=== PATIENT | female | born 1950 | race Caucasian/White ===

== ENCOUNTER → 2016-10-19 | Outpatient (CLI) | payer MEDICARE ==
--- NOTE | 2016-10-27 12:02 | P.ARTDOP ---
Arterial Doppler LOWER EXTREMITY ARTERIAL DOPPLER: DATE OF SERVICE: 10/19/2016 Reason for study: PVD suspected. Doppler waveforms: Multiphasic bilaterally throughout Pulse volume recording: Normal configuration. Pressure gradients: None. Ankle-brachial indices: Greater than 1 bilaterally. Toe pressures: 114 on the right, 123 on the left Impression: Normal study.
== END | disposition home or self-care (01) ==
LOC: RADUSWWP 13:02
PROVIDERS: ATTEND Family Medicine
DX: I73.9 Peripheral vascular disease, unspecified (principal)
CPT/HCPCS: 93923

== ENCOUNTER 2016-11-10 13:39 | Emergency (ER) | payer MEDICARE ==
[2016-11-10] MEDS ORDERED: diphenhydrAMINE 50 MG/ML 1 ML VIAL IVP STA (14:09)
[2016-11-10] MEDS ORDERED: SODIUM CHLORIDE 0.9% 1,000 ML IV ONE (14:09)
[2016-11-10] MEDS ORDERED: METOCLOPRAMIDE 5 MG/ML 2 ML VIAL IVP STA (14:09)
[2016-11-10] MEDS ORDERED: DULoxetine HCL 60 MG CAPSULE.DR PO STA (14:12)
[2016-11-10] MEDS ORDERED: ATENOLOL 50 MG TAB PO STA (14:12)
--- NOTE | 2016-11-10 14:34 | ED ---
General Adult HPI - General Chief complaint: Abdominal Pain Stated complaint: NAUSEA,VOMITING Time Seen by Provider: 11/10/16 13:59 Source: patient, EMS Mode of arrival: EMS Limitations: no limitations - History of Present Illness Initial comments: This is a 66-year-old female with a history of diabetes, hypertension who presents to the department for vomiting since yesterday. She states that she had multiple episodes of vomiting that she cannot count. She's also had diarrhea. She was unable to take any of her blood pressure medications this morning. She denies any abdominal pain. She admits to feeling intermittent chills or no fevers. No dysuria or hematuria. No blood in the vomit or stool. No other complaints. - Related Data Home Medications Medication Instructions Recorded Confirmed ALPRAZolam [Xanax] 0.25 mg PO DAILY PRN 11/10/16 11/10/16 Aspirin EC [Ecotrin Low Dose] 81 mg PO DAILY 11/10/16 11/10/16 Atenolol 100 mg PO DAILY 11/10/16 11/10/16 Carisoprodol [Soma] 350 mg PO TID PRN 11/10/16 11/10/16 Cholecalciferol [Vitamin D3] 1,000 unit PO DAILY 11/10/16 11/10/16 Cyanocobalamin [Vitamin B-12] 1,000 mcg PO DAILY 11/10/16 11/10/16 DULoxetine HCL [Cymbalta] 60 mg PO DAILY 11/10/16 11/10/16 Dicyclomine [Bentyl] 20 mg PO QID 11/10/16 11/10/16 Ergocalciferol (Vitamin D2) 50,000 units PO FR 11/10/16 11/10/16 [Drisdol] Fenofibrate Nanocrystallized 48 mg PO DAILY 11/10/16 11/10/16 [Fenofibrate] Gabapentin [Neurontin] 300 mg PO BID 11/10/16 11/10/16 INSULIN LISPRO (For Pump) [humaLOG 0.01 units SQ-PUMP CONTINUOUS 11/10/16 (For Pump)] Lansoprazole [Prevacid] 30 mg PO DAILY 11/10/16 11/10/16 Levothyroxine Sodium [Synthroid] 100 mcg PO DAILY 11/10/16 11/10/16 Lisinopril [Zestril] 20 mg PO DAILY 11/10/16 11/10/16 Nortriptyline HCl [Pamelor] 75 mg PO DAILY 11/10/16 11/10/16 Pioglitazone HCl [Actos] 30 mg PO DAILY 11/10/16 11/10/16 Simvastatin [Zocor] 10 mg PO HS 11/10/16 11/10/16 Ubidecarenone [Co Q-10] 200 mg PO DAILY 11/10/16 11/10/16 Vit A,C & E/Lutein/Minerals 1 tab PO DAILY 11/10/16 11/10/16 [Ocuvite with Lutein Tablet] Zolpidem [Ambien] 10 mg PO HS PRN 11/10/16 11/10/16 amLODIPine BESYLATE [Norvasc] 15 mg PO DAILY 11/10/16 11/10/16 metFORMIN HCL 1,000 mg PO BID 11/10/16 11/10/16 sitaGLIPtin [Januvia] 50 mg PO DAILY 11/10/16 11/10/16 valACYclovir [Valtrex] 500 mg PO DAILY 11/10/16 11/10/16 Previous Rx's Medication Instructions Recorded Metoclopramide HCl [Reglan] 10 mg PO TID PRN #15 tablet 11/10/16 Allergies Allergy/AdvReac Type Severity Reaction Status Date / Time celecoxib [From Celebrex] Allergy Rash/Hives Verified 11/10/16 14:08 colistin Allergy Unknown Verified 11/10/16 14:08 [From Cortisporin-TC] hydrocortisone Allergy Unknown Verified 11/10/16 14:08 [From Cortisporin-TC] neomycin Allergy Unknown Verified 11/10/16 14:08 [From Cortisporin-TC] terconazole [From Terazol 3] Allergy Unknown Verified 11/10/16 14:08 thonzonium bromide Allergy Unknown Verified 11/10/16 14:08 [From Cortisporin-TC] adhesive tape AdvReac Nausea Verified 11/10/16 14:08 Review of Systems ROS Statement: Those systems with pertinent positive or pertinent negative responses have been documented in the HPI. ROS Other: All systems not noted in ROS Statement are negative. Past Medical History Past Medical History: Diabetes Mellitus, Fibromyalgia, Hypertension, Osteoarthritis (OA), Thyroid Disorder History of Any Multi-Drug Resistant Organisms: None Reported Past Surgical History: Back Surgery, Breast Surgery, Section, Cholecystectomy, Tonsillectomy Additional Past Surgical History / Comment(s): left breast, partial thyroid Past Psychological History: Depression Smoking Status: Never smoker Past Alcohol Use History: Rare Past Drug Use History: None Reported General Exam - General Exam Comments Initial Comments: Constitutional: Awake alert Appears comfortable Head: Normocephalic atraumatic Eyes: no conjunctival injection No scleral icterus EOMI Neck: No JVD Supple Heart: Tachycardia normal S1-S2 no murmurs Lungs: Clear to auscultation bilaterally No wheezing No rales Abdomen: Soft nondistended nontender Extremities: Non edematous DP pulses intact Radial pulses intact Neuro: A&Ox3 No focal neurologic deficits Psych: Appropriate mood and affect Limitations: no limitations Course Vital Signs 11/10/16 11/10/16 13:44 15:04 Temperature 98.6 F Pulse Rate 104 H 80 Respiratory 16 16 Rate Blood Pressure 209/91 197/90 O2 Sat by Pulse 99 99 Oximetry EKG Findings - EKG Comments: EKG Findings:: EKG showing sinus tachycardia at a rate of 107. No ST segment changes or T-wave inversions. QTC is 485. Other intervals are normal. No ectopy. Medical Decision Making - Medical Decision Making This 66-year-old female presents emergency room for nausea, vomiting, diarrhea. The patient feels much improved after Reglan and is tolerating oral fluids at bedside. The patient did have evidence for ketoacidosis on blood work however VBG did not show any decreased pH. There are ketones in her urine and this is likely from starvation ketosis from all the vomiting she's been having. At this time since the patient's vomiting is controlled feel itching go home and continue with Reglan at home. She can drink plenty of fluids and checked her sugars as needed. She can return if she has worsening or changing symptoms. All questions were answered. - Lab Data Result diagrams: 11/10/16 14:00 11/10/16 14:00 Lab Results 11/10/16 11/10/16 11/10/16 Range/Units 14:00 14:00 15:46 WBC 10.9 H (3.8-10.6) k/uL RBC 5.18 (3.80-5.40) m/uL Hgb 14.7 (11.4-16.0) gm/dL Hct 44.7 (34.0-46.0) % MCV 86.1 (80.0-100.0) fL MCH 28.3 (25.0-35.0) pg MCHC 32.9 (31.0-37.0) g/dL RDW 12.9 (11.5-15.5) % Plt Count 223 (150-450) k/uL Neutrophils % 81 % Lymphocytes % 10 % Monocytes % 7 % Eosinophils % 0 % Basophils % 1 % Neutrophils # 8.8 H (1.3-7.7) k/uL Lymphocytes # 1.1 (1.0-4.8) k/uL Monocytes # 0.7 (0-1.0) k/uL Eosinophils # 0.0 (0-0.7) k/uL Basophils # 0.1 (0-0.2) k/uL VBG pH (7.31-7.41) VBG pCO2 (37-51) mmHg VBG HCO3 (24-28) mmol/L Sodium 134 L (137-145) mmol/L Potassium 3.7 (3.5-5.1) mmol/L Chloride 97 L (98-107) mmol/L Carbon Dioxide 18 L (22-30) mmol/L Anion Gap 19 mmol/L BUN 12 (7-17) mg/dL Creatinine 0.47 L (0.52-1.04) mg/dL Est GFR (MDRD) Af Amer >60 (>60 ml/min/1.73 sqM) Est GFR (MDRD) Non-Af >60 (>60 ml/min/1.73 sqM) Glucose 219 H (74-99) mg/dL Calcium 9.9 (8.4-10.2) mg/dL Total Bilirubin 0.9 (0.2-1.3) mg/dL AST 24 (14-36) U/L ALT 26 (9-52) U/L Alkaline Phosphatase 72 (38-126) U/L Total Protein 7.8 (6.3-8.2) g/dL Albumin 5.0 (3.5-5.0) g/dL Amylase 59 (30-110) U/L Lipase 83 (23-300) U/L Urine Color Urine Appearance (Clear) Urine pH (5.0-8.0) Ur Specific [place] (1.001-1.035) Urine Protein (Negative) Urine Glucose (UA) (Negative) Urine Ketones (Negative) Urine Blood (Negative) Urine Nitrate (Negative) Urine Bilirubin (Negative) Urine Urobilinogen (<2.0) mg/dL Ur Leukocyte Esterase (Negative) Urine RBC (0-5) /hpf Urine WBC (0-5) /hpf Urine Bacteria (None) /hpf Acetone, Qual Positive (Negative) 11/10/16 11/10/16 Range/Units 15:53 15:53 WBC (3.8-10.6) k/uL RBC (3.80-5.40) m/uL Hgb (11.4-16.0) gm/dL Hct (34.0-46.0) % MCV (80.0-100.0) fL MCH (25.0-35.0) pg MCHC (31.0-37.0) g/dL RDW (11.5-15.5) % Plt Count (150-450) k/uL Neutrophils % % Lymphocytes % % Monocytes % % Eosinophils % % Basophils % % Neutrophils # (1.3-7.7) k/uL Lymphocytes # (1.0-4.8) k/uL Monocytes # (0-1.0) k/uL Eosinophils # (0-0.7) k/uL Basophils # (0-0.2) k/uL VBG pH 7.40 (7.31-7.41) VBG pCO2 34 L (37-51) mmHg VBG HCO3 21 L (24-28) mmol/L Sodium (137-145) mmol/L Potassium (3.5-5.1) mmol/L Chloride (98-107) mmol/L Carbon Dioxide (22-30) mmol/L Anion Gap mmol/L BUN (7-17) mg/dL Creatinine (0.52-1.04) mg/dL Est GFR (MDRD) Af Amer (>60 ml/min/1.73 sqM) Est GFR (MDRD) Non-Af (>60 ml/min/1.73 sqM) Glucose (74-99) mg/dL Calcium (8.4-10.2) mg/dL Total Bilirubin (0.2-1.3) mg/dL AST (14-36) U/L ALT (9-52) U/L Alkaline Phosphatase (38-126) U/L Total Protein (6.3-8.2) g/dL Albumin (3.5-5.0) g/dL Amylase (30-110) U/L Lipase (23-300) U/L Urine Color Yellow Urine Appearance Clear (Clear) Urine pH 7.0 (5.0-8.0) Ur Specific [place] 1.011 (1.001-1.035) Urine Protein 2+ H (Negative) Urine Glucose (UA) 4+ H (Negative) Urine Ketones 3+ H (Negative) Urine Blood Negative (Negative) Urine Nitrate Negative (Negative) Urine Bilirubin Negative (Negative) Urine Urobilinogen <2.0 (<2.0) mg/dL Ur Leukocyte Esterase Negative (Negative) Urine RBC 1 (0-5) /hpf Urine WBC 1 (0-5) /hpf Urine Bacteria Rare H (None) /hpf Acetone, Qual (Negative) Disposition Clinical Impression: Nausea vomiting and diarrhea, Ketosis Disposition: HOME SELF-CARE Condition: Stable Instructions: Acute Nausea and Vomiting (ED) Prescriptions: Metoclopramide HCl [Reglan] 10 mg PO TID PRN #15 tablet PRN Reason: Nausea Referrals: Keyon Bryant MD [Primary Care Provider] - 1-2 days
[2016-11-10 14:58] LABS: Basophils # (A) 0.1 k/uL (0-0.2); Basophils % (A) 1 %; CH 28.9; CHCM 33.6; Eosinophils % (A) 0 %; HCT 44.7 % (34.0-46.0); HGB 14.7 gm/dL (11.4-16.0); Luc # (Auto) 0.14; Luc % (Auto) 1; Lymphocytes # (A) 1.1 k/uL (1.0-4.8); Lymphocytes % (A) 10 %; MCH 28.3 pg (25.0-35.0); MCHC 32.9 g/dL (31.0-37.0); MCV 86.1 fL (80.0-100.0); Mean Platelet Volume 8.4; Monocytes # (A) 0.7 k/uL (0-1.0); Monocytes % (A) 7 %; Neutrophils # (A) 8.8 k/uL (1.3-7.7); Neutrophils % (A) 81 %; RBC 5.18 m/uL (3.80-5.40); RDW 12.9 % (11.5-15.5); WBC 10.9 k/uL (3.8-10.6); WBC (Perox) 10.62
[2016-11-10 15:15] LABS: ALT 26 U/L (9-52); AST 24 U/L (14-36); Alkaline Phosphatase 72 U/L (38-126); Amylase 59 U/L (30-110); Anion Gap 19 mmol/L; Blood Urea Nitrogen 12 mg/dL (7-17); Calcium 9.9 mg/dL (8.4-10.2); Carbon Dioxide 18 mmol/L (22-30); Chloride 97 mmol/L (98-107); Glucose 219 mg/dL (74-99); Non-African American GFR(MDRD) >60 (>60 ml/min/1.73 sqM); Potassium 3.7 mmol/L (3.5-5.1); Sodium 134 mmol/L (137-145); Total Bilirubin 0.9 mg/dL (0.2-1.3); Total Protein 7.8 g/dL (6.3-8.2)
[2016-11-10 16:09] LABS: Appearance,Urine Clear (Clear); Bacteria,Urine Rare /hpf; Bilirubin,Urine Negative (Negative); Glucose,Urine (UA) 4+ (Negative); Leukocyte Esterase,Urine Negative (Negative); Nitrite,Urine Negative (Negative); Particle Count 620; Protein,Urine 2+ (Negative); RBC,Urine 1 /hpf (0-5); Specific Gravity,Urine 1.011 (1.001-1.035); UA Billing (MACRO vs. MICRO) MICRO; Urobilinogen,Urine <2.0 mg/dL (<2.0); WBC,Urine 1 /hpf (0-5)
[2016-11-10 16:14] LABS: VBG PH 7.4 (7.31-7.41)
[2016-11-10 16:16] LABS: Ketones,Urine 3+ (Negative)
[2016-11-10 16:34] VITALS: BP 138/87; PULSE 87; RESP 18; TEMP 97.9
== END 2016-11-10 16:33 | disposition home or self-care (01) ==
LOC: EC 13:39
DX: R11.2 Nausea with vomiting, unspecified (principal); R19.7 Diarrhea, unspecified; E87.2 Acidosis; I10 Essential (primary) hypertension; E11.8 Type 2 diabetes mellitus with unspecified complications; M79.7 Fibromyalgia; E07.9 Disorder of thyroid, unspecified; M19.90 Unspecified osteoarthritis, unspecified site; L29.9 Pruritus, unspecified; F32.9 Major depressive disorder, single episode, unspecified; Z79.84 Long term (current) use of oral hypoglycemic drugs; Z96.41 Presence of insulin pump (external) (internal); Z79.82 Long term (current) use of aspirin; Z79.4 Long term (current) use of insulin; Z79.899 Other long term (current) drug therapy; Z88.1 Allergy status to other antibiotic agents; Z88.8 Allergy status to other drugs, medicaments and biological substances
CPT/HCPCS: 99284; 96374; 96375; 96361; 36415; 93005; 80053; 82150; 82803; 82009; 83690; 85025; 81001; J1200; J2765

== ENCOUNTER → 2017-05-30 | Outpatient (CLI) | payer MEDICARE ==
--- NOTE | 2017-06-01 07:07 | MM ---
Reason for exam: screening (asymptomatic). Last mammogram was performed 1 year and 1 month ago. History: Patient is postmenopausal and has history of high-risk lesion on a previous biopsy at age 62. High risk left breast needle localization of both breasts, January 30, 2013. High risk left mammotome panel of the left breast, January 23, 2013. Took estrogen for 2 years. Took progesterone for 2 years. Physical Findings: A clinical breast exam by your physician is recommended on an annual basis and results should be correlated with mammographic findings. MG 3D Screening Mammo W/Cad Bilateral CC and MLO view(s) were taken. Prior study comparison: May 12, 2016, bilateral MG 3d diag mammo w/cad GOPAL. March 12, 2015, bilateral MG diagnostic mammo w CAD GOPAL. February 04, 2014, bilateral MG diagnostic mammo w CAD GOPAL. There are scattered fibroglandular densities. Finding: There are a few typically benign round calcifications in both breasts. There is no discrete abnormality. ASSESSMENT: Benign, BI-RAD 2 RECOMMENDATION: Routine screening mammogram of both breasts in 1 year.
== END | disposition home or self-care (01) ==
LOC: RADMAMWWP 12:58
PROVIDERS: ATTEND Family Medicine
DX: Z12.31 Encounter for screening mammogram for malignant neoplasm of breast (principal)
CPT/HCPCS: 77063; G0202

== ENCOUNTER → 2018-06-08 | Outpatient (CLI) | payer MEDICARE ==
--- NOTE | 2018-06-09 11:05 | MM ---
Reason for exam: screening (asymptomatic). Last mammogram was performed 1 year ago. History: Patient is postmenopausal and has history of high-risk lesion on a previous biopsy at age 62. High risk left breast needle localization of both breasts, January 30, 2013. High risk left mammotome panel of the left breast, January 23, 2013. Took estrogen for 2 years. Took progesterone for 2 years. Physical Findings: A clinical breast exam by your physician is recommended on an annual basis and results should be correlated with mammographic findings. MG 3D Screening Mammo W/Cad Bilateral CC and MLO view(s) were taken. Prior study comparison: May 30, 2017, bilateral MG 3d screening mammo w/cad. May 12, 2016, bilateral MG 3d diag mammo w/cad GOPAL. The breast tissue is heterogeneously dense. This may lower the sensitivity of mammography. Stable benign calcifications. There is no discrete abnormality. No significant changes when compared with prior studies. ASSESSMENT: Benign, BI-RAD 2 RECOMMENDATION: Routine screening mammogram of both breasts in 1 year.
== END | disposition home or self-care (01) ==
LOC: RADMAMWWP 14:42
PROVIDERS: ATTEND Family Medicine
DX: Z12.31 Encounter for screening mammogram for malignant neoplasm of breast (principal)
CPT/HCPCS: 77063; 77067

== ENCOUNTER 2019-03-12 13:29 | Inpatient (IN) | payer MEDICARE ==
--- NOTE | 2019-03-12 14:23 | ED ---
General Adult HPI - General Chief complaint: GI Bleed Stated complaint: Blood in stool Time Seen by Provider: 03/12/19 13:35 Source: patient, RN notes reviewed Mode of arrival: wheelchair Limitations: no limitations - History of Present Illness Initial comments: This is a 68-year-old female who presents emergency Department complaining of GI bleed. Patient states she's an upper respiratory infection over the last few days and a couple episodes of diarrhea but not heavy diarrhea. Patient states she started having some bright red blood per rectum last night he said 5-6 total episodes today. Patient denies any abdominal pain. Patient's any fever or chills. Patient stated back pain. Patient denies any dysuria hematuria urinary frequency. Patient denies headache patient denies numbness weakness. Patient denies any chest pain or palpitations. Patient denies any shortness of breath. She does states she has overall generalized weakness. - Related Data Home Medications Medication Instructions Recorded Confirmed Aspirin EC [Ecotrin Low Dose] 81 mg PO DAILY 11/10/16 03/12/19 Atenolol 100 mg PO DAILY 11/10/16 03/12/19 Cholecalciferol [Vitamin D3] 2,000 unit PO DAILY 11/10/16 03/12/19 Cyanocobalamin [Vitamin B-12] 1,000 mcg PO DAILY 11/10/16 03/12/19 DULoxetine HCL [Cymbalta] 60 mg PO DAILY 11/10/16 03/12/19 Dicyclomine [Bentyl] 20 mg PO QID 11/10/16 03/12/19 Ergocalciferol (Vitamin D2) 50,000 units PO FR 11/10/16 03/12/19 [Drisdol] Fenofibrate Nanocrystallized 48 mg PO DAILY 11/10/16 03/12/19 [Fenofibrate] Gabapentin [Neurontin] 300 mg PO TID 11/10/16 03/12/19 INSULIN LISPRO (For Pump) [humaLOG 0.01 units SQ-PUMP CONTINUOUS 11/10/16 03/12/19 (For Pump)] Lansoprazole [Prevacid] 30 mg PO DAILY 11/10/16 03/12/19 Levothyroxine Sodium [Synthroid] 100 mcg PO DAILY 11/10/16 03/12/19 Lisinopril [Zestril] 20 mg PO DAILY 11/10/16 03/12/19 Nortriptyline HCl [Pamelor] 75 mg PO DAILY 11/10/16 03/12/19 Pioglitazone HCl [Actos] 30 mg PO DAILY 11/10/16 03/12/19 Ubidecarenone [Co Q-10] 200 mg PO DAILY 11/10/16 03/12/19 Zolpidem [Ambien] 10 mg PO HS PRN 11/10/16 03/12/19 metFORMIN HCL 1,000 mg PO BID 11/10/16 03/12/19 Acetaminophen Tab [Tylenol Tab] 650 mg PO Q6H PRN 03/12/19 03/12/19 Ascorbic Acid [Vitamin C] 500 mg PO BID 03/12/19 03/12/19 Melatonin 5 mg PO HS 03/12/19 03/12/19 Meloxicam [Mobic] 15 mg PO DAILY 03/12/19 03/12/19 Simvastatin [Zocor] 20 mg PO HS 03/12/19 03/12/19 amLODIPine [Norvasc] 2.5 mg PO TID 03/12/19 03/12/19 Allergies Allergy/AdvReac Type Severity Reaction Status Date / Time celecoxib [From Celebrex] Allergy Rash/Hives Verified 03/12/19 14:03 colistin Allergy Unknown Verified 03/12/19 14:03 [From Cortisporin-TC] hydrocortisone Allergy Unknown Verified 03/12/19 14:03 [From Cortisporin-TC] neomycin Allergy Unknown Verified 03/12/19 14:03 [From Cortisporin-TC] terconazole [From Terazol 3] Allergy Unknown Verified 03/12/19 14:03 thonzonium bromide Allergy Unknown Verified 03/12/19 14:03 [From Cortisporin-TC] adhesive tape AdvReac Nausea Verified 03/12/19 14:03 Review of Systems ROS Statement: Those systems with pertinent positive or pertinent negative responses have been documented in the HPI. ROS Other: All systems not noted in ROS Statement are negative. Past Medical History Past Medical History: Diabetes Mellitus, Fibromyalgia, Hypertension, Osteoarthritis (OA), Thyroid Disorder History of Any Multi-Drug Resistant Organisms: None Reported Past Surgical History: Back Surgery, Breast Surgery, Section, Cholecystectomy, Tonsillectomy Additional Past Surgical History / Comment(s): left breast, partial thyroid Past Psychological History: Depression Smoking Status: Never smoker Past Alcohol Use History: Rare Past Drug Use History: None Reported General Exam - General Exam Comments Initial Comments: GENERAL: Patient is well-developed and well-nourished. Patient is nontoxic and well- hydrated and is in mild distress. ENT: Neck is soft and supple. No significant lymphadenopathy is noted. Oropharynx is clear. Moist mucous membranes. Neck has full range of motion without eliciting any pain. EYES: The sclera were anicteric and conjunctiva were pink and moist. Extraocular movements were intact and pupils were equal round and reactive to light. Ey elids were unremarkable. PULMONARY: Unlabored respirations. Good breath sounds bilaterally. No audible rales rhonchi or wheezing was noted. CARDIOVASCULAR: There is a regular rate and rhythm without any murmurs gallops or rubs. ABDOMEN: Soft and nontender with normal bowel sounds. SKIN: Skin is clear with no lesions or rashes and otherwise unremarkable. NEUROLOGIC: Patient is alert and oriented x3. Cranial nerves II through XII are grossly intact. Motor and sensory are also intact. Normal speech, volume and content. Symmetrical smile. MUSCULOSKELETAL: Normal extremities with adequate strength and full range of motion. LYMPHATICS: No significant lymphadenopathy is noted PSYCHIATRIC: Normal psychiatric evaluation. Limitations: no limitations Course Vital Signs 03/12/19 03/12/19 03/12/19 13:32 15:17 16:21 Temperature 98.2 F Pulse Rate 68 70 70 Respiratory 16 18 18 Rate Blood Pressure 105/61 136/66 144/93 O2 Sat by Pulse 96 98 96 Oximetry Medical Decision Making - Medical Decision Making EKG shows normal sinus rhythm at 62 bpm NE interval is 182 QRS is 80 QT interval 420 QTC is 426 per patient's EKG shows no ST segment elevation or depression. Doctor Dr. carson but admitting the patient he agreed to admit the patient admitted the patient consult to GI and repeated CBCs. - Lab Data Result diagrams: 03/12/19 14:27 03/12/19 14:27 Lab Results 03/12/19 03/12/19 03/12/19 Range/Units 14:27 14:27 14:27 WBC 12.3 H (3.8-10.6) k/uL RBC 4.73 (3.80-5.40) m/uL Hgb 13.0 (11.4-16.0) gm/dL Hct 40.2 (34.0-46.0) % MCV 84.9 (80.0-100.0) fL MCH 27.6 (25.0-35.0) pg MCHC 32.5 (31.0-37.0) g/dL RDW 13.1 (11.5-15.5) % Plt Count 153 (150-450) k/uL Neutrophils % 84 % Lymphocytes % 9 % Monocytes % 6 % Eosinophils % 0 % Basophils % 0 % Neutrophils # 10.3 H (1.3-7.7) k/uL Lymphocytes # 1.1 (1.0-4.8) k/uL Monocytes # 0.7 (0-1.0) k/uL Eosinophils # 0.1 (0-0.7) k/uL Basophils # 0.0 (0-0.2) k/uL PT (9.0-12.0) sec INR (<1.2) APTT (22.0-30.0) sec Sodium 136 L (137-145) mmol/L Potassium 4.1 (3.5-5.1) mmol/L Chloride 100 (98-107) mmol/L Carbon Dioxide 25 (22-30) mmol/L Anion Gap 11 mmol/L BUN 14 (7-17) mg/dL Creatinine 0.67 (0.52-1.04) mg/dL Est GFR (CKD-EPI)AfAm >90 (>60 ml/min/1.73 sqM) Est GFR (CKD-EPI)NonAf >90 (>60 ml/min/1.73 sqM) Glucose 185 H (74-99) mg/dL Calcium 8.6 (8.4-10.2) mg/dL Total Bilirubin 0.6 (0.2-1.3) mg/dL AST 30 (14-36) U/L ALT 17 (9-52) U/L Alkaline Phosphatase 71 (38-126) U/L Total Protein 6.1 L (6.3-8.2) g/dL Albumin 3.8 (3.5-5.0) g/dL Blood Type O Negative Blood Type Confirm Blood Type Recheck CABO Indicated Antibody Screen NEGATIVE Spec Expiration Date 03/15/2019232603/12/19 03/12/19 Range/Units 14:27 14:39 WBC (3.8-10.6) k/uL RBC (3.80-5.40) m/uL Hgb (11.4-16.0) gm/dL Hct (34.0-46.0) % MCV (80.0-100.0) fL MCH (25.0-35.0) pg MCHC (31.0-37.0) g/dL RDW (11.5-15.5) % Plt Count (150-450) k/uL Neutrophils % % Lymphocytes % % Monocytes % % Eosinophils % % Basophils % % Neutrophils # (1.3-7.7) k/uL Lymphocytes # (1.0-4.8) k/uL Monocytes # (0-1.0) k/uL Eosinophils # (0-0.7) k/uL Basophils # (0-0.2) k/uL PT 9.9 (9.0-12.0) sec INR 0.9 (<1.2) APTT 26.3 (22.0-30.0) sec Sodium (137-145) mmol/L Potassium (3.5-5.1) mmol/L Chloride (98-107) mmol/L Carbon Dioxide (22-30) mmol/L Anion Gap mmol/L BUN (7-17) mg/dL Creatinine (0.52-1.04) mg/dL Est GFR (CKD-EPI)AfAm (>60 ml/min/1.73 sqM) Est GFR (CKD-EPI)NonAf (>60 ml/min/1.73 sqM) Glucose (74-99) mg/dL Calcium (8.4-10.2) mg/dL Total Bilirubin (0.2-1.3) mg/dL AST (14-36) U/L ALT (9-52) U/L Alkaline Phosphatase (38-126) U/L Total Protein (6.3-8.2) g/dL Albumin (3.5-5.0) g/dL Blood Type Blood Type Confirm O Negative Blood Type Recheck Antibody Screen Spec Expiration Date Disposition Clinical Impression: Gastrointestinal hemorrhage Disposition: ADMITTED IP TO THIS [facility] Referrals: Keyon Bryant MD [Primary Care Provider] - 1-2 days Time of Disposition: 16:27
[2019-03-12 14:39] LABS: Basophils % (A) 0 %; Eosinophils # (A) 0.1 k/uL (0-0.7); Eosinophils % (A) 0 %; HCT 40.2 % (34.0-46.0); Lymphocytes # (A) 1.1 k/uL (1.0-4.8); Lymphocytes % (A) 9 %; MCH 27.6 pg (25.0-35.0); MCHC 32.5 g/dL (31.0-37.0); MCV 84.9 fL (80.0-100.0); Mean Platelet Volume 8.9; Monocytes # (A) 0.7 k/uL (0-1.0); Monocytes % (A) 6 %; Neutrophils # (A) 10.3 k/uL (1.3-7.7); Neutrophils % (A) 84 %; Platelet Count 153 k/uL (150-450); RBC 4.73 m/uL (3.80-5.40); RDW 13.1 % (11.5-15.5); WBC 12.3 k/uL (3.8-10.6)
[2019-03-12 14:47] LABS: INR 0.9 (<1.2); Partial Thromboplastin Time 26.3 sec (22.0-30.0); Prothrombin Time 9.9 sec (9.0-12.0)
[2019-03-12 15:10] LABS: ALT 17 U/L (9-52); AST 30 U/L (14-36); African American GFR (CKD) >90 (>60 ml/min/1.73 sqM); Albumin 3.8 g/dL (3.5-5.0); Alkaline Phosphatase 71 U/L (38-126); Anion Gap 11 mmol/L; Blood Urea Nitrogen 14 mg/dL (7-17); Calcium 8.6 mg/dL (8.4-10.2); Carbon Dioxide 25 mmol/L (22-30); Chloride 100 mmol/L (98-107); Glucose 185 mg/dL (74-99); Potassium 4.1 mmol/L (3.5-5.1); Sodium 136 mmol/L (137-145); Total Bilirubin 0.6 mg/dL (0.2-1.3); Total Protein 6.1 g/dL (6.3-8.2)
[2019-03-12] MEDS ORDERED: SODIUM CHLORIDE 0.9% 1,000 ML IV ONE (16:27)
[2019-03-12 18:06] LABS: Glucose,Whole Blood 162 mg/dL (75-99)
[2019-03-12 20:07] VITALS: BMI 34.7
[2019-03-12 20:12] LABS: Glucose,Whole Blood 176 mg/dL (75-99)
[2019-03-12] MEDS ORDERED: metFORMIN 500 MG TAB PO SCH (21:00)
[2019-03-12] MEDS: DULoxetine HCL 60 MG CAPSULE.DR PO SCH (21:29)
[2019-03-12] MEDS: ASCORBIC ACID 500 MG TAB PO SCH (21:30)
[2019-03-12] MEDS: amLODIPine 2.5 MG TAB PO SCH (21:30)
[2019-03-12] MEDS: ATORVASTATIN 10 MG TAB PO SCH (21:30)
[2019-03-12] MEDS: MELATONIN 5 MG TABLET PO SCH (21:30)
[2019-03-12] MEDS: DICYCLOMINE 20 MG TAB PO SCH (21:30)
[2019-03-12] MEDS: GABAPENTIN 300 MG CAP PO SCH (22:49)
[2019-03-12] MEDS: ZOLPIDEM 10 MG TAB PO PRN (23:38)
[2019-03-13 02:17] LABS: Glucose,Whole Blood 152 mg/dL (75-99)
[2019-03-13] MEDS: ACETAMINOPHEN TAB 325 MG TAB PO PRN ×3 (04:29→19:48)
[2019-03-13] MEDS: LEVOTHYROXINE 100 MCG TAB PO SCH (05:58)
[2019-03-13 08:33] LABS: Glucose,Whole Blood 153 mg/dL (75-99)
[2019-03-13 08:57] LABS: Basophils % (A) 0 %; Eosinophils % (A) 0 %; HGB 12.5 gm/dL (11.4-16.0); Lymphocytes # (A) 1.4 k/uL (1.0-4.8); Lymphocytes % (A) 12 %; MCH 26.6 pg (25.0-35.0); MCHC 31.3 g/dL (31.0-37.0); Mean Platelet Volume 9.3; Monocytes # (A) 0.5 k/uL (0-1.0); Monocytes % (A) 4 %; Neutrophils # (A) 9.1 k/uL (1.3-7.7); Neutrophils % (A) 82 %; Platelet Count 142 k/uL (150-450); RBC 4.71 m/uL (3.80-5.40); RDW 13.6 % (11.5-15.5); WBC 11.1 k/uL (3.8-10.6)
[2019-03-13] MEDS ORDERED: NON-FORMULARY DRUG (Ubidecarenone [Co Q-10] 200 MG) PO SCH (09:00)
[2019-03-13] MEDS: ASPIRIN 81 MG PO SCH (09:22)
[2019-03-13] MEDS: ASCORBIC ACID 500 MG TAB PO SCH ×2 (09:22→21:02)
[2019-03-13] MEDS: DICYCLOMINE 20 MG TAB PO SCH ×4 (09:22→21:02)
[2019-03-13] MEDS: CYANOCOBALAMIN 500 MCG TAB PO SCH (09:22)
[2019-03-13] MEDS: CHOLECALCIFEROL 1,000 UNIT TAB PO SCH (09:22)
[2019-03-13] MEDS: FENOFIBRATE 54 MG TAB PO SCH (09:23)
[2019-03-13] MEDS: PIOGLITAZONE 30 MG TAB PO SCH (09:23)
[2019-03-13] MEDS: MELOXICAM 7.5 MG TAB PO SCH (09:23)
[2019-03-13] MEDS: GABAPENTIN 300 MG CAP PO SCH ×3 (09:23→21:02)
[2019-03-13] MEDS: NORTRIPTYLINE 25 MG CAP PO SCH (09:27)
[2019-03-13] MEDS: ATENOLOL 50 MG TAB PO SCH (09:58)
[2019-03-13] MEDS: PANTOPRAZOLE 40 MG TABLET PO SCH (09:59)
[2019-03-13] MEDS: LISINOPRIL 20 MG TAB PO SCH (09:59)
[2019-03-13] MEDS: amLODIPine 2.5 MG TAB PO SCH ×3 (09:59→21:02)
[2019-03-13] MEDS: DULoxetine HCL 60 MG CAPSULE.DR PO SCH (09:59)
[2019-03-13] MEDS ORDERED: INSULIN ASPART (NovoLOG) 100 UNIT/ML VIAL SQ PRN (11:02)
[2019-03-13] MEDS ORDERED: INSULIN PUMP BASAL RATES 1 EACH MISC MISCELLANE PRN (11:02)
[2019-03-13] MEDS ORDERED: INSULIN PUMP ACTIVE INSULIN 1 EACH MISC MISCELLANE PRN (11:02)
[2019-03-13] MEDS ORDERED: INSPUCOR MISCELLANE PRN (11:02)
[2019-03-13] MEDS ORDERED: INSULIN PUMP TARGET GLUCOSE 1 EACH MISC MISCELLANE PRN (11:02)
[2019-03-13 11:09] LABS: Basophils % (A) 0 %; Eosinophils % (A) 0 %; HCT 38.7 % (34.0-46.0); HGB 12.2 gm/dL (11.4-16.0); Lymphocytes # (A) 0.8 k/uL (1.0-4.8); Lymphocytes % (A) 9 %; MCH 26.9 pg (25.0-35.0); MCHC 31.4 g/dL (31.0-37.0); MCV 85.7 fL (80.0-100.0); Mean Platelet Volume 8.8; Monocytes # (A) 0.5 k/uL (0-1.0); Monocytes % (A) 5 %; Neutrophils % (A) 84 %; Platelet Count 132 k/uL (150-450); RBC 4.52 m/uL (3.80-5.40); RDW 13.3 % (11.5-15.5); WBC 9.5 k/uL (3.8-10.6)
[2019-03-13 12:01] LABS: Glucose,Whole Blood 173 mg/dL (75-99)
--- NOTE | 2019-03-13 12:05 | P.CONS ---
History of Present Illness - Reason for Consult Consult date: 03/13/19 GI bleed Requesting physician: Perez Phan - Chief Complaint GI bleed - History of Present Illness 68-year-old female recent upper respiratory infection diarrhea admitted with diffuse lower abdominal pain with passage of several bright red bowel movements yesterday fever T-max 101. Patient is passed 3 blood tinged bowel movements this morning. Past medical history diabetes fiber myalgia GERD hypertension hypothyroidism IBS insomnia cholecystectomy depression. No history GI bleed. Last colonoscopy 2005 to her memory a few small polyps removed. No mentioning of colonic diverticular disease. No history of inflammatory bowel diseases. No history of gastric or bowel resections. Admission hemoglobin 13 presently 12.2. Platelet 153. White count 12.3 present ly 9.5. INR 0.9. BUN 14. Creatinine 0.6. Home medications include Mobic baby aspirin. Recent travels no sick contacts. Review of Systems Constitutional: Denies fever, chills, sweats, weight gain, or loss. HEENT: Negative for migraines, blurred vision or loss, earaches, drainage, tinnitus, oral mucosal lesions, dysphagia, or odynophagia. CARDIAC: Negative for chest pain, arrhythmias, or palpitation. RESPIRATORY: Negative for shortness of breath, hemoptysis, cough, or sputum production. GI: See HPI for pertinent findings. : Negative for hematuria, urgency, frequency, polyuria, or dysuria. GYNc: Denies possibility of . Negative vaginal discharge. MUSCULOSKELETAL: Negative for muscle aches, swelling, arthritis, and arthralgias. NEUROLOGIC: Negative for stroke or TIA. ENDOCRINE: Negative for thyroid problems. SKIN: Negative for rash or itching. PSYCHIATRIC: Negative history for depression and anxiety Past Medical History Past Medical History: Diabetes Mellitus, Fibromyalgia, GERD/Reflux, Hypertension, Osteoarthritis (OA), Thyroid Disorder Additional Past Medical History / Comment(s): Hypothyroidism, DDD, IBS, insomnia History of Any Multi-Drug Resistant Organisms: None Reported Past Surgical History: Back Surgery, Breast Surgery, Section, Cholecystectomy, Orthopedic Surgery, Tonsillectomy Additional Past Surgical History / Comment(s): Left breast lumpectomy 2012, p artial thyroidectomy, spinal fusion L3-L4 11/2014, C section x 3, Left knee replaced 2010, multiple D&C's, cataract surgery bilaterally, repair of a macular hole right eye Past Anesthesia/Blood Transfusion Reactions: Postoperative Nausea & Vomiting (PONV) Smoking Status: Never smoker - Past Family History Father Family Medical History: Coronary Artery Disease (CAD) Mother Family Medical History: Coronary Artery Disease (CAD) Medications and Allergies Home Medications Medication Instructions Recorded Confirmed Type Aspirin EC [Ecotrin Low Dose] 81 mg PO DAILY 11/10/16 03/12/19 History Atenolol 100 mg PO DAILY 11/10/16 03/12/19 History Cholecalciferol [Vitamin D3] 2,000 unit PO DAILY 11/10/16 03/12/19 History Cyanocobalamin [Vitamin B-12] 1,000 mcg PO DAILY 11/10/16 03/12/19 History DULoxetine HCL [Cymbalta] 60 mg PO DAILY 11/10/16 03/12/19 History Dicyclomine [Bentyl] 20 mg PO QID 11/10/16 03/12/19 History Ergocalciferol (Vitamin D2) 50,000 units PO FR 11/10/16 03/12/19 History [Drisdol] Fenofibrate Nanocrystallized 48 mg PO DAILY 11/10/16 03/12/19 History [Fenofibrate] Gabapentin [Neurontin] 300 mg PO TID 11/10/16 03/12/19 History INSULIN LISPRO (For Pump) [humaLOG 0.01 units SQ-PUMP CONTINUOUS 11/10/16 03/12/19 History (For Pump)] Lansoprazole [Prevacid] 30 mg PO DAILY 11/10/16 03/12/19 History Levothyroxine Sodium [Synthroid] 100 mcg PO DAILY 11/10/16 03/12/19 History Lisinopril [Zestril] 20 mg PO DAILY 11/10/16 03/12/19 History Nortriptyline HCl [Pamelor] 75 mg PO DAILY 11/10/16 03/12/19 History Pioglitazone HCl [Actos] 30 mg PO DAILY 11/10/16 03/12/19 History Ubidecarenone [Co Q-10] 200 mg PO DAILY 11/10/16 03/12/19 History Zolpidem [Ambien] 10 mg PO HS PRN 11/10/16 03/12/19 History metFORMIN HCL 1,000 mg PO BID 11/10/16 03/12/19 History Acetaminophen Tab [Tylenol Tab] 650 mg PO Q6H PRN 03/12/19 03/12/19 History Ascorbic Acid [Vitamin C] 500 mg PO BID 03/12/19 03/12/19 History Melatonin 5 mg PO HS 03/12/19 03/12/19 History Meloxicam [Mobic] 15 mg PO DAILY 03/12/19 03/12/19 History Simvastatin [Zocor] 20 mg PO HS 03/12/19 03/12/19 History amLODIPine [Norvasc] 2.5 mg PO TID 03/12/19 03/12/19 History Allergies Allergy/AdvReac Type Severity Reaction Status Date / Time celecoxib [From Celebrex] Allergy Rash/Hives Verified 03/12/19 14:03 colistin Allergy Unknown Verified 03/12/19 14:03 [From Cortisporin-TC] hydrocortisone Allergy Unknown Verified 03/12/19 14:03 [From Cortisporin-TC] neomycin Allergy Unknown Verified 03/12/19 14:03 [From Cortisporin-TC] terconazole [From Terazol 3] Allergy Unknown Verified 03/12/19 14:03 thonzonium bromide Allergy Unknown Verified 03/12/19 14:03 [From Cortisporin-TC] adhesive tape AdvReac Nausea Verified 03/12/19 14:03 Physical Exam Vitals: Vital Signs Temp Pulse Pulse Resp BP BP Pulse Ox 03/13/19 04:21 99.6 F 92 16 141/57 87 L 03/13/19 00:30 18 03/12/19 22:55 98.0 F 03/12/19 21:00 101 F H 76 18 165/81 90 L 03/12/19 18:01 99 F 77 16 142/67 96 03/12/19 17:32 98.5 F 75 18 165/71 96 03/12/19 16:21 70 18 144/93 96 03/12/19 15:17 70 18 136/66 98 03/12/19 13:32 98.2 F 68 16 105/61 96 Intake and Output 03/12/19 03/13/19 03/13/19 22:59 06:59 14:59 Intake Total 600 Balance 600 Intake: Intake, IV Titration 600 Amount Sodium Chloride 0.9% 1, 600 000 ml @ 75 mls/hr IV . [id number] ONE Rx#:[id number] Other: Voiding Method Toilet # Voids 1 # Bowel Movements 1 General appearance: The patient is alert, oriented, in no acute distress. HET: Head is normocephalic and atraumatic. Pupils are equal and reactive. Oropharynx is clear without lesions. Neck: Supple without lymphadenopathy. Trachea midline. Heart: S1 S2. Regular rate and rhythm. Lungs: No crackles or wheezes are heard. Abdomen: Soft, tenderness bilateral lower abdomen, nondistended with bowel sounds. No peritoneal signs. No palpable organomegaly or masses. Extremities: Normal skin color and turgor. No cyanosis, rash, ulceration, clubbing, or edema. Radial and pedal pulses are 2/4 bilaterally. Neurological: No focal deficits. Strength and sensation are grossly intact. Results CBC & Chem 7: 03/14/19 07:20 03/14/19 07:20 Labs: Abnormal Lab Results - Last 24 Hours (Table) 03/12/19 03/12/19 03/12/19 Range/Units 14:27 14:27 18:05 WBC 12.3 H (3.8-10.6) k/uL Plt Count (150-450) k/uL Neutrophils # 10.3 H (1.3-7.7) k/uL Lymphocytes # (1.0-4.8) k/uL Sodium 136 L (137-145) mmol/L Glucose 185 H (74-99) mg/dL POC Glucose (mg/dL) 162 H (75-99) mg/dL Total Protein 6.1 L (6.3-8.2) g/dL 03/12/19 03/13/19 03/13/19 Range/Units 20:11 02:15 08:18 WBC 11.1 H (3.8-10.6) k/uL Plt Count 142 L (150-450) k/uL Neutrophils # 9.1 H (1.3-7.7) k/uL Lymphocytes # (1.0-4.8) k/uL Sodium (137-145) mmol/L Glucose (74-99) mg/dL POC Glucose (mg/dL) 176 H 152 H (75-99) mg/dL Total Protein (6.3-8.2) g/dL 03/13/19 03/13/1903/13/19 Range/Units 08:21 10:44 11:49 WBC (3.8-10.6) k/uL Plt Count 132 L (150-450) k/uL Neutrophils # 8.0 H (1.3-7.7) k/uL Lymphocytes # 0.8 L (1.0-4.8) k/uL Sodium (137-145) mmol/L Glucose (74-99) mg/dL POC Glucose (mg/dL) 153 H 173 H (75-99) mg/dL Total Protein (6.3-8.2) g/dL CT scan - abdomen: pending Assessment and Plan (1) Rectal bleeding Narrative/Plan: 68-year-old female admitted with diffuse lower abdominal pain fever with bright red blood bowel movements possible acute ischemic colitis possible inflammatory colitis possible infectious colitis. Current Visit: Yes Status: Acute Code(s): K62.5 - HEMORRHAGE OF ANUS AND RECTUM SNOMED Code(s): 80912632 Plan: 1. Patient is still passing blood tinged bowel movements and reporting abdominal pain. CT abdomen and pelvis. IV antibiotics Zosyn 3.375 g every 8 hours. Nothing by mouth except medications ice chips popsicles sparingly. Blood cultures. CBC BMP daily. Inpatient endoscopic exams discussed but will be contingent on clinical course and review of CT. Stool studies. GI prophy laxis. Thank you for this kind referral and the opportunity to participate in the care of your patient. This consultation was discussed with Dr. Lilly. The impression and plan of care have been directed as dictated.
[2019-03-13] MEDS: INSULIN PUMP MEAL BOLUS 1 UNIT MISC MISCELLANE SCH ×3 (12:52→21:01)
[2019-03-13] MEDS: IOPAMIDOL-300 CONTRAST 30 ML VIAL (ORAL USE) PO PRN ×2 (12:52→13:55)
--- NOTE | 2019-03-13 14:43 | CT ---
EXAMINATION TYPE: CT abdomen pelvis w con DATE OF EXAM: 03/13/2019 HISTORY: Rectal bleeding and abdominal pain. CT DLP: 1675mGycm Automated Exposure Control for Dose Reduction was Utilized. CONTRAST: CT scan of the abdomen and pelvis is performed with IV Contrast, patient injected with 100ml mL of Is ovue 300. COMPARISON: None. FINDINGS: LUNG BASES: Bibasilar consolidations are seen with low-attenuation internally, left greater than righ t also with air bronchograms, likely pneumonia. LIVER/GB: The liver is enlarged measuring 24.3 cm in craniocaudal dimension. There is also diffuse de creased attenuation of the hepatic parenchyma most commonly relating to mild degree hepatic steatosis and limiting evaluation for hepatic masses. Very minimal intrahepatic biliary ductal dilatation and extrahepatic biliary ductal dilatation are likely secondary to this patient's postcholecystectomy sta tus. PANCREAS: There is diffuse pancreatic parenchymal atrophy. No discrete ductal dilatation is appreciat ed. SPLEEN: No splenomegaly. ADRENALS: No significant abnormality is seen. KIDNEYS: Kidneys enhance and excrete symmetrically without hydronephrosis. BOWEL: There is a small hiatal hernia with either gastroesophageal reflux or delayed propulsion of co ntrast. There is long segment bowel wall thickening of the transverse colon and descending colon exte nding into the proximal sigmoid colon with areas of heterogenous because in the descending colon and splenic flexure. Pericolonic fat stranding and prominence of the vasa recta are also associated. No d ilated large or small bowel are present. UTERUS/ADNEXA: No gross abnormality seen. LYMPH NODES: No greater than 1cm abdominal or pelvic lymph nodes are appreciated. OSSEOUS STRUCTURES: Postsurgical changes of the lumbar spine are noted with moderate degenerative aleja nges of the thoracolumbar junction. OTHER: Small amount of free fluid is seen dependently within the posterior cul-de-sac. Moderate ather osclerosis is seen of the abdominal aorta and its branches. Ventral diastases recti is also incidenta lly seen. IMPRESSION: 1. Acute uncomplicated long segment transverse, descending, and proximal sigmoid acute colitis. Colon oscopy is recommended after resolution of symptoms to ensure no precipitating underlying mass as ther e is more focal bowel wall thickening in the redundant transverse colon and heterogeneity of the wall of the descending colon and splenic flexure. 2. Bibasilar airspace disease appears to represent pneumonia radiographically with areas of low-atten uation. 3. Mild degree hepatic steatosis.
[2019-03-13] MEDS: PIPERACILLIN-TAZOBACTAM 3.375 GM in SODIUM CHLORIDE 0.9% 100 ML IVPB SCH (16:42)
[2019-03-13 16:44] LABS: Glucose,Whole Blood 225 mg/dL (75-99)
[2019-03-13 20:11] LABS: Glucose,Whole Blood 157 mg/dL (75-99)
--- NOTE | 2019-03-13 20:22 | P.HPIM ---
History of Present Illness H&P Date: 03/13/19 Chief Complaint: bleeding per rectum History of presenting complaint: This is a pleasant [address] Bryant. Chronic stable medical conditions include diabetes, fibromyalgia, GERD, hypertension, osteoarthritis, hypothyroid, irritable bowel syndrome, depression. Patient with 2 days. Having bright red blood per rectum intermittent and variable amount. Also having increasing diffuse abdominal pain no nausea vomiting low-grade fever and rundown admitted for the same. Abdominal pain is generalized no radiation. Review of systems: GEN.: None EYES: None HEENT: None NECK: None RESPIRATORY: None CARDIOVASCULAR: None GASTROINTESTINAL: None GENITOURINARY: As above MUSCULOSKELETAL: Pain in the joints] LYMPHATICS: None HEMATOLOGICAL: None PSYCHIATRY: None NEUROLOGICAL: None Past medical history to include: Diabetes, fibromyalgia, GERD, hypertension, Giana arthritis, hypothyroid, irritable bowel syndrome, depression Social history: Lives alone. Does not smoke or drink alcohol. Family history: Coronary artery disease Physical examination: VITAL SIGNS: 98.2, 68, 16, 105/61, 96% room air GENERAL: 34.8, laying in bed uncomfortable. EYES: Pupils equal. Conjunctiva normal. HEENT: External appearance of nose and ears normal, oral cavity grossly normal. NECK: JVD not raised; masses not palpable. HEART: First and second heart sounds are normal; no edema. LUNGS: Respiratory rate normal; clear to auscultation. ABDOMEN: Soft, diffuse tenderness, liver spleen not palpable, no masses palpable. LYMPHATICS: No lymph nodes palpable in the axilla and neck. PSYCH: Alert and oriented x3; mood and affect anxiousl. NEUROLOGICAL: Cranial nerves grossly intact; no facial asymmetry, power and sensation grossly intact. Investigations, reviewed and the clinical context White count 9.5, hemoglobin 12.2, platelets 132 Hemoglobin 13.0, 12.5 Accu-Cheks noted 160-170 612 Shows a long segment bowel wall thickening of the transverse colon and desc ending colon extending into the Assessment: -Acute severe colitis affecting the transfers descending colon:, Could be ischemic versus inflammatory -Diabetes mellitus type 2, chronically on insulin pump -Fibromyalgia -GERD -Essential hypertension -Primary osteoarthritis -Hypothyroid -Irritable bowel syndrome -Depression not otherwise specified Plan: Patient started on IV Zosyn. Home medications are resumed. GI was consulted. Care was discussed with the patient. We will try clear liquids. Lovenox for DVT prophylaxis. Patient using her insulin pump. Has been on basal insulin. Past Medical History Past Medical History: Diabetes Mellitus, Fibromyalgia, GERD/Reflux, Hypertension, Osteoarthritis (OA), Thyroid Disorder Additional Past Medical History / Comment(s): Hypothyroidism, DDD, IBS, insomnia History of Any Multi-Drug Resistant Organisms: None Reported Past Surgical History: Back Surgery, Breast Surgery, Section, Cholecystectomy, Orthopedic Surgery, Tonsillectomy Additional Past Surgical History / Comment(s): Left breast lumpectomy 2012, partial thyroidectomy, spinal fusion L3-L4 11/2014, C section x 3, Left knee replaced 2010, multiple D&C's, cataract surgery bilaterally, repair of a macular hole right eye Past Anesthesia/Blood Transfusion Reactions: Postoperative Nausea & Vomiting (PONV) Smoking Status: Never smoker - Past Family History Father Family Medical History: Coronary Artery Disease (CAD) Mother Family Medical History: Coronary Artery Disease (CAD) Medications and Allergies Home Medications Medication Instructions Recorded Confirmed Type Aspirin EC [Ecotrin Low Dose] 81 mg PO DAILY 11/10/16 03/12/19 History Atenolol 100 mg PO DAILY 11/10/16 03/12/19 History Cholecalciferol [Vitamin D3] 2,000 unit PO DAILY 11/10/16 03/12/19 History Cyanocobalamin [Vitamin B-12] 1,000 mcg PO DAILY 11/10/16 03/12/19 History DULoxetine HCL [Cymbalta] 60 mg PO DAILY 11/10/16 03/12/19 History Dicyclomine [Bentyl] 20 mg PO QID 11/10/16 03/12/19 History Ergocalciferol (Vitamin D2) 50,000 units PO FR 11/10/16 03/12/19 History [Drisdol] Fenofibrate Nanocrystallized 48 mg PO DAILY 11/10/16 03/12/19 History [Fenofibrate] Gabapentin [Neurontin] 300 mg PO TID 11/10/16 03/12/19 History INSULIN LISPRO (For Pump) [humaLOG 0.01 units SQ-PUMP CONTINUOUS 11/10/16 03/12/19 History (For Pump)] Lansoprazole [Prevacid] 30 mg PO DAILY 11/10/16 03/12/19 History Levothyroxine Sodium [Synthroid] 100 mcg PO DAILY 11/10/16 03/12/19 History Lisinopril [Zestril] 20 mg PO DAILY 11/10/16 03/12/19 History Nortriptyline HCl [Pamelor] 75 mg PO DAILY 11/10/16 03/12/19 History Pioglitazone HCl [Actos] 30 mg PO DAILY 11/10/16 03/12/19 History Ubidecarenone [Co Q-10] 200 mg PO DAILY 11/10/16 03/12/19 History Zolpidem [Ambien] 10 mg PO HS PRN 11/10/16 03/12/19 History metFORMIN HCL 1,000 mg PO BID 11/10/16 03/12/19 History Acetaminophen Tab [Tylenol Tab] 650 mg PO Q6H PRN 03/12/19 03/12/19 History Ascorbic Acid [Vitamin C] 500 mg PO BID 03/12/19 03/12/19 History Melatonin 5 mg PO HS 03/12/19 03/12/19 History Meloxicam [Mobic] 15 mg PO DAILY 03/12/19 03/12/19 History Simvastatin [Zocor] 20 mg PO HS 03/12/19 03/12/19 History amLODIPine [Norvasc] 2.5 mg PO TID 03/12/19 03/12/19 History Allergies Allergy/AdvReac Type Severity Reaction Status Date / Time celecoxib [From Celebrex] Allergy Rash/Hives Verified 03/12/19 14:03 colistin Allergy Unknown Verified 03/12/19 14:03 [From Cortisporin-TC] hydrocortisone Allergy Unknown Verified 03/12/19 14:03 [From Cortisporin-TC] neomycin Allergy Unknown Verified 03/12/19 14:03 [From Cortisporin-TC] terconazole [From Terazol 3] Allergy Unknown Verified 03/12/19 14:03 thonzonium bromide Allergy Unknown Verified 03/12/19 14:03 [From Cortisporin-TC] adhesive tape AdvReac Nausea Verified 03/12/19 14:03 Physical Exam Vitals: Vital Signs Temp Pulse Pulse Resp BP BP Pulse Ox 03/13/19 04:21 99.6 F 92 16 141/57 87 L 03/13/19 00:30 18 03/12/19 22:55 98.0 F 03/12/19 21:00 101 F H 76 18 165/81 90 L 03/12/19 18:01 99 F 77 16 142/67 96 03/12/19 17:32 98.5 F 75 18 165/71 96 03/12/19 16:21 70 18 144/93 96 03/12/19 15:17 70 18 136/66 98 03/12/19 13:32 98.2 F 68 16 105/61 96 Intake and Output 03/12/19 03/13/19 03/13/19 22:59 06:59 14:59 Intake Total 600 Balance 600 Intake: Intake, IV Titration 600 Amount Sodium Chloride 0.9% 1, 600 000 ml @ 75 mls/hr IV . [id number] ONE Rx#:[id number] Other: Voiding Method Toilet # Voids 1 # Bowel Movements 1 Results CBC & Chem 7: 03/13/19 10:44 03/12/19 14:27 Labs: Abnormal Lab Results - Last 24 Hours (Table) 03/12/19 03/12/19 03/12/19 Range/Units 14:27 14:27 18:05 WBC 12.3 H (3.8-10.6) k/uL Plt Count (150-450) k/uL Neutrophils # 10.3 H (1.3-7.7) k/uL Sodium 136 L (137-145) mmol/L Glucose 185 H (74-99) mg/dL POC Glucose (mg/dL) 162 H (75-99) mg/dL Total Protein 6.1 L (6.3-8.2) g/dL 03/12/19 03/13/19 03/13/19 Range/Units 20:11 02:15 08:18 WBC 11.1 H (3.8-10.6) k/uL Plt Count 142 L (150-450) k/uL Neutrophils # 9.1 H (1.3-7.7) k/uL Sodium (137-145) mmol/L Glucose (74-99) mg/dL POC Glucose (mg/dL) 176 H 152 H (75-99) mg/dL Total Protein (6.3-8.2) g/dL 03/13/19 Range/Units 08:21 WBC (3.8-10.6) k/uL Plt Count (150-450) k/uL Neutrophils # (1.3-7.7) k/uL Sodium (137-145) mmol/L Glucose (74-99) mg/dL POC Glucose (mg/dL) 153 H (75-99) mg/dL Total Protein (6.3-8.2) g/dL Thrombosis Risk Factor Assmnt - Choose All That Apply Any of the Below Risk Factors Present?: Yes Each Factor Represents 1 point: Obesity (BMI >25), Varicose veins Each Risk Factor Represents 2 Points: Age 61-74 years Thrombosis Risk Factor Assessment Total Risk Factor Score: 4 Thrombosis Risk Factor Assessment Level: Moderate Risk
[2019-03-13] MEDS ORDERED: ENOXAPARIN 40 MG/0.4 ML SYRINGE SQ SCH (20:30)
[2019-03-13] MEDS: ATORVASTATIN 10 MG TAB PO SCH (21:02)
[2019-03-13] MEDS: ZOLPIDEM 10 MG TAB PO PRN (21:02)
[2019-03-13] MEDS: MELATONIN 5 MG TABLET PO SCH (21:02)
[2019-03-14 03:47] LABS: Glucose,Whole Blood 106 mg/dL (75-99)
[2019-03-14] MEDS: PIPERACILLIN-TAZOBACTAM 3.375 GM in SODIUM CHLORIDE 0.9% 100 ML IVPB SCH ×4 (05:31→23:55)
[2019-03-14] MEDS: LEVOTHYROXINE 100 MCG TAB PO SCH (05:57)
[2019-03-14 06:56] LABS: Glucose,Whole Blood 110 mg/dL (75-99)
[2019-03-14 08:02] LABS: Basophils % (A) 0 %; Eosinophils % (A) 0 %; HCT 36.6 % (34.0-46.0); HGB 11.5 gm/dL (11.4-16.0); Hypochromasia Slight; Lymphocytes # (A) 1.2 k/uL (1.0-4.8); Lymphocytes % (A) 14 %; MCHC 31.4 g/dL (31.0-37.0); MCV 86.1 fL (80.0-100.0); Mean Platelet Volume 9.1; Monocytes # (A) 0.6 k/uL (0-1.0); Monocytes % (A) 6 %; Neutrophils # (A) 6.9 k/uL (1.3-7.7); Neutrophils % (A) 78 %; Platelet Count 140 k/uL (150-450); RBC 4.26 m/uL (3.80-5.40); RDW 13.9 % (11.5-15.5); WBC 8.9 k/uL (3.8-10.6)
[2019-03-14 08:17] LABS: African American GFR (CKD) >90 (>60 ml/min/1.73 sqM); Anion Gap 10 mmol/L; Blood Urea Nitrogen 12 mg/dL (7-17); Calcium 8.5 mg/dL (8.4-10.2); Carbon Dioxide 22 mmol/L (22-30); Chloride 106 mmol/L (98-107); Glucose 110 mg/dL (74-99); Potassium 3.8 mmol/L (3.5-5.1); Sodium 138 mmol/L (137-145)
[2019-03-14] MEDS: ASPIRIN 81 MG PO SCH (09:48)
[2019-03-14] MEDS: MELOXICAM 7.5 MG TAB PO SCH (10:02)
[2019-03-14] MEDS: DICYCLOMINE 20 MG TAB PO SCH ×4 (10:09→21:54)
[2019-03-14] MEDS: CHOLECALCIFEROL 1,000 UNIT TAB PO SCH (10:10)
[2019-03-14] MEDS: GABAPENTIN 300 MG CAP PO SCH ×3 (10:10→21:54)
[2019-03-14] MEDS: FENOFIBRATE 54 MG TAB PO SCH (10:10)
[2019-03-14] MEDS: LISINOPRIL 20 MG TAB PO SCH (10:10)
[2019-03-14] MEDS: DULoxetine HCL 60 MG CAPSULE.DR PO SCH (10:10)
[2019-03-14] MEDS: PIOGLITAZONE 30 MG TAB PO SCH (10:11)
[2019-03-14] MEDS: PANTOPRAZOLE 40 MG TABLET PO SCH (10:11)
[2019-03-14] MEDS: NORTRIPTYLINE 25 MG CAP PO SCH (10:11)
[2019-03-14] MEDS: CYANOCOBALAMIN 500 MCG TAB PO SCH (10:11)
[2019-03-14] MEDS: amLODIPine 2.5 MG TAB PO SCH ×3 (10:12→21:54)
[2019-03-14] MEDS: ASCORBIC ACID 500 MG TAB PO SCH ×2 (10:12→21:52)
[2019-03-14] MEDS: ATENOLOL 50 MG TAB PO SCH (10:12)
--- NOTE | 2019-03-14 10:55 | P.PN ---
Subjective Progress Note Date: 03/14/19 Principal diagnosis: GI bleed abdominal pain Rectal bleeding subsiding bowel movement frequency improving. Abdominal pain improved. Afebrile. CT abdomen acute on, K long segment transverse descending proximal sigmoid acute colitis. White count 8.9. Hemoglobin 11.5. Stool cu lture pending. C. diff negative. Objective - Vital Signs Vital signs: Vital Signs Temp 97.6 F 03/14/19 04:44 Pulse 71 03/14/19 04:44 Resp 18 03/14/19 04:44 BP 122/72 03/14/19 04:44 Pulse Ox 90 L 03/14/19 04:44 Intake & Output 03/13/19 03/14/19 03/14/19 18:59 06:59 18:59 Intake Total 600 100 Balance 600 100 Intake: Intake, IV Titration 600 100 Amount Piperacillin-Tazobactam 3 100 .375 gm In Sodium Chloride 0.9% 100 ml @ 25 mls/hr IVPB Q8HR [facility] Rx# :[id number] Sodium Chloride 0.9% 1, 600 000 ml @ 75 mls/hr IV . [id number] ONE Rx#:[id number] Other: Voiding Method Toilet # Voids 2 2 # Bowel Movements 4 - Exam General appearance: The patient is alert, oriented, in no acute distress. HET: Head is normocephalic and atraumatic. Pupils are equal and reactive. Oropharynx is clear without lesions. Neck: Supple without lymphadenopathy. Trachea midline. Heart: S1 S2. Regular rate and rhythm. Lungs: No crackles or wheezes are heard. Congested cough. Scattered rhonchi. Abdomen: Soft, mildly tender across mid abdomen nondistended with bowel sounds. No peritoneal signs. No palpable organomegaly or masses. Extremities: Normal skin color and turgor. No cyanosis, rash, ulceration, clubbing, or edema. Radial and pedal pulses are 2/4 bilaterally. Neurological: No focal deficits. Strength and sensation are grossly intact. - Labs CBC & Chem 7: 03/14/19 07:20 03/14/19 07:20 Labs: Abnormal Lab Results - Last 24 Hours (Table) 03/13/19 03/13/19 03/13/19 Range/Units 10:44 11:49 13:50 Plt Count 132 L (150-450) k/uL Neutrophils # 8.0 H (1.3-7.7) k/uL Lymphocytes # 0.8 L (1.0-4.8) k/uL Creatinine (0.52-1.04) mg/dL Glucose (74-99) mg/dL POC Glucose (mg/dL) 173 H (75-99) mg/dL Stool Lactoferrin POSITIVE H (NEGATIVE) 03/13/19 03/13/19 03/14/19 Range/Units 16:42 20:10 01:41 Plt Count (150-450) k/uL Neutrophils # (1.3-7.7) k/uL Lymphocytes # (1.0-4.8) k/uL Creatinine (0.52-1.04) mg/dL Glucose (74-99) mg/dL POC Glucose (mg/dL) 225 H 157 H 106 H (75-99) mg/dL Stool Lactoferrin (NEGATIVE) 03/14/19 03/14/19 03/14/19 Range/Units 06:55 07:20 07:20 Plt Count 140 L (150-450) k/uL Neutrophils # (1.3-7.7) k/uL Lymphocytes # (1.0-4.8) k/uL Creatinine 0.42 L (0.52-1.04) mg/dL Glucose 110 H (74-99) mg/dL POC Glucose (mg/dL) 110 H (75-99) mg/dL Stool Lactoferrin (NEGATIVE) Microbiology - Last 24 Hours (Table) 03/13/19 13:50 Stool Culture - Preliminary Stool Assessment and Plan (1) Rectal bleeding Narrative/Plan: 68-year-old female admitted with diffuse lower abdominal pain fever with bright red blood bowel movements possible acute ischemic colitis possible inflammatory colitis possible infectious colitis. CT reported long segment of uncomplicated colitis. Current Visit: Yes Status: Acute Code(s): K62.5 - HEMORRHAGE OF ANUS AND RECTUM SNOMED Code(s): 65368854 Plan: 1. Continue Zosyn 3.375 g every 8 hours. Will check CRP. Clear liquids with protein shakes. CBC BMP daily. Outpatient colonoscopy advised. GI prophylaxis. Assessment and plan a care discussed with Dr. Lilly
[2019-03-14 11:19] LABS: Glucose,Whole Blood 145 mg/dL (75-99)
[2019-03-14] MEDS: INSULIN PUMP MEAL BOLUS 1 UNIT MISC MISCELLANE SCH ×4 (11:32→22:03)
[2019-03-14] MEDS: ALBUTEROL NEBULIZED 2.5 MG/3 ML INHALATION SCH ×3 (11:33→20:09)
[2019-03-14] MEDS: LORATADINE-PSEUDOEPH 5-120 MG 1 EACH TAB.ER.12H PO SCH ×2 (12:53→21:54)
[2019-03-14] MEDS: ACETAMINOPHEN TAB 325 MG TAB PO PRN ×2 (12:54→22:01)
[2019-03-14 17:09] LABS: Glucose,Whole Blood 93 mg/dL (75-99)
--- NOTE | 2019-03-14 20:07 | P.PN ---
Progress Note - Text Progress Note Date: 03/14/19 Chief Complaint: bleeding per rectum History of presenting complaint: This is a pleasant [address] Bryant. Chronic stable medical conditions include diabetes, fibromyalgia, GERD, hypertension, osteoarthritis, hypothyroid, irritable bowel syndrome, depression. Patient with 2 days. Having bright red blood per rectum intermittent and variable amount. Also having increasing diffuse abdominal pain no nausea vomiting low-grade fever and rundown admitted for the same. Abdominal pain is generalized no radiation. Admitted with acute colitis. Today-laying in bed. On clear liquids. Minimal flatus. Abdominal pain is better. No fever or chills. No nausea vomiting. Review of systems: Was done for constitutional, cardiovascular, GI, pulmonary. relevant finding as above Physical examination: VITAL SIGNS: 97.3, 64, 17, 1 36 x 63, 90% room air GENERAL: , laying in bed uncomfortable. EYES: Pupils equal. Conjunctiva normal. HEENT: External appearance of nose and ears normal, oral cavity grossly normal. NECK: JVD not raised; masses not palpable. HEART: First and second heart sounds are normal; no edema. LUNGS: Respiratory rate normal; clear to auscultation. ABDOMEN: Soft, decreased tenderness, no guarding or rigidity, liver spleen not palpable, no masses palpable. LYMPHATICS: No lymph nodes palpable in the axilla and neck. PSYCH: Alert and oriented x3; mood and affect anxiousl. NEUROLOGICAL: Cranial nerves grossly intact; no facial asymmetry, power and sensation grossly intact. Investigations, reviewed and the clinical context White count 8.9, hemoglobin 11.5, potassium 3.8, creatinine 0.4 to Assessment: -Acute severe colitis affecting the transfers descending colon:, Could be ischemic versus inflammatory, with some clinic respond -Diabetes mellitus type 2, chronically on insulin pump -Fibromyalgia -GERD -Essential hypertension -Primary osteoarthritis -Hypothyroid -Irritable bowel syndrome -Depression not otherwise specified Plan: Some improvement from yesterday. Getting IV Zosyn. IV fluids. Tolerating clear liquids. Care was discussed with the patient. Encouraged out of bed.
[2019-03-14 20:18] LABS: Glucose,Whole Blood 177 mg/dL (75-99)
[2019-03-14] MEDS: ATORVASTATIN 10 MG TAB PO SCH (21:52)
[2019-03-14] MEDS: MELATONIN 5 MG TABLET PO SCH (21:53)
[2019-03-14] MEDS: ZOLPIDEM 10 MG TAB PO PRN (22:01)
[2019-03-15 02:47] LABS: Glucose,Whole Blood 104 mg/dL (75-99)
[2019-03-15] MEDS: LEVOTHYROXINE 100 MCG TAB PO SCH (05:55)
[2019-03-15 07:06] LABS: Glucose,Whole Blood 88 mg/dL (75-99)
[2019-03-15] MEDS: ALBUTEROL NEBULIZED 2.5 MG/3 ML INHALATION SCH ×4 (07:07→19:00)
[2019-03-15] MEDS: PANTOPRAZOLE 40 MG TABLET PO SCH (07:30)
[2019-03-15] MEDS: PIOGLITAZONE 30 MG TAB PO SCH (07:30)
[2019-03-15] MEDS: amLODIPine 2.5 MG TAB PO SCH ×3 (07:30→21:02)
[2019-03-15] MEDS: FENOFIBRATE 54 MG TAB PO SCH (07:31)
[2019-03-15] MEDS: LISINOPRIL 20 MG TAB PO SCH (07:31)
[2019-03-15] MEDS: DULoxetine HCL 60 MG CAPSULE.DR PO SCH (07:31)
[2019-03-15] MEDS: DICYCLOMINE 20 MG TAB PO SCH ×4 (07:31→21:02)
[2019-03-15] MEDS: NORTRIPTYLINE 25 MG CAP PO SCH (07:31)
[2019-03-15] MEDS: ATENOLOL 50 MG TAB PO SCH (07:31)
[2019-03-15] MEDS: LORATADINE-PSEUDOEPH 5-120 MG 1 EACH TAB.ER.12H PO SCH ×2 (07:31→21:01)
[2019-03-15] MEDS: GABAPENTIN 300 MG CAP PO SCH ×3 (07:31→21:02)
[2019-03-15] MEDS: CYANOCOBALAMIN 500 MCG TAB PO SCH (07:32)
[2019-03-15] MEDS: ASPIRIN 81 MG PO SCH (07:32)
[2019-03-15] MEDS: CHOLECALCIFEROL 1,000 UNIT TAB PO SCH (07:32)
[2019-03-15] MEDS: ASCORBIC ACID 500 MG TAB PO SCH ×2 (07:33→21:01)
[2019-03-15] MEDS: MELOXICAM 7.5 MG TAB PO SCH (07:33)
[2019-03-15] MEDS: INSULIN PUMP MEAL BOLUS 1 UNIT MISC MISCELLANE SCH ×4 (07:38→21:03)
[2019-03-15] MEDS: PIPERACILLIN-TAZOBACTAM 3.375 GM in SODIUM CHLORIDE 0.9% 100 ML IVPB SCH ×3 (07:39→23:07)
[2019-03-15 10:09] LABS: Basophils % (A) 0 %; Eosinophils # (A) 0.1 k/uL (0-0.7); Eosinophils % (A) 1 %; HCT 37.6 % (34.0-46.0); HGB 11.5 gm/dL (11.4-16.0); Lymphocytes % (A) 11 %; MCH 26.5 pg (25.0-35.0); MCHC 30.5 g/dL (31.0-37.0); Mean Platelet Volume 8.3; Monocytes # (A) 0.7 k/uL (0-1.0); Monocytes % (A) 7 %; Neutrophils # (A) 7.1 k/uL (1.3-7.7); Neutrophils % (A) 79 %; Platelet Count 190 k/uL (150-450); RBC 4.32 m/uL (3.80-5.40); RDW 13.3 % (11.5-15.5)
[2019-03-15 10:22] LABS: African American GFR (CKD) >90 (>60 ml/min/1.73 sqM); Anion Gap 11 mmol/L; Blood Urea Nitrogen 10 mg/dL (7-17); Calcium 8.3 mg/dL (8.4-10.2); Carbon Dioxide 24 mmol/L (22-30); Chloride 103 mmol/L (98-107); Glucose 128 mg/dL (74-99); Potassium 3.4 mmol/L (3.5-5.1); Sodium 138 mmol/L (137-145)
[2019-03-15 11:16] LABS: Glucose,Whole Blood 208 mg/dL (75-99)
--- NOTE | 2019-03-15 12:34 | P.PN ---
Subjective Progress Note Date: 03/15/19 Principal diagnosis: GI bleed abdominal pain Large bowel movement this morning with maroon colored blood. C-reactive protein elevated 348. CRP today pending. Abdominal pain slightly improved. Afebrile. CT abdomen reported long segment transverse descending proximal sigmoid acute colitis. Afebrile. White count 9.0.. Hemoglobin 11.5. Stool culture pending. C. diff negative. Objective - Vital Signs Vital signs: Vital Signs Temp 98.5 F 03/15/19 11:39 Pulse 70 03/15/19 11:39 Resp 16 03/15/19 11:39 BP 137/63 03/15/19 11:39 Pulse Ox 89 L 03/15/19 11:39 Intake & Output 03/14/19 03/15/19 03/15/19 18:59 06:59 18:59 Intake Total 240 Balance 240 Intake: Oral 240 Other: Voiding Method Toilet Toilet Toilet # Voids 4 2 - Exam General appearance: The patient is alert, oriented, in no acute distress. HET: Head is normocephalic and atraumatic. Pupils are equal and reactive. Oropharynx is clear without lesions. Neck: Supple without lymphadenopathy. Trachea midline. Heart: S1 S2. Regular rate and rhythm. Lungs: No crackles or wheezes are heard. Congested cough. Scattered rhonchi. Abdomen: Soft, mildly tender across mid abdomen nondistended with bowel sounds. No peritoneal signs. No palpable organomegaly or masses. Extremities: Normal skin color and turgor. No cyanosis, rash, ulceration, clubbing, or edema. Radial and pedal pulses are 2/4 bilaterally. Neurological: No focal deficits. Strength and sensation are grossly intact. - Labs CBC & Chem 7: 03/15/19 08:34 03/15/19 08:34 Labs: Abnormal Lab Results - Last 24 Hours (Table) 03/14/19 03/14/19 03/15/19 Range/Units 11:00 20:16 02:45 MCHC (31.0-37.0) g/dL Potassium (3.5-5.1) mmol/L Creatinine (0.52-1.04) mg/dL Glucose (74-99) mg/dL POC Glucose (mg/dL) 177 H 104 H (75-99) mg/dL Calcium (8.4-10.2) mg/dL C-Reactive Protein 348.1 H (<10.0) mg/L 03/15/19 03/15/19 03/15/19 Range/Units 08:34 08:34 11:15 MCHC 30.5 L (31.0-37.0) g/dL Potassium 3.4 L (3.5-5.1) mmol/L Creatinine 0.42 L (0.52-1.04) mg/dL Glucose 128 H (74-99) mg/dL POC Glucose (mg/dL) 208 H (75-99) mg/dL Calcium 8.3 L (8.4-10.2) mg/dL C-Reactive Protein (<10.0) mg/L Microbiology - Last 24 Hours (Table) 03/13/19 13:09 Blood Culture - Preliminary Blood No Growth after 24 hours Assessment and Plan (1) Rectal bleeding Narrative/Plan: 68-year-old female admitted with diffuse lower abdominal pain fever with bright red blood bowel movements possible acute ischemic colitis possible inflammatory colitis possible infectious colitis. CT reported long segment of uncomplicated colitis. Current Visit: Yes Status: Acute Code(s): K62.5 - HEMORRHAGE OF ANUS AND RECTUM SNOMED Code(s): 61670590 (2) CRP elevated Current Visit: Yes Status: Acute Code(s): R79.82 - ELEVATED C-REACTIVE PROTEIN (CRP) SNOMED Code(s): 668887339723006 Plan: 1. Clinically patient has a soft abdomen minimal tenderness over all her dis position appears to be improved since admission. Patient reports passing a large blood tinged bowel movement this morning. Continue Zosyn 3.375 g every 8 hours. Lactic acid. Will check CRP daily. General surgical consult. IV Solu- Medrol 20 mg every 8 hours. Clear liquids with protein shakes. CBC BMP daily. Inpatient colonoscopy discussed will be determined based on clinical course. GI prophylaxis. Assessment and plan a care discussed with Dr. Lilly
[2019-03-15] MEDS ORDERED: methylPREDNISolone SOD SUCCI 125 MG/2 ML VIAL IV SCH (12:45)
[2019-03-15] MEDS: methylPREDNISolone SOD SUCCI 40 MG/ML 1 ML VIAL IV SCH ×2 (13:37→23:08)
--- NOTE | 2019-03-15 16:00 | P.GSCN ---
<Deanna Roland - Last Filed: 03/15/19 15:49> History of Present Illness Consult date: 03/15/19 Reason for Consult: Rectal bleeding Requesting physician: Kalli Waterman History of present illness: CHIEF COMPLAINT: Rectal bleeding elevated CRP possible ischemic versus inflammatory colitis HISTORY OF PRESENT ILLNESS: 68-year-old female who presented to the emergency room on 03/12/2018 with abdominal pain and multiple bright red bloody stools. General surgery was consulted for further evaluation. Patient examined at the bedside this afternoon. She reports her abdominal pain is almost completely resolved. She denies nausea or vomiting. She is tolerating clear liquid diet. She reports passing bright red blood in her stools today. Patient denies previous history of rectal bleeding or colitis. Patient reports last colonoscopy was greater than 10 years ago. PAST MEDICAL HISTORY: See list. PAST SURGICAL HISTORY: See list. MEDICATIONS: See list. ALLERGIES: See list. SOCIAL HISTORY: No illicit drug use. REVIEW OF SYSTEMS: CONSTITUTIONAL: Denies fever or chills. HEENT: Denies blurred vision, vision changes, or eye pain. Denies hemoptysis ENDOCRINE: Denies heat or cold intolerance. CARDIOVASCULAR: Denies chest pain or pressure. RESPIRATORY: No shortness of breath. GASTROINTESTINAL: Reports bright red blood per rectum. Denies abdominal pain currently. Denies nausea or vomiting. NEURO: Denies history of seizures. PSYCH: No depression or suicidal ideation HEMATOLOGIC: Denies bleeding disorders. LYMPHATIC: The patient denies any lumps and bumps around the neck. GENITOURINARY: Denies any blood in urine or increased urinary frequency. MUSCULOSKELETAL: Denies myalgias. Denies joint swelling. Denies decreased range of motion beyond patients baseline. SKIN: Denies pruitis. Denies rash. PHYSICAL EXAM: VITAL SIGNS: Currently stable. GENERAL: Well-developed in no acute distress. HEENT: No sclera icterus. Extraocular movements grossly intact. Moist buccal mucosa. Head is atraumatic, normocephalic. Hears conversational speech. No nasal drainage. NECK: Supple without lymphadenopathy. CHEST: Non-labored respirations and equal bilateral excursions. CARDIOVASCULAR: Regular rate with regular rhythm. Palpable 2+ radial pulses. ABDOMEN: Soft. Nondistended. Nontender. Positive bowel sounds. MUSCULOSKELETAL: No clubbing, cyanosis or edema. NEUROLOGIC: No focal or lateralizing signs. Cranial nerves II through XII grossly intact. PSYCH: Appropriate affect. Alert and oriented to person, place and time. SKIN: Well perfused. Good skin turgor. LABORATORY DATA: -Laboratory data from this morning reveals white count 9.0. Hemoglobin 11.5. Sodium 138. Potassium 3.4. BUN 10. Creatinine 0.42. C-reactive protein 206.7. -C. diff negative -Stool cultures pending -Blood cultures negative at [address] abdomen and pelvis: Acute uncomplicated long segment transverse, descending, and proximal sigmoid acute colitis. ASSESSMENT: 1. Abdominal pain 2. Bright red blood per rectum 3. Acute colitis 4. Elevated CRP PLAN: 1. Clear liquid diet as tolerated 2. Monitor labs 3. IV steroids per GI service 4. Continue antibiotics 5. Will defer any endoscopic studies to GI service 6. No surgical intervention recommended at this time Nurse practitioner note has been reviewed by physician. Signing provider agrees with the documented findings, assessment, and plan of care. Past Medical History Past Medical History: Diabetes Mellitus, Fibromyalgia, GERD/Reflux, Hypertension, Osteoarthritis (OA), Thyroid Disorder Additional Past Medical History / Comment(s): Hypothyroidism, DDD, IBS, insomnia History of Any Multi-Drug Resistant Organisms: None Reported Past Surgical History: Back Surgery, Breast Surgery, Section, Cholecystectomy, Orthopedic Surgery, Tonsillectomy Additional Past Surgical History / Comment(s): Left breast lumpectomy 2012, partial thyroidectomy, spinal fusion L3-L4 11/2014, C section x 3, Left knee replaced 2010, multiple D&C's, cataract surgery bilaterally, repair of a macular hole right eye Past Anesthesia/Blood Transfusion Reactions: Postoperative Nausea & Vomiting (PONV) Smoking Status: Never smoker - Past Family History Father Family Medical History: Coronary Artery Disease (CAD) Mother Family Medical History: Coronary Artery Disease (CAD) Medications and Allergies Home Medications Medication Instructions Recorded Confirmed Type Aspirin EC [Ecotrin Low Dose] 81 mg PO DAILY 11/10/16 03/12/19 History Atenolol 100 mg PO DAILY 11/10/16 03/12/19 History Cholecalciferol [Vitamin D3] 2,000 unit PO DAILY 11/10/16 03/12/19 History Cyanocobalamin [Vitamin B-12] 1,000 mcg PO DAILY 11/10/16 03/12/19 History DULoxetine HCL [Cymbalta] 60 mg PO DAILY 11/10/16 03/12/19 History Dicyclomine [Bentyl] 20 mg PO QID 11/10/16 03/12/19 History Ergocalciferol (Vitamin D2) 50,000 units PO FR 11/10/16 03/12/19 History [Drisdol] Fenofibrate Nanocrystallized 48 mg PO DAILY 11/10/16 03/12/19 History [Fenofibrate] Gabapentin [Neurontin] 300 mg PO TID 11/10/16 03/12/19 History INSULIN LISPRO (For Pump) [humaLOG 0.01 units SQ-PUMP CONTINUOUS 11/10/16 03/12/19 History (For Pump)] Lansoprazole [Prevacid] 30 mg PO DAILY 11/10/16 03/12/19 History Levothyroxine Sodium [Synthroid] 100 mcg PO DAILY 11/10/16 03/12/19 History Lisinopril [Zestril] 20 mg PO DAILY 11/10/16 03/12/19 History Nortriptyline HCl [Pamelor] 75 mg PO DAILY 11/10/16 03/12/19 History Pioglitazone HCl [Actos] 30 mg PO DAILY 11/10/16 03/12/19 History Ubidecarenone [Co Q-10] 200 mg PO DAILY 11/10/16 03/12/19 History Zolpidem [Ambien] 10 mg PO HS PRN 11/10/16 03/12/19 History metFORMIN HCL 1,000 mg PO BID 11/10/16 03/12/19 History Acetaminophen Tab [Tylenol Tab] 650 mg PO Q6H PRN 03/12/19 03/12/19 History Ascorbic Acid [Vitamin C] 500 mg PO BID 03/12/19 03/12/19 History Melatonin 5 mg PO HS 03/12/19 03/12/19 History Meloxicam [Mobic] 15 mg PO DAILY 03/12/19 03/12/19 History Simvastatin [Zocor] 20 mg PO HS 03/12/19 03/12/19 History amLODIPine [Norvasc] 2.5 mg PO TID 03/12/19 03/12/19 History Allergies Allergy/AdvReac Type Severity Reaction Status Date / Time celecoxib [From Celebrex] Allergy Rash/Hives Verified 03/12/19 14:03 colistin Allergy Unknown Verified 03/12/19 14:03 [From Cortisporin-TC] hydrocortisone Allergy Unknown Verified 03/12/19 14:03 [From Cortisporin-TC] neomycin Allergy Unknown Verified 03/12/19 14:03 [From Cortisporin-TC] terconazole [From Terazol 3] Allergy Unknown Verified 03/12/19 14:03 thonzonium bromide Allergy Unknown Verified 03/12/19 14:03 [From Cortisporin-TC] adhesive tape AdvReac Nausea Verified 03/12/19 14:03 Surgical - Exam Vital Signs Temp Pulse Resp BP Pulse Ox 98.2 F 68 16 105/61 96 03/12/19 13:32 03/12/19 13:32 03/12/19 13:32 03/12/19 13:32 03/12/19 13:32 Results - Labs 03/15/19 08:34 03/15/19 08:34 Abnormal Lab Results - Last 24 Hours (Table) 03/14/19 03/14/19 03/15/19 Range/Units 11:00 20:16 02:45 MCHC (31.0-37.0) g/dL Potassium (3.5-5.1) mmol/L Creatinine (0.52-1.04) mg/dL Glucose (74-99) mg/dL POC Glucose (mg/dL) 177 H 104 H (75-99) mg/dL Calcium (8.4-10.2) mg/dL C-Reactive Protein 348.1 H (<10.0) mg/L 03/15/19 03/15/19 03/15/19 Range/Units 08:34 08:34 11:15 MCHC 30.5 L (31.0-37.0) g/dL Potassium 3.4 L (3.5-5.1) mmol/L Creatinine 0.42 L (0.52-1.04) mg/dL Glucose 128 H (74-99) mg/dL POC Glucose (mg/dL) 208 H (75-99) mg/dL Calcium 8.3 L (8.4-10.2) mg/dL C-Reactive Protein (<10.0) mg/L 03/15/19 Range/Units 13:50 MCHC (31.0-37.0) g/dL Potassium (3.5-5.1) mmol/L Creatinine (0.52-1.04) mg/dL Glucose (74-99) mg/dL POC Glucose (mg/dL) (75-99) mg/dL Calcium (8.4-10.2) mg/dL C-Reactive Protein 206.7 H (<10.0) mg/L Microbiology - Last 24 Hours (Table) 03/13/19 13:09 Blood Culture - Preliminary Blood No Growth after 48 hours Diabetes panel 03/15/19 Range/Units 08:34 Sodium 138 (137-145) mmol/L Potassium 3.4 L (3.5-5.1) mmol/L Chloride 103 (98-107) mmol/L Carbon Dioxide 24 (22-30) mmol/L BUN 10 (7-17) mg/dL Creatinine 0.42 L (0.52-1.04) mg/dL Glucose 128 H (74-99) mg/dL Calcium 8.3 L (8.4-10.2) mg/dL Calcium panel 03/15/19 Range/Units 08:34 Calcium 8.3 L (8.4-10.2) mg/dL Pituitary panel 03/15/19 Range/Units 08:34 Sodium 138 (137-145) mmol/L Potassium 3.4 L (3.5-5.1) mmol/L Chloride 103 (98-107) mmol/L Carbon Dioxide 24 (22-30) mmol/L BUN 10 (7-17) mg/dL Creatinine 0.42 L (0.52-1.04) mg/dL Glucose 128 H (74-99) mg/dL Calcium 8.3 L (8.4-10.2) mg/dL Adrenal panel 03/15/19 Range/Units 08:34 Sodium 138 (137-145) mmol/L Potassium 3.4 L (3.5-5.1) mmol/L Chloride 103 (98-107) mmol/L Carbon Dioxide 24 (22-30) mmol/L BUN 10 (7-17) mg/dL Creatinine 0.42 L (0.52-1.04) mg/dL Glucose 128 H (74-99) mg/dL Calcium 8.3 L (8.4-10.2) mg/dL <Rut Currie N - Last Filed: 03/15/19 20:22> History of Present Illness History of present illness: Abdominal pain has improved. Agreeable with liquid diet. No urgent surgical intervention needed at this time. Conservative and expectant management with GI recommendations. Surgical - Exam Vital Signs Temp Pulse Resp BP Pulse Ox 98.2 F 68 16 105/61 96 03/12/19 13:32 03/12/19 13:32 03/12/19 13:32 03/12/19 13:32 03/12/19 13:32 Results - Labs 03/15/19 08:34 03/15/19 08:34 Abnormal Lab Results - Last 24 Hours (Table) 03/14/19 03/15/19 03/15/19 Range/Units 11:00 02:45 08:34 MCHC (31.0-37.0) g/dL Potassium 3.4 L (3.5-5.1) mmol/L Creatinine 0.42 L (0.52-1.04) mg/dL Glucose 128 H (74-99) mg/dL POC Glucose (mg/dL) 104 H (75-99) mg/dL Calcium 8.3 L (8.4-10.2) mg/dL C-Reactive Protein 348.1 H (<10.0) mg/L 03/15/19 03/15/19 03/15/19 Range/Units 08:34 11:15 13:50 MCHC 30.5 L (31.0-37.0) g/dL Potassium (3.5-5.1) mmol/L Creatinine (0.52-1.04) mg/dL Glucose (74-99) mg/dL POC Glucose (mg/dL) 208 H (75-99) mg/dL Calcium (8.4-10.2) mg/dL C-Reactive Protein 206.7 H (<10.0) mg/L 03/15/19 Range/Units 17:02 MCHC (31.0-37.0) g/dL Potassium (3.5-5.1) mmol/L Creatinine (0.52-1.04) mg/dL Glucose (74-99) mg/dL POC Glucose (mg/dL) 225 H (75-99) mg/dL Calcium (8.4-10.2) mg/dL C-Reactive Protein (<10.0) mg/L Microbiology - Last 24 Hours (Table) 03/13/19 13:50 Stool Culture - Preliminary Stool 03/13/19 13:09 Blood Culture - Preliminary Blood No Growth after 48 hours Diabetes panel 03/15/19 Range/Units 08:34 Sodium 138 (137-145) mmol/L Potassium 3.4 L (3.5-5.1) mmol/L Chloride 103 (98-107) mmol/L Carbon Dioxide 24 (22-30) mmol/L BUN 10 (7-17) mg/dL Creatinine 0.42 L (0.52-1.04) mg/dL Glucose 128 H (74-99) mg/dL Calcium 8.3 L (8.4-10.2) mg/dL Calcium panel 03/15/19 Range/Units 08:34 Calcium 8.3 L (8.4-10.2) mg/dL Pituitary panel 03/15/19 Range/Units 08:34 Sodium 138 (137-145) mmol/L Potassium 3.4 L (3.5-5.1) mmol/L Chloride 103 (98-107) mmol/L Carbon Dioxide 24 (22-30) mmol/L BUN 10 (7-17) mg/dL Creatinine 0.42 L (0.52-1.04) mg/dL Glucose 128 H (74-99) mg/dL Calcium 8.3 L (8.4-10.2) mg/dL Adrenal panel 03/15/19 Range/Units 08:34 Sodium 138 (137-145) mmol/L Potassium 3.4 L (3.5-5.1) mmol/L Chloride 103 (98-107) mmol/L Carbon Dioxide 24 (22-30) mmol/L BUN 10 (7-17) mg/dL Creatinine 0.42 L (0.52-1.04) mg/dL Glucose 128 H (74-99) mg/dL Calcium 8.3 L (8.4-10.2) mg/dL
[2019-03-15 17:03] LABS: Glucose,Whole Blood 225 mg/dL (75-99)
[2019-03-15] MEDS: BENZOCAINE/MENTHOL LOZENG 1 EACH LOZENGE MUCOUS MEM PRN (18:50)
[2019-03-15 20:49] LABS: Glucose,Whole Blood 283 mg/dL (75-99)
[2019-03-15] MEDS: ATORVASTATIN 10 MG TAB PO SCH (21:01)
[2019-03-15] MEDS: MELATONIN 5 MG TABLET PO SCH (21:02)
[2019-03-15] MEDS: ZOLPIDEM 10 MG TAB PO PRN (21:03)
--- NOTE | 2019-03-15 22:27 | P.PN ---
Progress Note - Text Progress Note Date: 03/15/19 Chief Complaint: bleeding per rectum History of presenting complaint: This is a pleasant [address] Bryant. Chronic stable medical conditions include diabetes, fibromyalgia, GERD, hypertension, osteoarthritis, hypothyroid, irritable bowel syndrome, depression. Patient with 2 days. Having bright red blood per rectum intermittent and variable amount. Also having increasing diffuse abdominal pain no nausea vomiting low-grade fever and rundown admitted for the same. Abdominal pain is generalized no radiation. Admitted with acute colitis. Today-laying in bed. had a bowel movement with a large bloody stool this morning. Abdominal pain is a bit better. Bit of a congested chest. As was present on admission. Patient had been advanced to full liquids this morning. Feels tired Review of systems: Was done for constitutional, cardiovascular, GI, pulmonary. relevant finding as above Current medications reviewed that included: insulin pump, IV Zosyn, IV Solu-Medrol started by GI Physical examination: VITAL SIGNS: 98.5, 70, 16, 137/63, 89% room air GENERAL: , laying in bed uncomfortable. EYES: Pupils equal. Conjunctiva normal. HEENT: External appearance of nose and ears normal, oral cavity grossly normal. NECK: JVD not raised; masses not palpable. HEART: First and second heart sounds are normal; no edema. LUNGS: Respiratory rate normal; some expiratory crackles. ABDOMEN: Soft, some tenderness, no guarding or rigidity, liver spleen not palpable, no masses palpable. PSYCH: Alert and oriented x3; mood and affect anxiousl. Investigations, reviewed and the clinical context white count 9, hemoglobin 11.5, potassium 3.4, BUN 10, creatinine 0.4 to CRP 206.7 Assessment: -Acute severe colitis affecting thetransverse and descending colon:, possibly ischemic colitis. Per GI and from a tree bowel disease in the differential. For which steroids was started. Patient did have a large bloody bowel movement today. -Diabetes mellitus type 2, chronically on insulin pump -Fibromyalgia -GERD -Essential hypertension -Primary osteoarthritis -Hypothyroid -Irritable bowel syndrome -Depression not otherwise specified Plan: patient be scaled back to clear liquids. Discussed with Kalli BUSINESS SYSTEMS ANALYST be from GI. Patient has been put on Solu-Medrol.care was discussed with the patient. Follow.
[2019-03-16 02:17] LABS: Glucose,Whole Blood 227 mg/dL (75-99)
[2019-03-16] MEDS: BENZOCAINE/MENTHOL LOZENG 1 EACH LOZENGE MUCOUS MEM PRN ×3 (02:47→16:55)
[2019-03-16] MEDS: LEVOTHYROXINE 100 MCG TAB PO SCH (06:22)
[2019-03-16 07:10] LABS: Glucose,Whole Blood 244 mg/dL (75-99)
[2019-03-16] MEDS: ALBUTEROL NEBULIZED 2.5 MG/3 ML INHALATION SCH ×4 (07:38→19:35)
[2019-03-16] MEDS: INSULIN PUMP MEAL BOLUS 1 UNIT MISC MISCELLANE SCH ×4 (08:37→20:47)
[2019-03-16] MEDS: PANTOPRAZOLE 40 MG TABLET PO SCH (08:39)
[2019-03-16] MEDS: methylPREDNISolone SOD SUCCI 40 MG/ML 1 ML VIAL IV SCH (08:39)
[2019-03-16] MEDS: ASCORBIC ACID 500 MG TAB PO SCH ×2 (08:40→20:45)
[2019-03-16] MEDS: amLODIPine 2.5 MG TAB PO SCH ×3 (08:40→20:47)
[2019-03-16] MEDS: ASPIRIN 81 MG PO SCH (08:40)
[2019-03-16] MEDS: CHOLECALCIFEROL 1,000 UNIT TAB PO SCH (08:41)
[2019-03-16] MEDS: CYANOCOBALAMIN 500 MCG TAB PO SCH (08:41)
[2019-03-16] MEDS: ATENOLOL 50 MG TAB PO SCH (08:41)
[2019-03-16] MEDS: GABAPENTIN 300 MG CAP PO SCH ×3 (08:42→20:47)
[2019-03-16] MEDS: DULoxetine HCL 60 MG CAPSULE.DR PO SCH (08:42)
[2019-03-16] MEDS: LISINOPRIL 20 MG TAB PO SCH (08:42)
[2019-03-16] MEDS: FENOFIBRATE 54 MG TAB PO SCH (08:42)
[2019-03-16] MEDS: DICYCLOMINE 20 MG TAB PO SCH ×4 (08:42→20:47)
[2019-03-16] MEDS: MELOXICAM 7.5 MG TAB PO SCH (08:43)
[2019-03-16] MEDS: LORATADINE-PSEUDOEPH 5-120 MG 1 EACH TAB.ER.12H PO SCH ×2 (08:43→20:46)
[2019-03-16] MEDS: NORTRIPTYLINE 25 MG CAP PO SCH (08:45)
[2019-03-16] MEDS: PIOGLITAZONE 30 MG TAB PO SCH (08:46)
[2019-03-16] MEDS: PIPERACILLIN-TAZOBACTAM 3.375 GM in SODIUM CHLORIDE 0.9% 100 ML IVPB SCH ×2 (08:49→16:52)
[2019-03-16] MEDS ORDERED: ERGOCALCIFEROL 50,000 UNIT CAP PO SCH (09:00)
[2019-03-16 09:42] LABS: Basophils % (A) 0 %; Eosinophils % (A) 0 %; HGB 11.8 gm/dL (11.4-16.0); Lymphocytes % (A) 11 %; MCH 26.4 pg (25.0-35.0); MCHC 30.3 g/dL (31.0-37.0); MCV 86.9 fL (80.0-100.0); Monocytes # (A) 0.5 k/uL (0-1.0); Monocytes % (A) 5 %; Neutrophils # (A) 7.9 k/uL (1.3-7.7); Neutrophils % (A) 82 %; Platelet Count 240 k/uL (150-450); RBC 4.48 m/uL (3.80-5.40); RDW 13.3 % (11.5-15.5); WBC 9.6 k/uL (3.8-10.6)
[2019-03-16 10:03] LABS: African American GFR (CKD) >90 (>60 ml/min/1.73 sqM); Anion Gap 11 mmol/L; Blood Urea Nitrogen 8 mg/dL (7-17); Calcium 9.1 mg/dL (8.4-10.2); Carbon Dioxide 24 mmol/L (22-30); Chloride 104 mmol/L (98-107); Glucose 253 mg/dL (74-99); Potassium 3.9 mmol/L (3.5-5.1); Sodium 139 mmol/L (137-145)
[2019-03-16 10:15] LABS: C Reactive Protein 178.4 mg/L (<10.0)
--- NOTE | 2019-03-16 10:41 | P.PN ---
<Deanna Roland A - Last Filed: 03/16/19 10:39> Subjective Progress Note Date: 03/16/19 CHIEF COMPLAINT: Rectal bleeding elevated CRP possible ischemic versus inflammatory colitis HISTORY OF PRESENT ILLNESS: Patient examined this morning at bedside. Patient denies abdominal pain. Denies nausea or vomiting. No bowel movement this morning. Denies further episodes of blood per rectum. She is tolerating clear liquid diet. WBC 9.6. Hemoglobin 11.8. CRP this morning is pending. PHYSICAL EXAM: VITAL SIGNS: Currently stable. GENERAL: Well-developed in no acute distress. HEENT: No sclera icterus. Extraocular movements grossly intact. Moist buccal mucosa. Head is atraumatic, normocephalic. Hears conversational speech. No nasal drainage. NECK: Supple without lymphadenopathy. CHEST: Non-labored respirations and equal bilateral excursions. CARDIOVASCULAR: Regular rate with regular rhythm. Palpable 2+ radial pulses. ABDOMEN: Soft. Nondistended. Nontender. Positive bowel sounds. MUSCULOSKELETAL: No clubbing, cyanosis or edema. NEUROLOGIC: No focal or lateralizing signs. Cranial nerves II through XII grossly intact. PSYCH: Appropriate affect. Alert and oriented to person, place and time. SKIN: Well perfused. Good skin turgor. ASSESSMENT: 1. Abdominal pain 2. Bright red blood per rectum 3. Acute colitis 4. Elevated CRP PLAN: 1. Clear liquid diet as tolerated. Diet advancement per GI service 2. Monitor labs 3. IV steroids per GI service 4. Continue antibiotics 5. Will defer any endoscopic studies to GI service 6. No surgical intervention recommended at this time Nurse practitioner note has been reviewed by physician. Signing provider agrees with the documented findings, assessment, and plan of care. Objective - Vital Signs Vital signs: Vital Signs Temp 98.8 F 03/16/19 04:24 Pulse 70 03/16/19 07:50 Resp 18 03/16/19 04:24 BP 160/70 03/16/19 04:24 Pulse Ox 93 L 03/16/19 04:24 Intake & Output 03/15/19 03/16/19 03/16/19 18:59 06:59 18:59 Intake Total 240 300 Balance 240 300 Intake: Intake, IV Titration 100 Amount Piperacillin-Tazobactam 3 100 .375 gm In Sodium Chloride 0.9% 100 ml @ 25 mls/hr IVPB Q8HR [facility] Rx# :[id number] Oral 240 200 Other: Voiding Method Toilet Toilet Toilet # Voids 2 3 # Bowel Movements 2 1 - Labs CBC & Chem 7: 03/16/19 08:25 03/15/19 08:34 Labs: Abnormal Lab Results - Last 24 Hours (Table) 03/15/19 03/15/19 03/15/19 Range/Units 11:15 13:50 17:02 MCHC (31.0-37.0) g/dL Neutrophils # (1.3-7.7) k/uL POC Glucose (mg/dL) 208 H 225 H (75-99) mg/dL C-Reactive Protein 206.7 H (<10.0) mg/L 03/15/19 03/16/19 03/16/19 Range/Units 20:47 02:15 07:08 MCHC (31.0-37.0) g/dL Neutrophils # (1.3-7.7) k/uL POC Glucose (mg/dL) 283 H 227 H 244 H (75-99) mg/dL C-Reactive Protein (<10.0) mg/L 03/16/19 Range/Units 08:25 MCHC 30.3 L (31.0-37.0) g/dL Neutrophils # 7.9 H (1.3-7.7) k/uL POC Glucose (mg/dL) (75-99) mg/dL C-Reactive Protein (<10.0) mg/L Microbiology - Last 24 Hours (Table) 03/13/19 13:50 Stool Culture - Preliminary Stool 03/13/19 13:09 Blood Culture - Preliminary Blood No Growth after 48 hours Assessment and Plan (1) CRP elevated Current Visit: Yes Status: Acute Code(s): R79.82 - ELEVATED C-REACTIVE PROTEIN (CRP) SNOMED Code(s): 496617260208774 (2) Gastrointestinal hemorrhage Current Visit: Yes Status: Acute Code(s): K92.2 - GASTROINTESTINAL HEMORRHAGE, UNSPECIFIED SNOMED Code(s): 46631841 (3) Rectal bleeding Current Visit: Yes Status: Acute Code(s): K62.5 - HEMORRHAGE OF ANUS AND RECTUM SNOMED Code(s): 45723381 <Rut Currie N - Last Filed: 03/16/19 17:10> Subjective Agree with above. Patient denies any significant abdominal pain. In fact, she's been advanced to full liquid diet and tolerating. No surgical intervention needed. Continue with GI follow-up. Objective - Vital Signs Vital signs: Vital Signs Temp 97.8 F 03/16/19 11:04 Pulse 74 03/16/19 16:35 Resp 17 03/16/19 11:04 BP 139/73 03/16/19 11:04 Pulse Ox 92 L 03/16/19 11:04 Intake & Output 03/15/19 03/16/19 03/16/19 18:59 06:59 18:59 Intake Total 240 300 700 Balance 240 300 700 Weight 94.801 kg Intake: Intake, IV Titration 100 100 Amount Piperacillin-Tazobactam 3 100 100 .375 gm In Sodium Chloride 0.9% 100 ml @ 25 mls/hr IVPB Q8HR [facility] Rx# :[id number] Oral 240 200 600 Other: Voiding Method Toilet Toilet Toilet # Voids 2 3 2 # Bowel Movements 2 1 - Labs CBC & Chem 7: 03/16/19 08:25 03/16/19 08:25 Labs: Abnormal Lab Results - Last 24 Hours (Table) 03/15/19 03/16/19 03/16/19 Range/Units 20:47 02:15 07:08 MCHC (31.0-37.0) g/dL Neutrophils # (1.3-7.7) k/uL Creatinine (0.52-1.04) mg/dL Glucose (74-99) mg/dL POC Glucose (mg/dL) 283 H 227 H 244 H (75-99) mg/dL C-Reactive Protein (<10.0) mg/L 03/16/19 03/16/19 03/16/19 Range/Units 08:25 08:25 10:55 MCHC 30.3 L (31.0-37.0) g/dL Neutrophils # 7.9 H (1.3-7.7) k/uL Creatinine 0.43 L (0.52-1.04) mg/dL Glucose 253 H (74-99) mg/dL POC Glucose (mg/dL) 281 H (75-99) mg/dL C-Reactive Protein 178.4 H (<10.0) mg/L Microbiology - Last 24 Hours (Table) 03/13/19 13:09 Blood Culture - Preliminary Blood No Growth after 72 hours 03/13/19 13:50 Stool Culture - Preliminary Stool
[2019-03-16 11:01] LABS: Glucose,Whole Blood 281 mg/dL (75-99)
--- NOTE | 2019-03-16 13:26 | P.PN ---
Subjective Progress Note Date: 03/16/19 Principal diagnosis: GI bleed abdominal pain No further episodes of rectal bleeding. Abdominal pain improved. CRP improving 178. White count 9.6. Hemoglobin 11.8. Tolerating clear liquids. Seen by general surgery. Afebrile. Objective - Vital Signs Vital signs: Vital Signs Temp 97.8 F 03/16/19 11:04 Pulse 74 03/16/19 11:45 Resp 17 03/16/19 11:04 BP 139/73 03/16/19 11:04 Pulse Ox 92 L 03/16/19 11:04 Intake & Output 03/15/19 03/16/19 03/16/19 18:59 06:59 18:59 Intake Total 240 300 700 Balance 240 300 700 Weight 94.801 kg Intake: Intake, IV Titration 100 100 Amount Piperacillin-Tazobactam 3 100 100 .375 gm In Sodium Chloride 0.9% 100 ml @ 25 mls/hr IVPB Q8HR [facility] Rx# :[id number] Oral 240 200 600 Other: Voiding Method Toilet Toilet Toilet # Voids 2 3 2 # Bowel Movements 2 1 - Exam General appearance: The patient is alert, oriented, in no acute distress. HET: Head is normocephalic and atraumatic. Pupils are equal and reactive. Oropharynx is clear without lesions. Neck: Supple without lymphadenopathy. Trachea midline. Heart: S1 S2. Regular rate and rhythm. Lungs: No crackles or wheezes are heard. Congested cough. Scattered rhonchi. Abdomen: Soft, mildly tender across mid abdomen nondistended with bowel sounds. No peritoneal signs. No palpable organomegaly or masses. Extremities: Normal skin color and turgor. No cyanosis, rash, ulceration, clubbing, or edema. Radial and pedal pulses are 2/4 bilaterally. Neurological: No focal deficits. Strength and sensation are grossly intact. - Labs CBC & Chem 7: 03/16/19 08:25 03/16/19 08:25 Labs: Abnormal Lab Results - Last 24 Hours (Table) 03/15/19 03/15/19 03/15/19 Range/Units 13:50 17:02 20:47 MCHC (31.0-37.0) g/dL Neutrophils # (1.3-7.7) k/uL Creatinine (0.52-1.04) mg/dL Glucose (74-99) mg/dL POC Glucose (mg/dL) 225 H 283 H (75-99) mg/dL C-Reactive Protein 206.7 H (<10.0) mg/L 03/16/19 03/16/19 03/16/19 Range/Units 02:15 07:08 08:25 MCHC (31.0-37.0) g/dL Neutrophils # (1.3-7.7) k/uL Creatinine 0.43 L (0.52-1.04) mg/dL Glucose 253 H (74-99) mg/dL POC Glucose (mg/dL) 227 H 244 H (75-99) mg/dL C-Reactive Protein 178.4 H (<10.0) mg/L 03/16/19 03/16/19 Range/Units 08:25 10:55 MCHC 30.3 L (31.0-37.0) g/dL Neutrophils # 7.9 H (1.3-7.7) k/uL Creatinine (0.52-1.04) mg/dL Glucose (74-99) mg/dL POC Glucose (mg/dL) 281 H (75-99) mg/dL C-Reactive Protein (<10.0) mg/L Microbiology - Last 24 Hours (Table) 03/13/19 13:50 Stool Culture - Preliminary Stool 03/13/19 13:09 Blood Culture - Preliminary Blood No Growth after 48 hours Assessment and Plan (1) Rectal bleeding Narrative/Plan: 68-year-old female admitted with diffuse lower abdominal pain fever with bright red blood bowel movements possible acute ischemic colitis possible inflammatory colitis possible infectious colitis. CT reported long segment of uncomplicated colitis. Current Visit: Yes Status: Acute Code(s): K62.5 - HEMORRHAGE OF ANUS AND RECTUM SNOMED Code(s): 94264451 (2) CRP elevated Current Visit: Yes Status: Acute Code(s): R79.82 - ELEVATED C-REACTIVE PROTEIN (CRP) SNOMED Code(s): 378847641716096 (3) Gastrointestinal hemorrhage Current Visit: Yes Status: Acute Code(s): K92.2 - GASTROINTESTINAL HEMORRHAGE, UNSPECIFIED SNOMED Code(s): 62232871 Plan: 1. Full liquid diet with ensure. Daily CBC BMP CRP. Inpatient colonoscopy discussed tentatively scheduled for Tuesday per clinical course. Dr. Avila recommends discontinuance of IV Solu-Medrol. Continue with IV antibiotics. We'll continue to follow closely. General surgical recommendations appreciated. Assessment and plan a care discussed with Dr. Avila
[2019-03-16 17:11] LABS: Glucose,Whole Blood 344 mg/dL (75-99)
--- NOTE | 2019-03-16 19:22 | P.PN ---
Progress Note - Text Progress Note Date: 03/16/19 Chief Complaint: bleeding per rectum Interval history: This is a pleasant [address] Bryant. Chronic stable medical conditions include diabetes, fibromyalgia, GERD, hypertension, osteoarthritis, hypothyroid, irritable bowel syndrome, depression. Patient with 2 days. Having bright red blood per rectum intermittent and variable amount. Also having increasing diffuse abdominal pain no nausea vomiting low-grade fever and rundown admitted for the same. Admitted with acute colitis Today-feels a bit better today. No further bleeding per rectum. Abdominal pain is better. Tolerated clear liquids. Chest is less congested. Slight cough. Review of systems: Was done for constitutional, cardiovascular, GI, pulmonary. relevant finding as above Current medications reviewed that included: insulin pump, IV Zosyn, Physical examination: VITAL SIGNS: 97.8, 72, 17, 1:30 mentally 73, 92% room air GENERAL: , laying in bed, shaking better EYES: Pupils equal. Conjunctiva normal. HEENT: External appearance of nose and ears normal, oral cavity grossly normal. NECK: JVD not raised; masses not palpable. HEART: First and second heart sounds are normal; no edema. LUNGS: Respiratory rate normal; some expiratory crackles. ABDOMEN: Soft, less tenderness, no guarding or rigidity, liver spleen not palpable, no masses palpable. PSYCH: Alert and oriented x3; mood and affect anxiousl. Investigations, reviewed and the clinical context White count 9.6, hemoglobin 11.8, potassium 3.9, BUN 8, creatinine 0.43 Accu-Cheks noted-281, 344 Assessment: -Acute severe colitis affecting thetransverse and descending colon:, possibly ischemic colitis. Feels better today -Diabetes mellitus type 2, chronically on insulin pump -Fibromyalgia -GERD -Essential hypertension -Primary osteoarthritis -Hypothyroid -Irritable bowel syndrome -Depression not otherwise specified Plan: Patient be advanced to full liquids. Discussed with Kalli from GI. IV. Continue. Encouraged to sit up in the bed. It was discussed the patient. We'll repeat a chest x-ray tomorrow. Repeat labs
[2019-03-16 19:51] LABS: Glucose,Whole Blood 337 mg/dL (75-99)
[2019-03-16] MEDS: ACETAMINOPHEN TAB 325 MG TAB PO PRN (20:45)
[2019-03-16] MEDS: ATORVASTATIN 10 MG TAB PO SCH (20:45)
[2019-03-16] MEDS: MELATONIN 5 MG TABLET PO SCH (20:47)
[2019-03-16] MEDS: ZOLPIDEM 10 MG TAB PO PRN (20:51)
[2019-03-17] MEDS: BENZOCAINE/MENTHOL LOZENG 1 EACH LOZENGE MUCOUS MEM PRN ×3 (00:15→23:25)
[2019-03-17] MEDS: PIPERACILLIN-TAZOBACTAM 3.375 GM in SODIUM CHLORIDE 0.9% 100 ML IVPB SCH ×4 (00:15→23:22)
[2019-03-17 02:09] LABS: Glucose,Whole Blood 224 mg/dL (75-99)
[2019-03-17] MEDS: LEVOTHYROXINE 100 MCG TAB PO SCH (05:54)
[2019-03-17 06:58] LABS: Glucose,Whole Blood 104 mg/dL (75-99)
[2019-03-17] MEDS: INSULIN PUMP MEAL BOLUS 1 UNIT MISC MISCELLANE SCH ×4 (08:00→21:14)
--- NOTE | 2019-03-17 08:22 | P.PN ---
Subjective Progress Note Date: 03/17/19 CHIEF COMPLAINT: Colitis HISTORY OF PRESENT ILLNESS: The patient is a 68-year-old female admitted for colitis. She has been on steroids. She has not had a colonoscopy yet while inpatient. She reports generalized malaise. Less energy than yesterday. She has been on full liquid diet. She reports no abdominal pain. No bowel movements. ROS: No reports of nausea and vomiting. No bowel movements. No fevers or chills. No new chest pain. No productive sputum PHYSICAL EXAM: VITAL SIGNS: Reviewed CONSTITUTIONAL: Well developed and in no acute distress. EYES: Conjuctivae without sclera icterus. Extraocular movements grossly intact. HEAD, EARS, NOSE, THROAT: Moist buccal mucosa. Head is atraumatic, normocephalic. Hears conversational speech. No nasal drainage. NECK: Supple. No thyroidomegaly. RESPIRATORY: Non-labored respirations and equal bilateral excursions. CARDIOVASCULAR: Palpable 2+ radial pulses. ABDOMEN: Soft. No peritonitis. Nontender. MUSCULOSKELETAL: No gross deformity of the lower extremities noted. No clubbing. No cyanosis. SKIN: Good skin turgor. Well perfused. NEUROLOGIC: Cranial nerves I through XII grossly intact. No focal or lateralizing signs. PSYCH: Appropriate affect. Alert and oriented to person, place and time. CLINCAL LABS: White blood cell count normal yesterday and now elevated over 12,000. ASSESSMENT: 1. Colitis, unclear etiology 2. Leukocytosis, recurrent, new PLAN: 1. She is pending a colonoscopy by GI. S 2. Will await results of colonoscopy. 3. No surgical intervention at this time. 4. Leukocytosis may also be exaggerated by steroids. Objective - Vital Signs Vital signs: Vital Signs Temp 97.9 F 03/17/19 05:00 Pulse 70 03/17/19 05:00 Resp 16 03/17/19 05:00 BP 152/69 03/17/19 05:00 Pulse Ox 94 L 03/17/19 05:00 Intake & Output 03/16/19 03/17/19 03/17/19 18:59 06:59 18:59 Intake Total 700 100 Balance 700 100 Weight 94.801 kg Intake: Intake, IV Titration 100 100 Amount Piperacillin-Tazobactam 3 100 100 .375 gm In Sodium Chloride 0.9% 100 ml @ 25 mls/hr IVPB Q8HR [facility] Rx# :[id number] Oral 600 Other: Voiding Method Toilet Toilet # Voids 2 1 - Labs CBC & Chem 7: 03/17/19 07:19 03/17/19 08:41 Labs: Abnormal Lab Results - Last 24 Hours (Table) 03/16/19 03/16/19 03/16/19 Range/Units 08:25 08:25 10:55 MCHC 30.3 L (31.0-37.0) g/dL Neutrophils # 7.9 H (1.3-7.7) k/uL Creatinine 0.43 L (0.52-1.04) mg/dL Glucose 253 H (74-99) mg/dL POC Glucose (mg/dL) 281 H (75-99) mg/dL C-Reactive Protein 178.4 H (<10.0) mg/L 03/16/19 03/16/19 03/17/19 Range/Units 17:10 19:50 02:07 MCHC (31.0-37.0) g/dL Neutrophils # (1.3-7.7) k/uL Creatinine (0.52-1.04) mg/dL Glucose (74-99) mg/dL POC Glucose (mg/dL) 344 H 337 H 224 H (75-99) mg/dL C-Reactive Protein (<10.0) mg/L 03/17/19 Range/Units 06:54 MCHC (31.0-37.0) g/dL Neutrophils # (1.3-7.7) k/uL Creatinine (0.52-1.04) mg/dL Glucose (74-99) mg/dL POC Glucose (mg/dL) 104 H (75-99) mg/dL C-Reactive Protein (<10.0) mg/L Microbiology - Last 24 Hours (Table) 03/13/19 13:50 Stool Culture - Final Stool 03/13/19 13:09 Blood Culture - Preliminary Blood No Growth after 72 hours Assessment and Plan (1) Colitis Current Visit: Yes Status: Acute Code(s): K52.9 - NONINFECTIVE GASTROENTERITIS AND COLITIS, UNSPECIFIED SNOMED Code(s): 51300070 (2) CRP elevated Current Visit: Yes Status: Acute Code(s): R79.82 - ELEVATED C-REACTIVE PROTEIN (CRP) SNOMED Code(s): 555038512217081 (3) Gastrointestinal hemorrhage Current Visit: Yes Status: Acute Code(s): K92.2 - GASTROINTESTINAL HE MORRHAGE, UNSPECIFIED SNOMED Code(s): 17846505 (4) Rectal bleeding Current Visit: Yes Status: Acute Code(s): K62.5 - HEMORRHAGE OF ANUS AND RECTUM SNOMED Code(s): 78049867
[2019-03-17 08:31] LABS: Basophils # (A) 0.1 k/uL (0-0.2); Basophils % (A) 0 %; Eosinophils % (A) 0 %; HCT 35.3 % (34.0-46.0); HGB 11.5 gm/dL (11.4-16.0); Lymphocytes # (A) 1.8 k/uL (1.0-4.8); Lymphocytes % (A) 15 %; MCH 27.3 pg (25.0-35.0); MCHC 32.5 g/dL (31.0-37.0); Mean Platelet Volume 9.1; Monocytes # (A) 1.2 k/uL (0-1.0); Monocytes % (A) 10 %; Neutrophils # (A) 8.9 k/uL (1.3-7.7); Neutrophils % (A) 73 %; Platelet Count 277 k/uL (150-450); RDW 13.7 % (11.5-15.5); WBC 12.2 k/uL (3.8-10.6)
[2019-03-17] MEDS: ALBUTEROL NEBULIZED 2.5 MG/3 ML INHALATION SCH ×4 (08:32→20:36)
--- NOTE | 2019-03-17 08:47 | XR ---
EXAMINATION TYPE: XR chest 2V DATE OF EXAM: 03/17/2019 HISTORY: Cough, short of breath. REFERENCE: NONE. FINDINGS: Lung volumes are normal. The heart is not enlarged. Pleural spaces are clear. There is very mild prominence of the interstitium. This may BE acute or chronic. This is acute it could represent an atypical pneumonia or pulmonary edema. This is chronic and could represent pulmonary fibrosis. IMPRESSION: MILD INCREASED INTERSTITIUM DESCRIBED. A PARTIAL DIFFERENTIAL IS GIVEN ABOVE.
[2019-03-17 09:11] LABS: ALT 14 U/L (9-52); AST 28 U/L (14-36); African American GFR (CKD) >90 (>60 ml/min/1.73 sqM); Albumin 3.5 g/dL (3.5-5.0); Alkaline Phosphatase 78 U/L (38-126); Anion Gap 9 mmol/L; Blood Urea Nitrogen 12 mg/dL (7-17); C Reactive Protein 62.3 mg/L (<10.0); Calcium 9.4 mg/dL (8.4-10.2); Carbon Dioxide 26 mmol/L (22-30); Chloride 106 mmol/L (98-107); Glucose 101 mg/dL (74-99); Potassium 3.9 mmol/L (3.5-5.1); Sodium 141 mmol/L (137-145); Total Bilirubin 0.3 mg/dL (0.2-1.3)
--- NOTE | 2019-03-17 09:20 | PN ---
PROGRESS NOTE DATE OF SERVICE: 03/17/2019 The patient is a 68-year-old pleasant white female admitted to the hospital with abdominal pain and bloody diarrhea of [address] scan showed thickening of the sigmoid, descending and transverse colon. The patient is feeling much better today. Abdominal pain resolved. No more bleeding. She did not have any bowel movement for the last 24 hours. No fever, chills, or night sweats. She complains of some headache. PHYSICAL EXAMINATION: Appears comfortable. No apparent distress. Vital signs stable. Blood pressure 132/66, pulse rate 97, temperature 98.3. HEENT examination unremarkable. Conjunctivae pink. Sclerae anicteric. Oral cavity no lesions. NECK: No JVD or lymph node enlargement. CHEST: Clear to auscultation. HEART: Regular rate and rhythm. ABDOMEN: Soft, was nontender, nondistended. Bowel sounds are positive. No organomegaly. EXTREMITIES: No pedal edema. SKIN: No rashes. NEUROLOGIC: Alert and oriented x3. No focal deficits. LABS: From today not available. Yesterday hemoglobin 11.8, WBC 9.6, and platelets 240. IMPRESSION: Acute onset of lower abdominal pain followed by bloody diarrhea of [address] scan showing thickening of the left colon. Clinical picture is very consistent with ischemic colitis. Doubt inflammatory bowel disease. Last colonoscopy was 12 years ago. The patient is doing much better. Symptoms have significantly improved and no further bleeding. Hemoglobin remains stable. RECOMMENDATIONS: We will proceed with colonoscopy tomorrow. Discussed with the patient, risks, benefits and complications of the procedure and she is agreeable to it. Thank you for this consultation. MMODL / IJN: [id number] /
[2019-03-17] MEDS: PANTOPRAZOLE 40 MG TABLET PO SCH ×2 (10:00→10:10)
[2019-03-17] MEDS: LORazepam 1 MG TAB PO PRN (10:07)
[2019-03-17] MEDS: MELOXICAM 7.5 MG TAB PO SCH (10:08)
[2019-03-17] MEDS: DULoxetine HCL 60 MG CAPSULE.DR PO SCH (10:08)
[2019-03-17] MEDS: PIOGLITAZONE 30 MG TAB PO SCH (10:08)
[2019-03-17] MEDS: NORTRIPTYLINE 25 MG CAP PO SCH (10:08)
[2019-03-17] MEDS: LORATADINE-PSEUDOEPH 5-120 MG 1 EACH TAB.ER.12H PO SCH ×2 (10:09→21:08)
[2019-03-17] MEDS: CHOLECALCIFEROL 1,000 UNIT TAB PO SCH (10:09)
[2019-03-17] MEDS: DICYCLOMINE 20 MG TAB PO SCH ×4 (10:09→21:30)
[2019-03-17] MEDS: ASCORBIC ACID 500 MG TAB PO SCH ×2 (10:10→21:08)
[2019-03-17] MEDS: FENOFIBRATE 54 MG TAB PO SCH (10:10)
[2019-03-17] MEDS: amLODIPine 2.5 MG TAB PO SCH ×3 (10:10→21:09)
[2019-03-17] MEDS: ATENOLOL 50 MG TAB PO SCH (10:10)
[2019-03-17] MEDS: LISINOPRIL 20 MG TAB PO SCH (10:10)
[2019-03-17] MEDS: ASPIRIN 81 MG PO SCH (10:11)
[2019-03-17] MEDS: CYANOCOBALAMIN 500 MCG TAB PO SCH (10:11)
[2019-03-17] MEDS: GABAPENTIN 300 MG CAP PO SCH ×3 (10:13→21:09)
[2019-03-17 11:07] LABS: Glucose,Whole Blood 95 mg/dL (75-99)
[2019-03-17 16:46] LABS: Glucose,Whole Blood 122 mg/dL (75-99)
[2019-03-17] MEDS ORDERED: PEG 3350-NA SULF,BICARB,CL/KCL 4,000 ML BOTTLE PO ONE (17:00)
[2019-03-17 20:12] LABS: Glucose,Whole Blood 173 mg/dL (75-99)
[2019-03-17] MEDS: ATORVASTATIN 10 MG TAB PO SCH (21:08)
[2019-03-17] MEDS: ZOLPIDEM 10 MG TAB PO PRN (23:23)
[2019-03-17] MEDS: MELATONIN 5 MG TABLET PO SCH (23:23)
[2019-03-17 23:29] LABS: Glucose,Whole Blood 189 mg/dL (75-99)
[2019-03-18 02:05] LABS: Glucose,Whole Blood 188 mg/dL (75-99)
[2019-03-18] MEDS: LEVOTHYROXINE 100 MCG TAB PO SCH (05:03)
[2019-03-18 07:07] LABS: Glucose,Whole Blood 208 mg/dL (75-99)
[2019-03-18] MEDS: INSULIN PUMP MEAL BOLUS 1 UNIT MISC MISCELLANE SCH ×3 (07:27→18:07)
[2019-03-18] MEDS: PIPERACILLIN-TAZOBACTAM 3.375 GM in SODIUM CHLORIDE 0.9% 100 ML IVPB SCH ×3 (07:27→23:47)
[2019-03-18] MEDS ORDERED: PROPOFOL 10 MG/ML 20 ML VIAL IV ONE (07:49)
[2019-03-18] MEDS ORDERED: IV FLUID CONTINUATION 1,000 ML IV ONE ×2 (07:54)
--- NOTE | 2019-03-18 08:07 | P.PCN ---
Date of Procedure: 03/18/19 Procedure(s) Performed: BRIEF HISTORY: Patient is a 68-year-old pleasant 8 female, admitted hospital with lower abdominal pain and acute lower GI bleed. CAT scan of abdomen showed thickening of the left colon suspicious for acute ischemic colitis was infectious colitis. She is scheduled for colonoscopy to evaluate this further. Her last colonoscopy was 12 years ago. PROCEDURE PERFORMED: Colonoscopy up to distal transverse colon and biopsy. PREOPERATIVE DIAGNOSIS: Lower abdominal pain/lower GI bleeding. IV sedation per Anesthesia. PROCEDURE: After informed consent was obtained, the patient, was brought into the endoscopy unit. IV sedation was administered by Anesthesia under continuous monitoring. Digital rectal examination was normal. Initially the Olympus CF-160 flexible video colonoscope was then inserted in the rectum, gradually advanced into the distal transverse colon. There was severe segmental colitis involving the proximal descending colon and extending into the transverse colon with mucosal congestion and bluish discoloration suspicious for severe ischemic colitis. The scope was advanced to the distal transverse colon and because of the severity of acute colitis and risk of perforation the procedure was terminated. Multiple biopsies were done at the distal margin of colitis. There was a distinct demarcation identified. The distal descending colon; and rectum appeared normal. Retroflexion was performed in the rectum and no lesions were seen. The patient tolerated the procedure well. IMPRESSION: 1. Severe segmental colitis involving the proximal descending colon and part of the transverse colon with mucosal congestion bluish discoloration and severe ed jana consistent with very severe ischemic colitis. Procedure terminated and the scope and was not advanced further because of risk of perforation. 2. Recommend; appeared normal RECOMMENDATIONS: Findings of this examination were discussed with the patient . She was advised to follow with the biopsy results. At this time will continue to monitor her closely because of risk of perforation. Keep her on a clear liquid diet for today and advance as tolerated tomorrow..
[2019-03-18 08:08] LABS: African American GFR (CKD) >90 (>60 ml/min/1.73 sqM); Anion Gap 6 mmol/L; Blood Urea Nitrogen 8 mg/dL (7-17); Calcium 8.3 mg/dL (8.4-10.2); Carbon Dioxide 30 mmol/L (22-30); Chloride 101 mmol/L (98-107); Glucose 195 mg/dL (74-99); Potassium 3.9 mmol/L (3.5-5.1); Sodium 137 mmol/L (137-145)
[2019-03-18] MEDS: ALBUTEROL NEBULIZED 2.5 MG/3 ML INHALATION SCH ×4 (08:20→19:19)
[2019-03-18] MEDS: ASCORBIC ACID 500 MG TAB PO SCH ×2 (09:58→22:13)
[2019-03-18] MEDS: CHOLECALCIFEROL 1,000 UNIT TAB PO SCH (10:05)
[2019-03-18] MEDS: ASPIRIN 81 MG PO SCH (10:05)
[2019-03-18] MEDS: FENOFIBRATE 54 MG TAB PO SCH (10:05)
[2019-03-18] MEDS: CYANOCOBALAMIN 500 MCG TAB PO SCH (10:05)
[2019-03-18] MEDS: MELOXICAM 7.5 MG TAB PO SCH (10:07)
--- NOTE | 2019-03-18 10:51 | P.PN ---
Subjective Progress Note Date: 03/18/19 CHIEF COMPLAINT: Colitis HISTORY OF PRESENT ILLNESS: The patient is a 68-year-old female admitted for co litis. She has completed a colonoscopy. Today she feels more fatigued. No reports of abdominal pain. ROS: No reports of nausea and vomiting. No fevers or chills. No new chest pain. No productive sputum PHYSICAL EXAM: VITAL SIGNS: Reviewed CONSTITUTIONAL: Well developed and in no acute distress. EYES: Conjuctivae without sclera icterus. Extraocular movements grossly intact. HEAD, EARS, NOSE, THROAT: Moist buccal mucosa. Head is atraumatic, normocephalic. Hears conversational speech. No nasal drainage. NECK: Supple. No thyroidomegaly. RESPIRATORY: Non-labored respirations and equal bilateral excursions. CARDIOVASCULAR: Palpable 2+ radial pulses. ABDOMEN: Soft. No peritonitis. Nontender. MUSCULOSKELETAL: No gross deformity of the lower extremities noted. No clubbing. No cyanosis. SKIN: Good skin turgor. Well perfused. NEUROLOGIC: Cranial nerves I through XII grossly intact. No focal or lateralizing signs. PSYCH: Appropriate affect. Alert and oriented to person, place and time. MEDICAL REPORTS: Report reviewed for lower endoscopy with severe colitis. For ri sk of perforation complete colonoscopy not done. ASSESSMENT: 1. Colitis, unclear etiology 2. Leukocytosis, recurrent, new PLAN: 1. Will continue to follow for severity of colitis. 2. Will likely need prolonged IV antibiotics 3. Management of colitis per GI team Objective - Vital Signs Vital signs: Vital Signs Temp 98.0 F 03/18/19 05:00 Pulse 66 03/18/19 08:10 Resp 16 03/18/19 08:10 BP 181/79 03/18/19 05:00 Pulse Ox 93 L 03/18/19 05:00 Intake & Output 03/17/19 03/18/19 03/18/19 18:59 06:59 18:59 Intake Total 240 1280 200 Balance 240 1280 200 Intake: IV 200 Intake, IV Titration 200 Amount Piperacillin-Tazobactam 3 200 .375 gm In Sodium Chloride 0.9% 100 ml @ 25 mls/hr IVPB Q8HR [facility] Rx# :[id number] Oral 240 1080 Other: Voiding Method Toilet Toilet Toilet # Voids 3 2 # Bowel Movements 5 - Labs CBC & Chem 7: 03/17/19 07:19 03/18/19 07:30 Labs: Abnormal Lab Results - Last 24 Hours (Table) 03/17/19 03/17/19 03/17/19 Range/Units 16:42 20:09 23:28 Glucose (74-99) mg/dL POC Glucose (mg/dL) 122 H 173 H 189 H (75-99) mg/dL Calcium (8.4-10.2) mg/dL 03/18/19 03/18/19 03/18/19 Range/Units 02:04 07:06 07:30 Glucose 195 H (74-99) mg/dL POC Glucose (mg/dL) 188 H 208 H (75-99) mg/dL Calcium 8.3 L (8.4-10.2) mg/dL Microbiology - Last 24 Hours (Table) 03/13/19 13:50 Stool Culture - Final Stool 03/13/19 13:09 Blood Culture - Preliminary Blood No Growth after 96 hours Assessment and Plan (1) Colitis Current Visit: Yes Status: Acute Code(s): K52.9 - NONINFECTIVE GASTROENTERITIS AND COLITIS, UNSPECIFIED SNOMED Code(s): 01844153 (2) CRP elevated Current Visit: Yes Status: Acute Code(s): R79.82 - ELEVATED C-REACTIVE PROTEIN (CRP) SNOMED Code(s): 807143024090724 (3) Gastrointestinal hemorrhage Current Visit: Yes Status: Acute Code(s): K92.2 - GASTROINTESTINAL HEMORRHAGE, UNSPECIFIED SNOMED Code(s): 58529882 (4) Rectal bleeding Current Visit: Yes Status: Acute Code(s): K62.5 - HEMORRHAGE OF ANUS AND RECTUM SNOMED Code(s): 32940615
[2019-03-18 11:04] LABS: Glucose,Whole Blood 189 mg/dL (75-99)
[2019-03-18] MEDS: GABAPENTIN 300 MG CAP PO SCH ×3 (11:58→22:15)
[2019-03-18] MEDS: ATENOLOL 50 MG TAB PO SCH (11:58)
[2019-03-18] MEDS: LORATADINE-PSEUDOEPH 5-120 MG 1 EACH TAB.ER.12H PO SCH ×2 (11:58→22:13)
[2019-03-18] MEDS: amLODIPine 2.5 MG TAB PO SCH ×3 (11:58→22:14)
[2019-03-18] MEDS: DICYCLOMINE 20 MG TAB PO SCH ×4 (11:58→22:15)
[2019-03-18] MEDS: DULoxetine HCL 60 MG CAPSULE.DR PO SCH (11:59)
[2019-03-18] MEDS: LISINOPRIL 20 MG TAB PO SCH (11:59)
[2019-03-18] MEDS: PIOGLITAZONE 30 MG TAB PO SCH (11:59)
[2019-03-18] MEDS: NORTRIPTYLINE 25 MG CAP PO SCH (11:59)
[2019-03-18] MEDS: LORazepam 1 MG TAB PO PRN (12:07)
[2019-03-18] MEDS: BENZOCAINE/MENTHOL LOZENG 1 EACH LOZENGE MUCOUS MEM PRN ×2 (14:44→22:12)
[2019-03-18 15:21] LABS: Glucose,Whole Blood 249 mg/dL (75-99)
[2019-03-18 17:05] LABS: Glucose,Whole Blood 157 mg/dL (75-99)
--- NOTE | 2019-03-18 17:28 | P.PN ---
Progress Note - Text Progress Note Date: 03/17/19 Chief Complaint: bleeding per rectum Interval history: This is a pleasant [address] Bryant. Chronic stable medical conditions include diabetes, fibromyalgia, GERD, hypertension, osteoarthritis, hypothyroid, irritable bowel syndrome, depression. Patient with 2 days. Having bright red blood per rectum intermittent and variable amount. Also having increasing diffuse abdominal pain no nausea vomiting low-grade fever and rundown admitted for the same. Admitted with acute colitis Today-abdominal pain is improved. No further bleeding. Patient have her endoscopy on Tuesday. Patient is clear liquids. Chest congestion improved. Getting bowel preparation today. Review of systems: Was done for constitutional, cardiovascular, GI, pulmonary. relevant finding as above Current medications reviewed that included: insulin pump, IV Zosyn, Physical examination: VITAL SIGNS: 97.6, 58, 16, 127/72, para 2% room air GENERAL: , laying in bed, tired appearing EYES: Pupils equal. Conjunctiva normal. HEENT: External appearance of nose and ears normal, oral cavity grossly normal. NECK: JVD not raised; masses not palpable. HEART: First and second heart sounds are normal; no edema. LUNGS: Respiratory rate normal; some expiratory crackles. ABDOMEN: Soft, decreased tenderness, no guarding or rigidity, liver spleen not palpable, no masses palpable. PSYCH: Alert and oriented x3; mood and affect anxiousl. Investigations, reviewed and the clinical context White count 12.2 hemoglobin 11.5 potassium 3.9 Accu-Cheks noted- Assessment: -Acute severe colitis affecting thetransverse and descending colon:, possibly ischemic colitis. Feels better today -Diabetes mellitus type 2, chronically on insulin pump -Fibromyalgia -GERD -Essential hypertension -Primary osteoarthritis -Hypothyroid -Irritable bowel syndrome -Depression not otherwise specified Plan: Continue current medications for plan. Patient due for a endoscopy tomorrow. Will about progression done today. Overall does feel a bit better.
[2019-03-18] MEDS ORDERED: INSULIN ASPART (NovoLOG) 100 UNIT/ML VIAL SQ PRN (18:56)
[2019-03-18 20:09] LABS: Glucose,Whole Blood 290 mg/dL (75-99)
[2019-03-18] MEDS ORDERED: INSULIN ASPART (NovoLOG) 100 UNIT/ML VIAL SQ SCH (21:53)
[2019-03-18] MEDS ORDERED: INSULIN ASPART (NovoLOG) 100 UNIT/ML VIAL SQ ONE (22:00)
[2019-03-18] MEDS: ATORVASTATIN 10 MG TAB PO SCH (22:13)
[2019-03-18] MEDS: MELATONIN 5 MG TABLET PO SCH (22:14)
[2019-03-18] MEDS: ZOLPIDEM 10 MG TAB PO PRN (22:15)
[2019-03-18] MEDS: INSULIN DETEMIR (LEVEMIR) 100 UNIT/ML SYR SQ SCH (22:16)
--- NOTE | 2019-03-18 23:21 | P.PN ---
Progress Note - Text Progress Note Date: 03/18/19 Chief Complaint: bleeding per rectum Interval history: This is a pleasant [address] Bryant. Chronic stable medical conditions include diabetes, fibromyalgia, GERD, hypertension, osteoarthritis, hypothyroid, irritable bowel syndrome, depression. Patient with 2 days. Having bright red blood per rectum intermittent and variable amount. Also having increasing diffuse abdominal pain no nausea vomiting low-grade fever and rundown admitted for the same. Admitted with acute colitis Today-. Had colonoscopy today. Found to have severe segmental ischemic colitis. Later in the day patient was found to be slightly what the nurses described as being off. Told her to take off patient's insulin pump. Call the diabetic coordinator in the morning. In The care of the patient on sliding scale. Keep on clear liquids. Review of systems: Was done for constitutional, cardiovascular, GI, pulmonary. relevant finding as above Current medications reviewed that included: insulin pump, IV Zosyn, Physical examination: VITAL SIGNS: 96.6, 60, 183/-76, 94% room air GENERAL: , laying in bed, tired appearing EYES: Pupils equal. Conjunctiva normal. HEENT: External appearance of nose and ears normal, oral cavity grossly normal. NECK: JVD not raised; masses not palpable. HEART: First and second heart sounds are normal; no edema. LUNGS: Respiratory rate normal; some expiratory crackles. ABDOMEN: Soft, decreased tenderness, no guarding or rigidity, liver spleen not palpable, no masses palpable. PSYCH: Alert and oriented x3; mood and affect anxiousl. Investigations, reviewed and the clinical context Potassium 3.9 Accu-Cheks noted- Assessment: -Acute severe colitis affecting thetransverse and descending colon:, possibly ischemic colitis. Feels better today -Diabetes mellitus type 2, chronically on insulin pump -Fibromyalgia -GERD -Essential hypertension -Primary osteoarthritis -Hypothyroid -Irritable bowel syndrome -Depression not otherwise specified Plan: Is a bit tired. Keep on clear liquids. Follow clinically.
[2019-03-18] MEDS ORDERED: INSULIN NPH 300 UNIT/3 ML VIAL SQ SCH (23:30)
[2019-03-19 02:03] LABS: Glucose,Whole Blood 118 mg/dL (75-99)
[2019-03-19 03:12] LABS: Glucose,Whole Blood 111 mg/dL (75-99)
[2019-03-19] MEDS: LEVOTHYROXINE 100 MCG TAB PO SCH (05:30)
[2019-03-19 06:52] LABS: Glucose,Whole Blood 127 mg/dL (75-99)
[2019-03-19] MEDS: ALBUTEROL NEBULIZED 2.5 MG/3 ML INHALATION SCH ×4 (07:20→20:22)
[2019-03-19 08:05] LABS: African American GFR (CKD) >90 (>60 ml/min/1.73 sqM); Anion Gap 7 mmol/L; Blood Urea Nitrogen 9 mg/dL (7-17); Calcium 8.5 mg/dL (8.4-10.2); Carbon Dioxide 27 mmol/L (22-30); Chloride 103 mmol/L (98-107); Glucose 136 mg/dL (74-99); Potassium 3.7 mmol/L (3.5-5.1); Sodium 137 mmol/L (137-145)
[2019-03-19] MEDS: CYANOCOBALAMIN 500 MCG TAB PO SCH (08:18)
[2019-03-19] MEDS: ATENOLOL 50 MG TAB PO SCH (08:18)
[2019-03-19] MEDS: GABAPENTIN 300 MG CAP PO SCH ×3 (08:18→22:36)
[2019-03-19] MEDS: PANTOPRAZOLE 40 MG TABLET PO SCH (08:18)
[2019-03-19] MEDS: LISINOPRIL 20 MG TAB PO SCH (08:18)
[2019-03-19] MEDS: CHOLECALCIFEROL 1,000 UNIT TAB PO SCH (08:18)
[2019-03-19] MEDS: ASPIRIN 81 MG PO SCH (08:18)
[2019-03-19] MEDS: PIPERACILLIN-TAZOBACTAM 3.375 GM in SODIUM CHLORIDE 0.9% 100 ML IVPB SCH ×2 (08:19→17:08)
[2019-03-19] MEDS: NORTRIPTYLINE 25 MG CAP PO SCH (08:19)
[2019-03-19] MEDS: LORATADINE-PSEUDOEPH 5-120 MG 1 EACH TAB.ER.12H PO SCH ×2 (08:20→22:35)
[2019-03-19] MEDS: DULoxetine HCL 60 MG CAPSULE.DR PO SCH (08:20)
[2019-03-19] MEDS: FENOFIBRATE 54 MG TAB PO SCH (08:20)
[2019-03-19] MEDS: PIOGLITAZONE 30 MG TAB PO SCH (08:21)
[2019-03-19] MEDS: MELOXICAM 7.5 MG TAB PO SCH (08:21)
[2019-03-19] MEDS: INSULIN ASPART (NovoLOG) 100 UNIT/ML VIAL SQ SCH ×4 (08:26→22:40)
[2019-03-19] MEDS: DICYCLOMINE 20 MG TAB PO SCH ×4 (08:33→22:35)
[2019-03-19] MEDS: ASCORBIC ACID 500 MG TAB PO SCH ×2 (08:33→22:35)
[2019-03-19] MEDS: amLODIPine 2.5 MG TAB PO SCH ×3 (08:34→22:35)
[2019-03-19 11:09] LABS: Glucose,Whole Blood 216 mg/dL (75-99)
--- NOTE | 2019-03-19 11:32 | P.PN ---
Subjective Progress Note Date: 03/19/19 CHIEF COMPLAINT: Rectal bleeding elevated CRP possible ischemic versus inflammatory colitis HISTORY OF PRESENT ILLNESS: Patient examined this morning at bedside. Patient denies abdominal pain. Denies nausea or vomiting. No bowel movement this morning. Denies further episodes of blood per rectum. She is tolerating clear liquid diet. Afebrile. PHYSICAL EXAM: VITAL SIGNS: Currently stable. GENERAL: Well-developed in no acute distress. HEENT: No sclera icterus. Extraocular movements grossly intact. Moist buccal mucosa. Head is atraumatic, normocephalic. Hears conversational speech. No nasal drainage. NECK: Supple without lymphadenopathy. CHEST: Non-labored respirations and equal bilateral excursions. CARDIOVASCULAR: Regular rate with regular rhythm. Palpable 2+ radial pulses. ABDOMEN: Soft. Nondistended. Nontender. Positive bowel sounds. MUSCULOSKELETAL: No clubbing, cyanosis or edema. NEUROLOGIC: No focal or lateralizing signs. Cranial nerves II through XII grossly intact. PSYCH: Appropriate affect. Alert and oriented to person, place and time. SKIN: Well perfused. Good skin turgor. ASSESSMENT: 1. Abdominal pain 2. Bright red blood per rectum 3. Acute severe colitis 4. Elevated CRP 5. Leukocytosis PLAN: 1. Clear liquid diet as tolerated. Diet advancement per GI service 2. Monitor labs 3. Continue antibiotics 4. No surgical intervention recommended at this time Nurse practitioner note has been reviewed by physician. Signing provider agrees with the documented findings, assessment, and plan of care. Objective - Vital Signs Vital signs: Vital Signs Temp 98.3 F 03/19/19 04:22 Pulse 64 03/19/19 07:32 Resp 16 03/19/19 04:22 BP 138/65 03/19/19 04:22 Pulse Ox 94 L 03/19/19 04:22 Intake & Output 03/18/19 03/19/19 03/19/19 18:59 06:59 18:59 Intake Total 440 Balance 440 Intake: IV 200 Oral 240 Other: Voiding Method Toilet Toilet # Voids 3 1 - Labs CBC & Chem 7: 03/17/19 07:19 03/19/19 07:00 Labs: Abnormal Lab Results - Last 24 Hours (Table) 03/18/19 03/18/19 03/18/19 Range/Units 15:17 17:04 20:07 Creatinine (0.52-1.04) mg/dL Glucose (74-99) mg/dL POC Glucose (mg/dL) 249 H 157 H 290 H (75-99) mg/dL 03/19/19 03/19/19 03/19/19 Range/Units 02:01 03:11 06:50 Creatinine (0.52-1.04) mg/dL Glucose (74-99) mg/dL POC Glucose (mg/dL) 118 H 111 H 127 H (75-99) mg/dL 03/19/19 03/19/19 Range/Units 07:00 11:05 Creatinine 0.45 L (0.52-1.04) mg/dL Glucose 136 H (74-99) mg/dL POC Glucose (mg/dL) 216 H (75-99) mg/dL Microbiology - Last 24 Hours (Table) 03/13/19 13:09 Blood Culture - Preliminary Blood No Growth after 120 hours Assessment and Plan (1) CRP elevated Current Visit: Yes Status: Acute Code(s): R79.82 - ELEVATED C-REACTIVE PROTEIN (CRP) SNOMED Code(s): 673149381102433 (2) Gastrointestinal hemorrhage Current Visit: Yes Status: Acute Code(s): K92.2 - GASTROINTESTINAL HEMORRHAGE, UNSPECIFIED SNOMED Code(s): 78298069 (3) Rectal bleeding Current Visit: Yes Status: Acute Code(s): K62.5 - HEMORRHAGE OF ANUS AND REC LORETTA SNOMED Code(s): 82511025
--- NOTE | 2019-03-19 11:47 | P.PN ---
Subjective Progress Note Date: 03/19/19 Principal diagnosis: GI bleed abdominal pain Status post colonoscopy evidence of ischemic colitis. Feels well. Tolerating clears. No bleeding. Afebrile. Objective - Vital Signs Vital signs: Vital Signs Temp 98.3 F 03/19/19 04:22 Pulse 56 L 03/19/19 11:43 Resp 16 03/19/19 04:22 BP 138/65 03/19/19 04:22 Pulse Ox 94 L 03/19/19 04:22 Intake & Output 03/18/19 03/19/19 03/19/19 18:59 06:59 18:59 Intake Total 440 Balance 440 Intake: IV 200 Oral 240 Other: Voiding Method Toilet Toilet # Voids 3 1 - Exam General appearance: The patient is alert, oriented, in no acute distress. HET: Head is normocephalic and atraumatic. Pupils are equal and reactive. Oropharynx is clear without lesions. Neck: Supple without lymphadenopathy. Trachea midline. Heart: S1 S2. Regular rate and rhythm. Lungs: No crackles or wheezes are heard. Congested cough. Scattered rhonchi. Abdomen: Soft, mildly tender across mid abdomen nondistended with bowel sounds. No peritoneal signs. No palpable organomegaly or masses. Extremities: Normal skin color and turgor. No cyanosis, rash, ulceration, clubbing, or edema. Radial and pedal pulses are 2/4 bilaterally. Neurological: No focal deficits. Strength and sensation are grossly intact. - Labs CBC & Chem 7: 03/17/19 07:03/19/19 07:00 Labs: Abnormal Lab Results - Last 24 Hours (Table) 03/18/19 03/18/19 03/18/19 Range/Units 15:17 17:04 20:07 Creatinine (0.52-1.04) mg/dL Glucose (74-99) mg/dL POC Glucose (mg/dL) 249 H 157 H 290 H (75-99) mg/dL 03/19/19 03/19/19 03/19/19 Range/Units 02:01 03:11 06:50 Creatinine (0.52-1.04) mg/dL Glucose (74-99) mg/dL POC Glucose (mg/dL) 118 H 111 H 127 H (75-99) mg/dL 03/19/19 03/19/19 Range/Units 07:00 11:05 Creatinine 0.45 L (0.52-1.04) mg/dL Glucose 136 H (74-99) mg/dL POC Glucose (mg/dL) 216 H (75-99) mg/dL Microbiology - Last 24 Hours (Table) 03/13/19 13:09 Blood Culture - Preliminary Blood No Growth after 120 hours Assessment and Plan (1) Rectal bleeding Narrative/Plan: Acute abdominal pain and rectal bleeding secondary to acute ischemic colitis clinical improvement status post colonoscopy Current Visit: Yes Status: Acute Code(s): K62.5 - HEMORRHAGE OF ANUS AND RECTUM SNOMED Code(s): 25744837 (2) Gastrointestinal hemorrhage Current Visit: Yes Status: Acute Code(s): K92.2 - GASTROINTESTINAL HEMORRHAGE, UNSPECIFIED SNOMED Code(s): 65009205 Plan: 1. Will advance to a low residue diet. Discharge per medicine. Follow-up in office in 3-4 weeks for reevaluation. We'll follow on an as-needed basis. Assessment and plan a care discussed with Dr. Avila
[2019-03-19 17:01] LABS: Glucose,Whole Blood 113 mg/dL (75-99)
--- NOTE | 2019-03-19 18:03 | P.PN ---
Subjective patient is admitted for lower GI bleed. Computed tomography scan shows ischemic colitis patient was started on antibiotics. GI and general surgery following the patient. No surgical interventional is now. Patient had colonoscopy was terminated as there was a risk of perforation because of ischemic colitis. Patient the time examination was complaining of no abdominal pain and was started on diet this afternoon . She does not complain any blood in the stools, nausea and vomiting, no diarrhea. Patient said that she hadn't had a bowel movement yet but is passing gases Objective - Vital Signs Vital signs: Vital Signs Temp 98.4 F 03/19/19 11:30 Pulse 58 L 03/19/19 17:12 Resp 16 03/19/19 11:30 BP 133/58 03/19/19 17:12 Pulse Ox 90 L 03/19/19 11:30 Intake & Output 03/18/19 03/19/19 03/19/19 18:59 06:59 18:59 Intake Total 440 590 Balance 440 590 Weight 94.801 kg Intake: IV 200 Oral 240 590 Other: Voiding Method Toilet Toilet # Voids 3 1 3 # Bowel Movements 0 - Exam On exam, alert and oriented x3. HEENT: Conjunctivae normal. eyes normal. NECK: No JVD. No thyroid enlargement. No LNs CARDIOVASCULAR: S1-S2 positive RESPIRATION: Breath sounds diminished in the bases. No rhonchi or crackles. No bronchial breathing. ABDOMEN: Soft, nontender . No guarding. no masses palpable. No ascites, No hepatosplenomegaly.Bowel sounds heard. LEGS: No edema. no swelling NERVOUS SYSTEM: Cranial N 2-12 grossly normal. Moves all 4 limbs. No focal deficits. No sensory deficit. No signs of cerebellar dysfucntion. Skin: no ulcer no rash - Labs CBC & Chem 7: 03/17/19 07:03/19/19 07:00 Labs: Abnormal Lab Results - Last 24 Hours (Table) 03/18/19 03/19/19 03/19/19 Range/Units 20:07 02:01 03:11 Creatinine (0.52-1.04) mg/dL Glucose (74-99) mg/dL POC Glucose (mg/dL) 290 H 118 H 111 H (75-99) mg/dL 03/19/19 03/19/19 03/19/19 Range/Units 06:50 07:00 11:05 Creatinine 0.45 L (0.52-1.04) mg/dL Glucose 136 H (74-99) mg/dL POC Glucose (mg/dL) 127 H 216 H (75-99) mg/dL 03/19/19 Range/Units 16:59 Creatinine (0.52-1.04) mg/dL Glucose (74-99) mg/dL POC Glucose (mg/dL) 113 H (75-99) mg/dL Microbiology - Last 24 Hours (Table) 03/13/19 13:09 Blood Culture - Final Blood No Growth after 144 hours Assessment and Plan Assessment: -Acute severe colitis affecting thetransverse and descending colon:, possibly ischemic colitis. -Diabetes mellitus type 2, chronically on insulin pump -Fibromyalgia -GERD -Essential hypertension -Primary osteoarthritis -Hypothyroid -Irritable bowel syndrome -Depression not otherwise specified plan - Patient will be advanced on diet as tolerated - Continue antibiotics - Continue pain medications. - If the patient tolerates a diet and has no episodes of abdominal pain or nausea vomiting and patient will probably be discharged
[2019-03-19 20:53] LABS: Glucose,Whole Blood 221 mg/dL (75-99)
[2019-03-19] MEDS: BENZOCAINE/MENTHOL LOZENG 1 EACH LOZENGE MUCOUS MEM PRN (22:36)
[2019-03-19] MEDS: ZOLPIDEM 10 MG TAB PO PRN (22:36)
[2019-03-19] MEDS: MELATONIN 5 MG TABLET PO SCH (22:36)
[2019-03-19] MEDS: ATORVASTATIN 10 MG TAB PO SCH (22:38)
[2019-03-19] MEDS: INSULIN DETEMIR (LEVEMIR) 100 UNIT/ML SYR SQ SCH (22:39)
[2019-03-20] MEDS: PIPERACILLIN-TAZOBACTAM 3.375 GM in SODIUM CHLORIDE 0.9% 100 ML IVPB SCH ×2 (00:23→08:11)
[2019-03-20 02:14] LABS: Glucose,Whole Blood 146 mg/dL (75-99)
[2019-03-20] MEDS: LEVOTHYROXINE 100 MCG TAB PO SCH (06:03)
[2019-03-20] MEDS: ALBUTEROL NEBULIZED 2.5 MG/3 ML INHALATION SCH ×2 (06:51→11:06)
[2019-03-20 06:59] LABS: Glucose,Whole Blood 114 mg/dL (75-99)
[2019-03-20] MEDS: INSULIN ASPART (NovoLOG) 100 UNIT/ML VIAL SQ SCH ×2 (07:23→13:16)
[2019-03-20] MEDS: PANTOPRAZOLE 40 MG TABLET PO SCH (08:08)
[2019-03-20] MEDS: ASCORBIC ACID 500 MG TAB PO SCH (08:08)
[2019-03-20] MEDS: MELOXICAM 7.5 MG TAB PO SCH (08:09)
[2019-03-20] MEDS: LORATADINE-PSEUDOEPH 5-120 MG 1 EACH TAB.ER.12H PO SCH (08:09)
[2019-03-20] MEDS: PIOGLITAZONE 30 MG TAB PO SCH (08:09)
[2019-03-20] MEDS: FENOFIBRATE 54 MG TAB PO SCH (08:09)
[2019-03-20] MEDS: CYANOCOBALAMIN 500 MCG TAB PO SCH (08:09)
[2019-03-20] MEDS: ASPIRIN 81 MG PO SCH (08:09)
[2019-03-20] MEDS: DICYCLOMINE 20 MG TAB PO SCH (08:09)
[2019-03-20] MEDS: GABAPENTIN 300 MG CAP PO SCH (08:09)
[2019-03-20] MEDS: CHOLECALCIFEROL 1,000 UNIT TAB PO SCH (08:09)
[2019-03-20] MEDS: ATENOLOL 50 MG TAB PO SCH (08:09)
[2019-03-20] MEDS: LISINOPRIL 20 MG TAB PO SCH (08:09)
[2019-03-20] MEDS: DULoxetine HCL 60 MG CAPSULE.DR PO SCH (08:10)
[2019-03-20] MEDS: amLODIPine 2.5 MG TAB PO SCH (08:10)
[2019-03-20] MEDS: NORTRIPTYLINE 25 MG CAP PO SCH (08:11)
[2019-03-20 08:59] LABS: Basophils # (A) 0.1 k/uL (0-0.2); Basophils % (A) 1 %; Eosinophils # (A) 0.2 k/uL (0-0.7); Eosinophils % (A) 2 %; HCT 38.3 % (34.0-46.0); HGB 11.8 gm/dL (11.4-16.0); Hypochromasia Slight; Lymphocytes # (A) 1.7 k/uL (1.0-4.8); Lymphocytes % (A) 14 %; MCH 26.6 pg (25.0-35.0); MCHC 30.7 g/dL (31.0-37.0); MCV 86.7 fL (80.0-100.0); Mean Platelet Volume 7.8; Monocytes # (A) 0.5 k/uL (0-1.0); Monocytes % (A) 5 %; Neutrophils # (A) 8.8 k/uL (1.3-7.7); Neutrophils % (A) 76 %; Platelet Count 358 k/uL (150-450); RBC 4.42 m/uL (3.80-5.40); RDW 14.7 % (11.5-15.5); WBC 11.5 k/uL (3.8-10.6)
[2019-03-20 11:20] LABS: Glucose,Whole Blood 177 mg/dL (75-99)
--- NOTE | 2019-03-20 11:56 | P.PN ---
Subjective Progress Note Date: 03/20/19 CHIEF COMPLAINT: Rectal bleeding elevated CRP possible ischemic versus inflammatory colitis HISTORY OF PRESENT ILLNESS: Patient examined this morning at bedside. Patient denies abdominal pain. Denies nausea or vomiting. She reports bowel movement this morning. No rectal bleeding. Tolerating diet. WBC 11.5. Hemoglobin 11.8 PHYSICAL EXAM: VITAL SIGNS: Currently stable. GENERAL: Well-developed in no acute distress. HEENT: No sclera icterus. Extraocular movements grossly intact. Moist buccal mucosa. Head is atraumatic, normocephalic. Hears conversational speech. No nasal drainage. NECK: Supple without lymphadenopathy. CHEST: Non-labored respirations and equal bilateral excursions. CARDIOVASCULAR: Regular rate with regular rhythm. Palpable 2+ radial pulses. ABDOMEN: Soft. Nondistended. Nontender. Positive bowel sounds. MUSCULOSKELETAL: No clubbing, cyanosis or edema. NEUROLOGIC: No focal or lateralizing signs. Cranial nerves II through XII grossly intact. PSYCH: Appropriate affect. Alert and oriented to person, place and time. SKIN: Well perfused. Good skin turgor. ASSESSMENT: 1. Abdominal pain 2. Bright red blood per rectum 3. Acute severe colitis 4. Elevated CRP 5. Leukocytosis PLAN: 1. Continue current diet 2. Monitor labs 3. Continue antibiotics 4. No surgical intervention recommended at this time 5. Dr. Currie recommends stopping Vitamins, fenofibrate, Bentyl, Mobic, and zocor at discharge 6. Stable for discharge from a surgical standpoint Nurse practitioner note has been reviewed by physician. Signing provider agrees with the documented findings, assessment, and plan of care. Objective - Vital Signs Vital signs: Vital Signs Temp 98.8 F 03/20/19 04:15 Pulse 64 03/20/19 11:17 Resp 18 03/20/19 04:15 BP 164/72 03/20/19 04:15 Pulse Ox 91 L 03/20/19 04:15 Intake & Output 03/19/19 03/20/19 03/20/19 18:59 06:59 18:59 Intake Total 590 380 Balance 590 380 Weight 94.801 kg Intake: Intake, IV Titration 180 Amount IV Fluid Continuation 1, 80 000 ml @ 0 mls/hr IV .[facility] Rx#:[id number] Piperacillin-Tazobactam 3 100 .375 gm In Sodium Chloride 0.9% 100 ml @ 25 mls/hr IVPB Q8HR [facility] Rx# :[id number] Oral 590 200 Other: Voiding Method Toilet # Voids 3 2 # Bowel Movements 0 - Labs CBC & Chem 7: 03/20/19 08:36 03/19/19 07:00 Labs: Abnormal Lab Results - Last 24 Hours (Table) 03/19/19 03/19/19 03/20/19 Range/Units 16:59 20:49 02:13 WBC (3.8-10.6) k/uL MCHC (31.0-37.0) g/dL Neutrophils # (1.3-7.7) k/uL POC Glucose (mg/dL) 113 H 221 H 146 H (75-99) mg/dL 03/20/19 03/20/19 03/20/19 Range/Units 06:58 08:36 11:19 WBC 11.5 H (3.8-10.6) k/uL MCHC 30.7 L (31.0-37.0) g/dL Neutrophils # 8.8 H (1.3-7.7) k/uL POC Glucose (mg/dL) 114 H 177 H (75-99) mg/dL Microbiology - Last 24 Hours (Table) 03/13/19 13:09 Blood Culture - Final Blood No Growth after 144 hours Assessment and Plan (1) CRP elevated Current Visit: Yes Status: Acute Code(s): R79.82 - ELEVATED C-REACTIVE PROTEIN (CRP) SNOMED Code(s): 852029304244395 (2) Gastrointestinal hemorrhage Current Visit: Yes Status: Acute Code(s): K92.2 - GASTROINTESTINAL HEMORRHAGE, UNSPECIFIED SNOMED Code(s): 93612452 (3) Rectal bleeding Current Visit: Yes Status: Acute Code(s): K62.5 - HEMORRHAGE OF ANUS AND RECTUM SNOMED Code(s): 51221344
[2019-03-20 12:08] VITALS: BP 129/63; PULSE 57; RESP 17; TEMP 98.2
--- NOTE | 2019-03-20 14:39 | P.DS ---
Providers Date of admission: 03/13/19 16:23 Expected date of discharge: 03/20/19 Attending physician: Perez Phan Consults: 03/15/19 13:07 Consult Physician Urgent Consulting Provider: Rut Currie Consult Reason/Comments: rectal bleeding elevated CRP possible ischemic versus inflammatory colitis Do you want consulting provider notified?: Yes [facility] Course: Discharge diagnosis -Acute severe colitis affecting thetransverse and descending colon:, possibly ischemic colitis. -Diabetes mellitus type 2, chronically on insulin pump -Fibromyalgia -GERD -Essential hypertension -Primary osteoarthritis -Hypothyroid -Irritable bowel syndrome -Depression not otherwise specified Hospital course Very pleasant 66-year-old female with a history of hypertension diabetes fibromyalgia irritable bowel syndrome, depression comes in with 2 days of bright red blood per rectum abdominal pain. She was also having low-grade fever. Patient had a computed tomography scan done which showed ischemic colitis. GI and surgery was consulted. She was started on Zosyn as well. Patient slowly started to improve and abdominal pain started to improve as well. No surgical interventions were done. Patient slowly started to tolerate diet and went up to solid diet On 03/20/2019 She said that she's feeling fine No abdominal pain, nausea and vomiting no diarrhea constipation. She had 2 bowel movements today. She does not complain of any fever or chills, no cough no shortness of breath On exam, alert and oriented x3. HEENT: Conjunctivae normal. eyes normal. NECK: No JVD. No thyroid enlargement. No LNs CARDIOVASCULAR: S1-S2 positive RESPIRATION: Breath sounds diminished in the bases. No rhonchi or crackles. No bronchial breathing. ABDOMEN: Soft, nontender . No guarding. no masses palpable. No ascites, No hepatosplenomegaly.Bowel sounds heard. LEGS: No edema. no swelling NERVOUS SYSTEM: Cranial N 2-12 grossly normal. Moves all 4 limbs. No focal deficits. No sensory deficit. No signs of cerebellar dysfucntion. Skin: no ulcer no rash Patient Condition at Discharge: Fair Plan - Discharge Summary Discharge Rx Participant: Yes New Discharge Prescriptions: New Amoxicillin/Potassium Clav [Augmentin 875-125 Tablet] 1 tab PO Q12HR 5 Days #10 tab Continue Lansoprazole [Prevacid] 30 mg PO DAILY DULoxetine HCL [Cymbalta] 60 mg PO DAILY Nortriptyline HCl [Pamelor] 75 mg PO DAILY Gabapentin [Neurontin] 300 mg PO TID metFORMIN HCL 1,000 mg PO BID Pioglitazone HCl [Actos] 30 mg PO DAILY Lisinopril [Zestril] 20 mg PO DAILY Ubidecarenone [Co Q-10] 200 mg PO DAILY Aspirin EC [Ecotrin Low Dose] 81 mg PO DAILY Levothyroxine Sodium [Synthroid] 100 mcg PO DAILY Zolpidem [Ambien] 10 mg PO HS PRN PRN Reason: Insomnia INSULIN LISPRO (For Pump) [humaLOG (For Pump)] 0.01 units SQ-PUMP CONTINUOUS Atenolol 100 mg PO DAILY Acetaminophen Tab [Tylenol] 650 mg PO Q6H PRN PRN Reason: Pain Melatonin 5 mg PO HS amLODIPine [Norvasc] 2.5 mg PO TID Discontinued Dicyclomine [Bentyl] 20 mg PO QID Fenofibrate Nanocrystallized [Fenofibrate] 48 mg PO DAILY Cyanocobalamin [Vitamin B-12] 1,000 mcg PO DAILY Cholecalciferol [Vitamin D3] 2,000 unit PO DAILY Ergocalciferol (Vitamin D2) [Drisdol] 50,000 units PO FR Ascorbic Acid [Vitamin C] 500 mg PO BID Meloxicam [Mobic] 15 mg PO DAILY Simvastatin [Zocor] 20 mg PO HS Discharge Medication List Aspirin EC [Ecotrin Low Dose] 81 mg PO DAILY 11/10/16 [History] Atenolol 100 mg PO DAILY 11/10/16 [History] DULoxetine HCL [Cymbalta] 60 mg PO DAILY 11/10/16 [History] Gabapentin [Neurontin] 300 mg PO TID 11/10/16 [History] INSULIN LISPRO (For Pump) [humaLOG (For Pump)] 0.01 units SQ-PUMP CONTINUOUS 11/10/16 [History] Lansoprazole [Prevacid] 30 mg PO DAILY 11/10/16 [History] Levothyroxine Sodium [Synthroid] 100 mcg PO DAILY 11/10/16 [History] Lisinopril [Zestril] 20 mg PO DAILY 11/10/16 [History] Nortriptyline HCl [Pamelor] 75 mg PO DAILY 11/10/16 [History] Pioglitazone HCl [Actos] 30 mg PO DAILY 11/10/16 [History] Ubidecarenone [Co Q-10] 200 mg PO DAILY 11/10/16 [History] Zolpidem [Ambien] 10 mg PO HS PRN 11/10/16 [History] metFORMIN HCL 1,000 mg PO BID 11/10/16 [History] Acetaminophen Tab [Tylenol] 650 mg PO Q6H PRN 03/12/19 [History] Melatonin 5 mg PO HS 03/12/19 [History] amLODIPine [Norvasc] 2.5 mg PO TID 03/12/19 [History] Amoxicillin/Potassium Clav [Augmentin 875-125 Tablet] 1 tab PO Q12HR 5 Days #10 tab 03/20/19 [Rx] Follow up Appointment(s)/Referral(s): Keyon Bryant MD [Primary Care Provider] - 1-2 days Rut Currie MD [STAFF PHYSICIAN] - 1 Week [facility], [NON-STAFF] - 1-2 Days Activity/Diet/Wound Care/Special Instructions: If you notice any more bleeding episodes, any increase in abdominal pain, any increase in diarrhea or worsening diarrhea, any fevers or chills, any chest pain racing heart, any shortness of breath or cough, any lightheadedness or dizziness, any confusion, any loss of vision or blurry vision, any to come to the ER by calling 911 Discharge Disposition: HOME SELF-CARE
== END 2019-03-20 15:40 | disposition home health service (06) | DRG 395 ==
LOC: EC 13:29 → 3NMEDONC 16:38 → OBSVTOIN 03-13 16:23
PROVIDERS: ADMIT Hospitalist; ATTEND Hospitalist
PROC: 0DBM8ZX Excision of Descending Colon, Via Natural or Artificial Opening Endoscopic, Diagnostic (ICD-10-PCS; principal; 2019-03-18 07:25)
DX: K55.039 Acute (reversible) ischemia of large intestine, extent unspecified (principal); E11.9 Type 2 diabetes mellitus without complications; E89.0 Postprocedural hypothyroidism; K21.9 Gastro-esophageal reflux disease without esophagitis; I10 Essential (primary) hypertension; G47.00 Insomnia, unspecified; M19.91 Primary osteoarthritis, unspecified site; K58.9 Irritable bowel syndrome, unspecified; M79.7 Fibromyalgia; F32.9 Major depressive disorder, single episode, unspecified; Z79.82 Long term (current) use of aspirin; Z96.41 Presence of insulin pump (external) (internal); Z79.4 Long term (current) use of insulin; Z79.890 Hormone replacement therapy; Z79.1 Long term (current) use of non-steroidal anti-inflammatories (NSAID); Z79.899 Other long term (current) drug therapy; Z86.010 Personal history of colon polyps; Z90.49 Acquired absence of other specified parts of digestive tract; Z98.891 History of uterine scar from previous surgery; Z98.890 Other specified postprocedural states; Z98.1 Arthrodesis status; Z98.42 Cataract extraction status, left eye; Z98.41 Cataract extraction status, right eye; Z88.1 Allergy status to other antibiotic agents; Z88.3 Allergy status to other anti-infective agents; Z88.8 Allergy status to other drugs, medicaments and biological substances; Z91.048 Other nonmedicinal substance allergy status; Z82.49 Family history of ischemic heart disease and other diseases of the circulatory system
CPT/HCPCS: 36415; 45380; 71046; 74177; 80048; 80053; 83605; 83630; 85025; 85610; 85730; 86140; 86850; 86900; 86901; 87040; 87045; 87046; 87324; 88305; 93005; 94640; 94760; 99285

== ENCOUNTER → 2019-04-18 | Outpatient (CLI) | payer MEDICARE ==
[2019-04-18 15:40] LABS: African American GFR (CKD) >90 (>60 ml/min/1.73 sqM); Blood Urea Nitrogen 14 mg/dL (7-17); Non-African American GFR(CKD) >90 (>60 ml/min/1.73 sqM)
--- NOTE | 2019-04-18 18:42 | CT ---
EXAMINATION TYPE: CT abdomen pelvis w con DATE OF EXAM: 04/18/2019 COMPARISON: 03/13/2019 HISTORY: f/u colitis CT DLP: 1747.0 mGycm Automated exposure control for dose reduction was used. CONTRAST: CT scan of the abdomen pelvis is performed with IV Contrast, patient injected with 100 mL of Isovue 3 00. FINDINGS- LUNG BASES-interstitial thickening suggestive of chronic interstitial lung disease. The heart is enla rged and there is coronary artery calcification.. LIVER/GB-intrahepatic biliary dilation noted likely secondary to postcholecystectomy changes.. Liver may be slightly reduced in attenuation correlate for hepatic steatosis PANCREAS-there is a 1.8 cm low-density area within the body of the pancreas. Prior exam is noncontras t in the area of concern is not clearly identified. SPLEEN- No gross abnormality is seen. ADRENALS- No gross abnormality is seen. KIDNEYS/BLADDER- no hydronephrosis nephrolithiasis or renal mass. BOWEL-there is a small hiatal hernia.. Bowel gas pattern nonspecific. There is interval near complete resolution of the changes of colitis. Significant retained bowel content correlate for constipation. LYMPH NODES- No greater than 1cm abdominal or pelvic lymph nodes areappreciated. OSSEOUS STRUCTURES-degenerative change seen with postsurgical changes identified.. OTHER- aorta of normal caliber. Atherosclerotic changes are seen in the vasculature. IMPRESSION- 1. Interval near complete resolution of changes of colitis. 2. 1.8 cm low-density lesion within the body of the pancreas. Recommend MRI. 3. Postcholecystectomy changes
== END | disposition home or self-care (01) ==
LOC: RADCTMAIN 15:02
PROVIDERS: ATTEND Surgery Plastic and Reconstructive Surgery
DX: K52.9 Noninfective gastroenteritis and colitis, unspecified (principal); K86.89 Other specified diseases of pancreas; Z90.49 Acquired absence of other specified parts of digestive tract; Z91.048 Other nonmedicinal substance allergy status
CPT/HCPCS: 82565; 84520; 74177; 36415; Q9967

== ENCOUNTER → 2019-08-09 | Outpatient (CLI) | payer MEDICARE ==
--- NOTE | 2019-08-13 10:31 | MM ---
Reason for exam: screening (asymptomatic). Last mammogram was performed 1 year and 2 months ago. History: Patient is postmenopausal and has history of high-risk lesion on a previous biopsy at age 62. High risk left breast needle localization of both breasts, January 30, 2013. High risk left mammotome panel of the left breast, January 23, 2013. Took estrogen for 2 years. Took progesterone for 2 years. Physical Findings: A clinical breast exam by your physician is recommended on an annual basis and results should be correlated with mammographic findings. MG 3D Screening Mammo W/Cad Bilateral CC and MLO view(s) were taken. Prior study comparison: June 08, 2018, bilateral MG 3d screening mammo w/cad. May 30, 2017, bilateral MG 3d screening mammo w/cad. There are scattered fibroglandular densities. Benign appearing bilateral calcifications. No suspicious abnormality. Post excisional change bilaterally. No significant changes when compared with prior studies. ASSESSMENT: Benign, BI-RAD 2 RECOMMENDATION: Routine screening mammogram of both breasts in 1 year.
== END | disposition home or self-care (01) ==
LOC: RADMAMWWP 13:43
PROVIDERS: ATTEND Family Medicine
DX: Z12.31 Encounter for screening mammogram for malignant neoplasm of breast (principal)
CPT/HCPCS: 77063; 77067

== ENCOUNTER → 2019-11-07 | Outpatient (CLI) | payer MEDICARE ==
--- NOTE | 2019-11-08 16:22 | BD ---
EXAMINATION TYPE: Axial Bone Density DATE OF EXAM: 11/07/2019 COMPARISON: 10/25/2014 CLINICAL HISTORY: 69-year-old female postmenopausal screening Height: 64 IN Weight: 209 LBS FRAX RISK QUESTIONS: History of Fracture in Adulthood: RT WRIST AGE 54 Secondary Osteoporosis: 3. Menopause before 45: 4. Malnutrition: 5. Chronic liver disease: YES NON ALCOHOLIC FATTY LIVER DISEASE RISK FACTORS HISTORY OF: History of Wrist Fracture: YES RT WRIST AGE 54 Surgery to Spine: L-SPINE SURGERY When: 2014 Family History of Osteoporosis: YES FATHER Active: YES Postmenopausal woman: AGE 51 Take estrogen and/or progesterone medications: NOT NOW How long: AGE [age] MEDICATIONS: Thyroid Medications: YES Which medication: Levothyroxine How Lon+ YEARS Additional Medications: LEVOTHYROXINE, VIT D, LISINOPRIL, GABAPENTIN, METFORMIN, ACTOS, FENOFIBRATE, ATENOLOL, MOBIC, SLEEPING PILL,VITAMINS, INSULIN EXAM MEASUREMENTS: Bone mineral densitometry was performed using the [employer] System. Bone mineral density about the R hip (g/cm2): 0.911 Bone mineral density about the L hip (g/cm2): 0.882 T Score values are as follows: -----R Neck: -0.9 -----L Neck: -1.1 -----R Total: -0.2 -----L Total: -0.4 Bone mineral density has: Decreased -6.7% since study of: 10/25/2014 Bone mineral density about the L Wrist (g/cm2): 0.586 T Score values are as follows: -----Dist. R+U: -1.9 -----Prox. R+U: -1.1 -----Radius total: -1.5 Bone mineral density BASELINE IMPRESSION: Osteopenia (T Score between -2.5 and -1). There is slightly increased risk of fracture and the patient may be considered for treatment. Re-Screen 2-5 years. NOTE: T-SCORE=SD OF THE YOUNG ADULT MEAN.
== END | disposition home or self-care (01) ==
LOC: RADBDWWP 15:44
PROVIDERS: ATTEND Family Medicine
DX: M85.89 Other specified disorders of bone density and structure, multiple sites (principal); Z78.0 Asymptomatic menopausal state
CPT/HCPCS: 77080

== ENCOUNTER → 2021-01-15 | Outpatient (CLI) | payer MEDICARE ==
--- NOTE | 2021-01-16 09:26 | MM ---
Reason for exam: screening (asymptomatic). Last mammogram was performed 1 year and 5 months ago. History: Patient is postmenopausal and has history of high-risk lesion on a previous biopsy at age 62. High risk left breast needle localization of both breasts, January 30, 2013. High risk left mammotome panel of the left breast, January 23, 2013. Took estrogen for 2 years. Took progesterone for 2 years. Physical Findings: A clinical breast exam by your physician is recommended on an annual basis and results should be correlated with mammographic findings. MG 3D Screening Mammo W/Cad Bilateral CC and MLO view(s) were taken. XCCL view(s) were taken of the right breast. Prior study comparison: August 09, 2019, bilateral MG 3d screening mammo w/cad. June 08, 2018, bilateral MG 3d screening mammo w/cad. The breast tissue is heterogeneously dense. This may lower the sensitivity of mammography. Distortion posterior and central left breast zone C. This finding is changed when compared with previous exams. ASSESSMENT: Incomplete: need additional imaging evaluation, BI-RAD 0 RECOMMENDATION: Special view mammogram of the left breast. If lesion persists on supplemental views, image directed ultrasound is recommended. [facility] will attempt to contact patient to return for supplemental views and ultrasound if indicated.
== END | disposition home or self-care (01) ==
LOC: RADMAMWWP 14:10
PROVIDERS: ATTEND Family Medicine
DX: Z12.31 Encounter for screening mammogram for malignant neoplasm of breast (principal); Z78.0 Asymptomatic menopausal state
CPT/HCPCS: 77063; 77067

== ENCOUNTER → 2021-01-29 | Outpatient (CLI) | payer MEDICARE ==
--- NOTE | 2021-01-29 12:11 | MM ---
Reason for exam: additional evaluation requested from abnormal screening. Last mammogram was performed less than 1 month ago. History: Patient is postmenopausal and has history of high-risk lesion on a previous biopsy at age 62. High risk left breast needle localization of both breasts, January 30, 2013. High risk left mammotome panel of the left breast, January 23, 2013. Took estrogen for 2 years. Took progesterone for 2 years. Physical Findings: Nurse did not find any significant physical abnormalities on exam. MG 3D Work Up W/Cad LT Spot compression CC, spot compression MLO, and LM view(s) were taken of the left breast. Prior study comparison: January 15, 2021, bilateral MG 3d screening mammo w/cad. August 09, 2019, bilateral MG 3d screening mammo w/cad. Nodularity 12 o'clock left breast 5.5cm from nipple measuring 6mm. These results were verbally communicated with the patient and result sheet given to the patient on 01/29/21. ASSESSMENT: Incomplete: need additional imaging evaluation, BI-RAD 0 RECOMMENDATION: Ultrasound of the left breast.
--- NOTE | 2021-01-29 12:12 | USB ---
Reason for exam: additional evaluation requested from abnormal screening. History: Patient is postmenopausal and has history of high-risk lesion on a previous biopsy at age 62. High risk left breast needle localization of both breasts, January 30, 2013. High risk left mammotome panel of the left breast, January 23, 2013. Took estrogen for 2 years. Took progesterone for 2 years. US Breast Workup Limited LT Left limited breast ultrasound including focal area of concern, retroareolar and axilla demonstrates no cystic or solid lesion seen. These results were verbally communicated with the patient and result sheet given to the patient on 01/29/21. ASSESSMENT: Negative, BI-RAD 1 RECOMMENDATION: Return to routine screening mammogram schedule for both breasts.
== END | disposition home or self-care (01) ==
LOC: RADMAMWWP 10:15
PROVIDERS: ATTEND Family Medicine
DX: R92.8 Other abnormal and inconclusive findings on diagnostic imaging of breast (principal); Z78.0 Asymptomatic menopausal state
CPT/HCPCS: 77065; 76642; G0279; 77061

== ENCOUNTER 2021-03-25 07:17 | Day surgery (SDC) | payer MEDICARE ==
[2021-03-20 14:11] VITALS: BMI 36.0
[~2021-03-25 07:17] MED LIST: LACTATED RINGERS 1,000 ML IV SCH; LIDOCAINE 1% (10MG/ML) FOR IV START INTRADERMA PRN
[2021-03-25] MEDS ORDERED: LACTATED RINGERS 1,000 ML IV ONE ×2 (07:50→08:12)
[2021-03-25] MEDS ORDERED: IV FLUID CONTINUATION 1,000 ML IV ONE (07:50)
[2021-03-25 07:54] VITALS: RESP 16; TEMP 96.8
[2021-03-25] MEDS ORDERED: LIDOCAINE 1% INJ 10MG/ML (20 ML MDV) ONE (08:06)
[2021-03-25] MEDS ORDERED: PROPOFOL 10 MG/ML 20 ML VIAL IV ONE (08:06)
[2021-03-25 08:11] LABS: Glucose,Whole Blood 107 mg/dL (75-99)
--- NOTE | 2021-03-25 08:31 | P.PCN ---
Date of Procedure: 03/25/21 Procedure(s) Performed: BRIEF HISTORY: Patient is a 70-year-old pleasant white female scheduled for an elective colonoscopy as a part of evaluation change in bowel habits and prior history of colon polyps. His been complaining of intermittent lower abdominal pain with constipation for the last few months. She denies any rectal bleeding. PROCEDURE PERFORMED: Colonoscopy. PREOPERATIVE DIAGNOSIS: Change in bowel habits and prior history of colon polyps. IV sedation per Anesthesia. PROCEDURE: After informed consent was obtained, the patient, was brought into the endoscopy unit. IV sedation was administered by Anesthesia under continuous monitoring. Digital rectal examination was normal. Initially the Olympus CF-160 flexible video colonoscope was then inserted in the rectum, gradually advanced into the cecum without any difficulty. Careful examination was performed as the scope was gradually being withdrawn. Ileocecal valve and the appendiceal orifice were visualized and appeared normal. Prep was fair.. Mucosa of the cecum, ascending colon, transverse colon, descending colon, sigmoid colon, and rectum appeared normal. Retroflexion was performed in the rectum and no lesions were seen. The patient tolerated the procedure well. IMPRESSION: Normal-appearing colon from rectum to cecum no evidence of colorectal neoplasia . RECOMMENDATIONS: Findings of this examination were discussed with the patient as well as a family.. She was advised to have a repeat screening colonoscopy in 10 years.
[2021-03-25 08:36] VITALS: PULSE 58
[2021-03-25 08:49] VITALS: BP 138/80
== END 2021-03-25 09:27 | disposition home or self-care (01) ==
LOC: ORWHC2ENDO 07:17
PROVIDERS: ATTEND Internal Medicine Gastroenterology
DX: R19.4 Change in bowel habit (principal); Z86.010 Personal history of colon polyps; I10 Essential (primary) hypertension; E78.5 Hyperlipidemia, unspecified; E11.9 Type 2 diabetes mellitus without complications; K21.9 Gastro-esophageal reflux disease without esophagitis; E07.9 Disorder of thyroid, unspecified; Z79.84 Long term (current) use of oral hypoglycemic drugs; Z79.899 Other long term (current) drug therapy; Z88.6 Allergy status to analgesic agent; Z88.1 Allergy status to other antibiotic agents; Z91.048 Other nonmedicinal substance allergy status
CPT/HCPCS: 45378; J2001; J2704

== ENCOUNTER → 2022-02-22 | Outpatient (CLI) | payer MEDICARE ==
--- NOTE | 2022-02-23 19:54 | MM ---
Reason for Exam: Screening (asymptomatic). Last mammogram was performed 1 year(s) and 2 month(s) ago. Patient History: Menarche at age 10. First Full-Term at age 28. Postmenopausal. Estrogen for 2 years until age 51. Progesterone for 2 years until age 51. 01/30/2013, Bilateral High risk Excisional Biopsy. 01/23/2013, High risk Core Biopsy on the left side. Risk Values: Madhuri 5 year model risk: 3.2%. NCI Lifetime model risk: 8.3%. Prior Study Comparison: 08/09/2019 Bilateral Screening Mammogram, [facility]. 01/15/2021 Bilateral Screening Mammogram, [facility]. 01/29/2021 Left Diagnostic Mammogram, [facility]. Tissue Density: There are scattered fibroglandular densities. Findings: Analyzed By CAD. No significant change from prior exams. Postexcisional changes on both sides. Overall Assessment: Benign, BI-RAD 2 Management: Screening Mammogram of both breasts in 1 year. A clinical breast exam by your physician is recommended on an annual basis and results should be correlated with mammographic findings. Also, the patient should continue monthly self breast exams. Electronically signed and approved by: Robb Hemphill M.D. Radiologist
== END | disposition home or self-care (01) ==
LOC: RADMAMWWP 14:42
PROVIDERS: ATTEND Family Medicine
DX: Z12.31 Encounter for screening mammogram for malignant neoplasm of breast (principal); Z78.0 Asymptomatic menopausal state
CPT/HCPCS: 77063; 77067

== ENCOUNTER → 2023-02-24 | Outpatient (CLI) | payer MEDICARE ==
--- NOTE | 2023-02-24 19:04 | BD ---
EXAMINATION TYPE: Axial Bone Density DATE OF EXAM: 02/24/2023 CLINICAL HISTORY: 72 years old Female. ICD-10 CODE: M89.9 DISORDER OF BONE Height: 64 Weight: 174.5 FRAX RISK QUESTIONS: Alcohol (3 or more units per day): no Family History (Parent hip fracture): no Glucocorticoids (More than 3mos): no (Ex: prednisone, prednisolone, methylprednisolone, dexamethasone, and hydrocortisone). History of Fracture in Adulthood: yes Secondary Osteoporosis: 1. Type 1 Diabetes: no 2. Hyperthyroidism: no 3. Menopause before 45: no 4. Malnutrition: no 5. Chronic liver disease: no Rheumatoid Arthritis: no Current Tobacco Use: no RISK FACTORS HISTORY OF: History of Wrist Fracture: right wrist When: 2004 Surgery to Spine/Hip(right/left)/Wrist (right/left): spine fusion l-3/l-4 Family History of Osteoporosis: no Diet low in dairy products/other sources of calcium: yes Postmenopausal woman: yes Lost more than 2 inches in height since high school: no MEDICATIONS: Thyroid Medications: thyroid How Long: since 1998 Additional History: EXAM MEASUREMENTS: Bone mineral densitometry was performed using the [employer] System. Bone mineral density about the R hip (g/cm2): 0.896 Bone mineral density about the L hip (g/cm2): 0.900 T Score values are as follows: -----R Neck: -1.3 -----L Neck: -1.7 -----R Total: -0.9 -----L Total: -0.9 Z Score values are as follows: -----R Neck: 0.3 -----L Neck: -0.2 -----R Total: 0.4 -----L Total: 0.5 Bone mineral density has: decreased -7.3 % since study of: 11.07.2019 Bone mineral density about the L Wrist (g/cm2): 0.554 T Score values are as follows: -----Dist. R+U: -2.4 -----Prox. R+U: -1.7 -----Radius total: -2.0 Z Score values are as follows: -----Dist. R+U: -03 -----Prox. R+U: 0.5 -----Radius total: 0.1 Bone mineral density has: decreased -6.0 % since study of: 11.07.2019 FRAX%s: The graph provided illustrates a 17.4% chance for a major osteoporotic fx and a 3.4% chance f or the hips probability for fx in 10 years time. IMPRESSION: Osteopenia (T Score between -2.5 and -1). There is slightly increased risk of fracture and the patient may be considered for treatment. Re-Screen 2-5 years. NOTE: T-SCORE=SD OF THE YOUNG ADULT MEAN.
--- NOTE | 2023-02-25 07:34 | MM ---
Reason for Exam: Screening (asymptomatic). Last screening mammogram was performed 12 month(s) ago. Patient History: Menarche at age 10. First Full-Term at age 28. Postmenopausal. Patient has history of breast feeding. Estrogen for 2 years until age 51. Progesterone for 2 years until age 51. 01/30/2013, Bilateral High risk Excisional Biopsy. 01/23/2013, High risk Core Biopsy on the left side. Risk Values: Madhuri 5 year model risk: 3.2%. NCI Lifetime model risk: 7.8%. Prior Study Comparison: 05/30/2017 Bilateral Screening Mammogram, [facility]. 06/08/2018 Bilateral Screening Mammogram, [facility]. 08/09/2019 Bilateral Screening Mammogram, [facility]. 01/15/2021 Bilateral Screening Mammogram, [facility]. 01/29/2021 Left Diagnostic Mammogram, [facility]. 02/22/2022 Bilateral MG 3D screening mammo w/cad, [facility]. Tissue Density: The breast tissue is heterogeneously dense. This may lower the sensitivity of mammography. Findings: Analyzed By CAD. There is no suspicious group of microcalcifications or new suspicious mass in either breast. Overall Assessment: Negative, BI-RAD 1 Management: Screening Mammogram of both breasts in [address] [facility] will attempt to contact patient to return for supplemental views and ultrasound if indicated. Patient should continue monthly self-breast exams. A clinical breast exam by your physician is recommended on an annual basis. This exam should not preclude additional follow-up of suspicious palpable abnormalities. Note on Madhuri scores and lifetime risk: 1. A Madhuri score greater than 3% is considered moderate risk. If this is the case, consider specialist referral to assess eligibility for a risk reducing agent. 2. If overall lifetime risk for the development of breast cancer is 20% or higher, the patient may qualify for future screening with alternating mammogram and breast MRI. Electronically signed and approved by: Shashank May DO
== END | disposition home or self-care (01) ==
LOC: RADMAMWWP 13:38
PROVIDERS: ATTEND Family Medicine
DX: Z12.31 Encounter for screening mammogram for malignant neoplasm of breast (principal); M85.89 Other specified disorders of bone density and structure, multiple sites; Z78.0 Asymptomatic menopausal state
CPT/HCPCS: 77063; 77067; 77080

== ENCOUNTER → 2024-03-28 | Outpatient (CLI) | payer MEDICARE ==
--- NOTE | 2024-04-05 21:36 | MM ---
Reason for Exam: Screening (asymptomatic). Last mammogram was performed 1 year(s) and 1 month(s) ago. Patient History: Menarche at age 10. First Full-Term at age 28. Postmenopausal. Patient has history of breast feeding. Estrogen for 2 years until age 51. Progesterone for 2 years until age 51. 01/30/2013, Bilateral High risk Excisional Biopsy. 01/23/2013, High risk Core Biopsy on the left side. Risk Values: Madhuri 5 year model risk: 3.2%. NCI Lifetime model risk: 7.4%. Prior Study Comparison: 01/29/2021 Left Diagnostic Mammogram, [facility]. 02/22/2022 Bilateral MG 3D screening mammo w/cad, [facility]. 02/24/2023 Bilateral MG 3D screening mammo w/cad, [facility]. Tissue Density: There are scattered areas of fibroglandular density. Findings: Analyzed By CAD. Stable postexcisional scar on the left. There is no suspicious group of microcalcifications or new suspicious mass in either breast. Overall Assessment: Benign, BI-RAD 2 Management: Screening Mammogram of both breasts in 1 year. See note below in regards to the patient's increased 5 year Madhuri score. Patient should continue monthly self-breast exams. A clinical breast exam by your physician is recommended on an annual basis. This exam should not preclude additional follow-up of suspicious palpable abnormalities. Note on Madhuri scores and lifetime risk: 1. A Madhuri score greater than 3% is considered moderate risk. If this is the case, consider specialist referral to assess eligibility for a risk reducing agent. 2. If overall lifetime risk for the development of breast cancer is 20% or higher, the patient may qualify for future screening with alternating mammogram and breast MRI. Electronically signed and approved by: Robb Hemphill M.D. Radiologist
== END | disposition home or self-care (01) ==
LOC: RADMAMWWP 14:02
PROVIDERS: ATTEND Family Medicine
DX: Z12.31 Encounter for screening mammogram for malignant neoplasm of breast (principal); Z78.0 Asymptomatic menopausal state; R92.323 Mammographic fibroglandular density, bilateral breasts
CPT/HCPCS: 77063; 77067

== ENCOUNTER 2025-03-12 02:08 | Emergency (ER) | payer MEDICARE ==
[2025-03-12 02:16] VITALS: TEMP 98.3
--- NOTE | 2025-03-12 02:31 | ED ---
General Adult HPI - General Source: patient, EMS, RN notes reviewed Mode of arrival: EMS Limitations: no limitations <Avelina Cheung - Last Filed: 03/12/25 02:29> - General Source: patient, EMS, RN notes reviewed, old records reviewed Mode of arrival: EMS Limitations: no limitations - History of Present Illness -: minutes(s) Location: head, face, chest Radiation: non-radiation Severity scale (1-10): 4 Quality: aching Consistency: constant Improves with: none Worsens with: none Associated Symptoms: chest pain <Keyon Webb - Last Filed: 03/19/25 19:24> - General Chief complaint: Fall Stated complaint: Fall head injury Time Seen by Provider: 03/12/25 02:09 - History of Present Illness Initial comments: 74-year-old female presents to the emergency department for evaluation of fall with head injury. Patient reports that she took a fall just prior to arrival off of the toilet. She states that she is unsure what caused her to fall. She denies any loss of consciousness. Denies blood thinners. She does report that she scraped her left arm but is not having any significant pain in the left arm. She does note headache and slight neck discomfort. She does note that she has been feeling weak over the past 4 to 5 days. She had a fall about a week ago under similar circumstances. She states that she was not evaluated at that time. (Avelina Cheung) This is a 74-year-old who presents to the ER for evaluation of a fall and a head injury. Concern for syncope. Unsure of downtime. She has been feeling weak for about a week now. (Keyon Webb) - Related Data Home Medications Medication Instructions Recorded Confirmed DULoxetine HCL [Cymbalta] 60 mg PO QAM 11/10/16 03/25/21 Lansoprazole [Prevacid] 30 mg PO DAILY 11/10/16 03/25/21 Levothyroxine Sodium [Synthroid] 100 mcg PO QAM 11/10/16 03/25/21 Nortriptyline HCl [Pamelor] 75 mg PO HS 11/10/16 03/25/21 Pioglitazone HCl [Actos] 30 mg PO DAILY 11/10/16 03/25/21 Zolpidem [Ambien] 10 mg PO HS PRN 11/10/16 03/25/21 atenoloL 100 mg PO HS 11/10/16 03/25/21 lisinopriL [Zestril] 20 mg PO QAM 11/10/16 03/25/21 metFORMIN HCL [Glucophage] 1,000 mg PO BID 11/10/16 03/25/21 Melatonin 5 mg PO HS 03/12/19 03/20/21 amLODIPine [Norvasc] 7.5 mg PO QAM 03/12/19 03/25/21 Ascorbic Acid [Vitamin C] 1,000 mg PO DAILY 03/20/21 03/20/21 Cholecalciferol [Vitamin D3 (25 25 mcg PO DAILY 03/20/21 03/20/21 Mcg = 1000 Iu)] Fenofibrate Nanocrystallized 145 mg PO DAILY 03/20/21 03/25/21 [Fenofibrate] Insulin Aspart [NovoLOG] 0 - 4 units SQ ACHS PRN 03/20/21 03/25/21 Insulin Glargine,Hum.rec.anlog 20 units SQ 1200 03/20/21 03/25/21 [Toujeo Solostar] Meloxicam 15 mg PO DAILY 03/20/21 03/20/21 Meloxicam 15 mg PO DAILY 03/20/21 03/20/21 Mirabegron [Myrbetriq] 50 mg PO DAILY 03/20/21 03/20/21 Multivit with Calcium,Iron,Min 1 each PO DAILY 03/20/21 03/20/21 [Women's Multivitamin] Pregabalin [Lyrica] 150 mg PO BID 03/20/21 03/25/21 Simvastatin [Zocor] 20 mg PO HS 03/20/21 03/25/21 Previous Rx's Medication Instructions Recorded Ondansetron Odt [Zofran Odt] 4 mg PO Q8HR PRN #10 tab 10/25/24 Dicyclomine [Bentyl] 10 mg PO QID PRN #20 capsule 02/07/25 Metoclopramide [Reglan] 5 - 10 mg PO Q6H PRN #30 tab 02/07/25 Ondansetron Odt [Zofran Odt] 4 mg PO Q8HR PRN #20 tab 02/07/25 Allergies Allergy/AdvReac Type Severity Reaction Status Date / Time adhesive Allergy causes Verified 03/12/25 02:15 wounds on skin-paper tape ok for short periods celecoxib [From Celebrex] Allergy Rash/Hives Verified 03/12/25 02:15 colistin Allergy Swelling Verified 03/12/25 02:15 [From Cortisporin-TC] hydrocortisone Allergy Swelling Verified 03/12/25 02:15 [From Cortisporin-TC] neomycin Allergy Swelling Verified 03/12/25 02:15 [From Cortisporin-TC] terconazole [From Terazol 3] Allergy Unknown Verified 03/12/25 02:15 thonzonium bromide Allergy Swelling Verified 03/12/25 02:15 [From Cortisporin-TC] adhesive tape AdvReac causes Verified 03/12/25 02:15 wounds on skin-paper tape ok for short periods Review of Systems ROS Other: All systems not noted in ROS Statement are negative. <Avelina Cheung - Last Filed: 03/12/25 02:29> ROS Other: All systems not noted in ROS Statement are negative. <Keyon Webb - Last Filed: 03/19/25 19:24> ROS Statement: Those systems with pertinent positive or pertinent negative responses have been documented in the HPI. Past Medical History Past Medical History: Diabetes Mellitus, Fibromyalgia, GERD/Reflux, Hypertension, Osteoarthritis (OA), Thyroid Disorder Additional Past Medical History / Comment(s): Hypothyroidism, DDD, IBS, insomnia,chronic fatigue,lt torn rotator cuff,hiatal hernia,non alcoholic fatty liver disease,severe colitis 2019 History of Any Multi-Drug Resistant Organisms: None Reported Past Surgical History: Back Surgery, Breast Surgery, Section, Cholecystectomy, Orthopedic Surgery, Tonsillectomy Additional Past Surgical History / Comment(s): Left breast l umpectomy(noncancerous) 2012, partial thyroidectomy, spinal fusion L3-L4 11/2014, C section x 3, Left knee replaced 2010, multiple D&C's, cataract surgery bilaterally, repair of a macular hole right eye Past Anesthesia/Blood Transfusion Reactions: Postoperative Nausea & Vomiting (PONV) Past Psychological History: Depression Smoking Status: Never smoker Past Alcohol Use History: None Reported Past Drug Use History: None Reported - Past Family History Father Family Medical History: Coronary Artery Disease (CAD) Mother Family Medical History: Coronary Artery Disease (CAD) <Avelina Cheung - Last Filed: 03/12/25 02:29> General Exam Limitations: no limitations General appearance: alert, in no apparent distress Head exam: Present: atraumatic, normocephalic, normal inspection Eye exam: Present: normal appearance, PERRL, EOMI. Absent: scleral icterus, conjunctival injection, periorbital swelling ENT exam: Present: normal exam, mucous membranes moist Neck exam: Present: normal inspection. Absent: tenderness, meningismus, lymphadenopathy Respiratory exam: Present: normal lung sounds bilaterally. Absent: respiratory distress, wheezes, rales, rhonchi, stridor Cardiovascular Exam: Present: regular rate, normal rhythm, systolic murmur. Absent: diastolic murmur, rubs, gallop, clicks GI/Abdominal exam: Present: distended (Suprapubic), normal bowel sounds. Absent: tenderness, guarding, rebound, rigid Extremities exam: Present: normal inspection, full ROM, normal capillary refill. Absent: tenderness, pedal edema, joint swelling, calf tenderness Back exam: Present: normal inspection Neurological exam: Present: alert, oriented X3, CN II-XII intact Psychiatric exam: Present: normal affect, normal mood Skin exam: Present: warm, dry, intact, other (Right cheek and right upper arm). Absent: normal color <Avelina Cheung - Last Filed: 03/12/25 02:29> General appearance: alert, in no apparent distress Head exam: Present: atraumatic, normocephalic, normal inspection Eye exam: Present: normal appearance, PERRL, EOMI. Absent: scleral icterus, conjunctival injection, periorbital swelling ENT exam: Present: normal exam, mucous membranes moist Neck exam: Present: normal inspection. Absent: tenderness, meningismus, lymphadenopathy Respiratory exam: Present: normal lung sounds bilaterally. Absent: respiratory distress, wheezes, rales, rhonchi, stridor Cardiovascular Exam: Present: regular rate, normal rhythm, normal heart sounds. Absent: systolic murmur, diastolic murmur, rubs, gallop, clicks GI/Abdominal exam: Present: soft, normal bowel sounds. Absent: distended, tenderness, guarding, rebound, rigid Extremities exam: Present: normal inspection, full ROM, normal capillary refill. Absent: tenderness, pedal edema, joint swelling, calf tenderness Back exam: Present: normal inspection Neurological exam: Present: alert, oriented X3, CN II-XII intact Psychiatric exam: Present: normal affect, normal mood Skin exam: Present: warm, dry, intact, normal color. Absent: rash <Keyon Webb - Last Filed: 03/19/25 19:24> Course <Keyon Webb - Last Filed: 03/19/25 19:24> Vital Signs 03/12/25 03/12/25 03/12/25 02:09 05:02 05:12 Temperature 98.3 F Pulse Rate 80 90 89 Respiratory 18 18 16 Rate Blood Pressure 154/94 196/109 189/96 O2 Sat by Pulse 98 97 94 L Oximetry - Reevaluation(s) Reevaluation #1: Medical records reviewed (Keyon Webb) Reevaluation #2: Patient symptoms improved (Keyon Webb) Reevaluation #3: Patient informed of results questions answered (Keyon Webb) Reevaluation #4: Was pt. sent in by a medical professional or institution (, PA, TECHNOLOGY APPLICATIONS ENGINEER, urgent care, hospital, or chcf...) When possible be specific @ -no Did you speak to anyone other than the patient for history (EMS, parent, family, police, friend...)? What history was obtained from this source @ -no Did you review nursing and triage notes (agree or disagree)? Why? @ -agree Are old charts reviewed (outside hosp., previous admission, EMS record, old EKG, old radiological studies, urgent care reports/EKG's, chcf records)? Report findings @ -yes Differential Diagnosis (chest pain, altered mental status, abdominal pain women, abdominal pain men, vaginal bleeding, weakness, fever, dyspnea, syncope, headache, dizziness, GI bleed, back pain, seizure, CVA, palpatations, mental health, musculoskeletal)? @ -prior EKG interpreted by me (3pts min.). @ -yes X-rays interpreted by me (1pt min.). @ -yes negative for acute disease CT interpreted by me (1pt min.). @ -yes negative for acute disease U/S interpreted by me (1pt. min.). @ -no What testing was considered but not performed or refused? (CT, X-rays, U/S, labs)? Why? @ -none What meds were considered but not given or refused? Why? @ -none Did you discuss the management of the patient with other professionals (professionals i.e. , PA, TECHNOLOGY APPLICATIONS ENGINEER, lab, RT, psych nurse, social director, tapper bit, teacher, ski patrol officer, case management rn)? Give summary @ -no Was smoking cessation discussed for >3mins.? @ -no Was critical care preformed (if so, how long)? @ -no Were there social determinants of health that impacted care today? How? (Homelessness, low income, unemployed, alcoholism, drug addiction, transportation, low edu. Level, literacy, decrease access to med. care, penitentiary, rehab)? @ -none Was there de-escalation of care discussed even if they declined (Discuss DNR or withdrawal of care, Hospice)? DNR status @ -no What co-morbidities impacted this encounter? (DM, HTN, Smoking, COPD, CAD, Cancer, CVA, ARF, Chemo, Hep., AIDS, mental health diagnosis, sleep apnea, morbid obesity)? @ -none Was patient admitted / discharged? Hospital course, mention meds given and route, prescriptions, significant lab abnormalities, going to OR and other pertinent info. @ - 74 female after fall fall off toilet unsure of syncope versus near syncopal event. Patient has persistent weakness here in the ER but improved, no current chest pain or headache. Imaging is negative lab testing normal patient feels well can be discharged home Discharge Undiagnosed new problem with uncertain prognosis? @ -no Drug Therapy requiring intensive monitoring for toxicity (Heparin, Nitro, Insulin, Cardizem)? @ -no Were any procedures done? @ -no Diagnosis/symptom? @ -Weakness and fall Acute, or Chronic, or Acute on Chronic? @ -Acute Uncomplicated (without systemic symptoms) or Complicated (systemic symptoms)? @ -Complicated Side effects of treatment? @ -no Exacerbation, Progression, or Severe Exacerbation? @ -exacerbation Poses a threat to life or bodily function? How? (Chest pain, [place], [place], pneumonia, PE, COPD, DKA, ARF, appy, cholecystitis, CVA, Diverticulitis, Homicidal, Suicidal, threat to staff... and all critical care pts) @ -yes extremes of age (Keyon Webb) Reevaluation #5: Differential Weakness: Hypoglycemia, shock, sepsis, hyponatremia, anemia, infection, [place], ETOH, adverse medicine reaction, overdose, stroke, this is not meant to be an all-inclusive list. (Keyon Webb) EKG Findings - EKG Comments: EKG Findings:: EKG is sinus rate 80 MO 204 QRS 87 QTc 408 - EKG Results: EKG: interpreted by ERMD <Keyon Webb - Last Filed: 03/19/25 19:24> Medical Decision Making <Avelina Cheung - Last Filed: 03/12/25 02:29> - Lab Data Result diagrams: 03/12/25 02:37 03/12/25 02:37 - EKG Data -: EKG Interpreted by Me - Radiology Data Radiology results: report reviewed (Chest x-ray CT brain C-spine negative for acute disease), image reviewed <Keyon Webb - Last Filed: 03/19/25 19:24> - Medical Decision Making Was pt. sent in by a medical professional or institution (GABE [place], TECHNOLOGY APPLICATIONS ENGINEER, urgent care, hospital, or chcf...) When possible be specific @ -[No] Did you speak to anyone other than the patient for history (EMS, parent, family, police, friend...)? What history was obtained from this source @ -[No] Did you review nursing and triage notes (agree or disagree)? Why? @ -[I reviewed and agree with nursing and triage notes] Were old charts reviewed (outside hosp., previous admission, EMS record, old EKG, old radiological studies, urgent care reports/EKG's, chcf records)? Report findings @ -[No old charts were reviewed] Differential Diagnosis (chest pain, altered mental status, abdominal pain women, abdominal pain men, vaginal bleeding, weakness, fever, dyspnea, syncope, headache, dizziness, GI bleed, back pain, seizure, CVA, palpatations, mental health, musculoskeletal)? @ -Differential Weakness: Hypoglycemia, shock, sepsis, hyponatremia, anemia, infection, [place], ETOH, adverse medicine reaction, overdose, stroke, this is not meant to be an all-inclusive list. EKG interpreted by me (3pts min.). @ -EKG@ X-rays interpreted by me (1pt min.). @ -[None done] CT interpreted by me (1pt min.). @ -[None done] U/S interpreted by me (1pt. min.). @ -[None done] What testing was considered but not performed or refused? (CT, X-rays, U/S, labs)? Why? @ -[None] What meds were considered but not given or refused? Why? @ -[None] Did you discuss the management of the patient with other professionals (professionals i.e. Dr., PA, TECHNOLOGY APPLICATIONS ENGINEER, lab, RT, psych nurse, social director, tapper bit, teacher, ski patrol officer, case management rn)? Give summary @ -[No] Was smoking cessation discussed for >3mins.? @ -[No] Was critical care preformed (if so, how long)? @ -[No] Were there social determinants of health that impacted care today? How? (Homelessness, low income, unemployed, alcoholism, drug addiction, transportation, low edu. Level, literacy, decrease access to med. care, penitentiary, rehab)? @ -[No] Was there de-escalation of care discussed even if they declined (Discuss DNR or withdrawal of care, Hospice)? DNR status @ -[No] What co-morbidities impacted this encounter? (DM, HTN, Smoking, COPD, CAD, Cancer, CVA, ARF, Chemo, Hep., AIDS, mental health diagnosis, sleep apnea, morbid obesity)? @ -[None] Was patient admitted / discharged? Hospital course, mention meds given and route, prescriptions, significant lab abnormalities, going to OR and other pertinent info. @ -[hospital course] Undiagnosed new problem with uncertain prognosis? @ -[No] Drug Therapy requiring intensive monitoring for toxicity (Heparin, Nitro, Insulin, Cardizem)? @ -[No] Were any procedures done? @ -[No] Diagnosis/symptom? @ -[default] Acute, or Chronic, or Acute on Chronic? @ -[default] Uncomplicated (without systemic symptoms) or Complicated (systemic symptoms)? @ -[default] Side effects of treatment? @ -[No] Exacerbation, Progression, or Severe Exacerbation? @ -[No] Poses a threat to life or bodily function? How? (Chest pain, [place], [place], pneumonia, PE, COPD, DKA, ARF, appy, cholecystitis, CVA, Diverticulitis, Homicidal, Suicidal, threat to staff... and all critical care pts) @ -[No] (Avelina Cheung) 74 female after fall fall off toilet unsure of syncope versus near syncopal event. Patient has persistent weakness here in the ER but improved, no current chest pain or headache. Imaging is negative lab testing normal patient feels well can be discharged home (Keyon Webb) - Lab Data Lab Results 03/12/25 03/12/25 03/12/25 Range/Units 02:37 02:37 02:37 WBC 7.31 (4.50-10.00) 10*3/uL RBC 5.02 (4.10-5.20) 10*6/uL Hgb 11.8 L (12.0-15.0) g/dL Hct 38.2 (37.2-46.3) % MCV 76.1 L (80.0-97.0) fL MCH 23.5 L (27.0-32.0) pg MCHC 30.9 L (32.0-37.0) g/dL Plt Count 262 (140-440) 10*3/uL MPV 10.1 (9.5-12.2) fL Immature Gran % (Auto) 0.7 % Neutrophils % 44.6 % Lymphocytes % 41.2 % Monocytes % 10.1 % Eosinophils % 2.6 % Basophils % 0.8 % Immature Gran # 0.05 H (0.00-0.04) 10*3/uL Neutrophils # 3.26 (1.80-7.70) 10*3/uL Lymphocytes # 3.01 (0.90-5.00) 10*3/uL Monocytes # 0.74 (0.20-1.00) 10*3/uL Eosinophils # 0.19 (0.04-0.35) 10*3/uL Basophils # 0.06 (0.00-0.10) 10*3/uL PT 10.0 (10.0-12.5) sec INR 0.9 (<1.2) APTT 22.6 (22.0-30.0) sec Sodium 138 (137-145) mmol/L Potassium 4.1 (3.5-5.1) mmol/L Chloride 101 (98-107) mmol/L Carbon Dioxide 26 (22-30) mmol/L Anion Gap 11 mmol/L BUN 24 H (7-17) mg/dL Creatinine 0.59 (0.52-1.04) mg/dL Est GFR (CKD-EPI)AfAm >90 (>60 ml/min/1.73 sqM) Est GFR (CKD-EPI)NonAf >90 (>60 ml/min/1.73 sqM) Glucose 143 H (74-99) mg/dL Calcium 10.4 H (8.4-10.2) mg/dL Magnesium 1.5 L (1.6-2.3) mg/dL Total Bilirubin 0.2 (0.2-1.3) mg/dL AST 18 (14-36) U/L ALT 10 (4-34) U/L Alkaline Phosphatase 98 (38-126) U/L Total Protein 7.1 (6.3-8.2) g/dL Albumin 4.5 (3.5-5.0) g/dL Urine Color Urine Appearance (Clear) Urine pH (5.0-8.0) Ur Specific [place] (1.001-1.035) Urine Protein (Negative) Urine Glucose (UA) (Negative) Urine Ketones (Negative) Urine Blood (Negative) Urine Nitrite (Negative) Urine Bilirubin (Negative) Urine Urobilinogen (<2.0) mg/dL Ur Leukocyte Esterase (Negative) 03/12/ Range/Units 04:07 WBC (4.50-10.00) 10*3/uL RBC (4.10-5.20) 10*6/uL Hgb (12.0-15.0) g/dL Hct (37.2-46.3) % MCV (80.0-97.0) fL MCH (27.0-32.0) pg MCHC (32.0-37.0) g/dL Plt Count (140-440) 10*3/uL MPV (9.5-12.2) fL Immature Gran % (Auto) % Neutrophils % % Lymphocytes % % Monocytes % % Eosinophils % % Basophils % % Immature Gran # (0.00-0.04) 10*3/uL Neutrophils # (1.80-7.70) 10*3/uL Lymphocytes # (0.90-5.00) 10*3/uL Monocytes # (0.20-1.00) 10*3/uL Eosinophils # (0.04-0.35) 10*3/uL Basophils # (0.00-0.10) 10*3/uL PT (10.0-12.5) sec INR (<1.2) APTT (22.0-30.0) sec Sodium (137-145) mmol/L Potassium (3.5-5.1) mmol/L Chloride (98-107) mmol/L Carbon Dioxide (22-30) mmol/L Anion Gap mmol/L BUN (7-17) mg/dL Creatinine (0.52-1.04) mg/dL Est GFR (CKD-EPI)AfAm (>60 ml/min/1.73 sqM) Est GFR (CKD-EPI)NonAf (>60 ml/min/1.73 sqM) Glucose (74-99) mg/dL Calcium (8.4-10.2) mg/dL Magnesium (1.6-2.3) mg/dL Total Bilirubin (0.2-1.3) mg/dL AST (14-36) U/L ALT (4-34) U/L Alkaline Phosphatase (38-126) U/L Total Protein (6.3-8.2) g/dL Albumin (3.5-5.0) g/dL Urine Color Colorless Urine Appearance Clear (Clear) Urine pH 6.5 (5.0-8.0) Ur Specific [place] 1.004 (1.001-1.035) Urine Protein Negative (Negative) Urine Glucose (UA) Negative (Negative) Urine Ketones Negative (Negative) Urine Blood Negative (Negative) Urine Nitrite Negative (Negative) Urine Bilirubin Negative (Negative) Urine Urobilinogen <2.0 (<2.0) mg/dL Ur Leukocyte Esterase Negative (Negative) Disposition <Avelina Cheung - Last Filed: 03/12/25 02:29> Is patient prescribed a controlled substance at d/c from ED?: No Time of Disposition: 05:00 <Keyon Webb - Last Filed: 03/19/25 19:24> Clinical Impression: Fall Disposition: HOME SELF-CARE Condition: Good Instructions (If sedation given, give patient instructions): Fall Prevention for Older Adults (ED) Referrals: Keyon Bryant MD [Primary Care Provider] - 1-2 days
--- NOTE | 2025-03-12 03:05 | CT ---
EXAM: CT Head Without Intravenous Contrast CLINICAL HISTORY: ITS.REASON CT Reason: fall TECHNIQUE: Axial computed tomography images of the head/brain without intravenous contrast. CTDI is 45 mGy and DLP is 1088 mGy-cm. This CT exam was performed using one or more of the following dose reduction techniques: automated exposure control, adjustment of the mA and/or kV according to patient size, and/or use of iterative reconstruction technique. COMPARISON: No relevant prior studies available. FINDINGS: Brain: No hemorrhage or mass effect. Ventricles: No hydrocephalus. Bones/joints: Unremarkable. Soft tissues: Unremarkable. Sinuses: No air fluid level. Mastoid air cells: Clear. IMPRESSION: No acute hemorrhage, hydrocephalus, or mass effect. EXAM: CT Cervical Spine Without Intravenous Contrast CLINICAL HISTORY: ITS.REASON CT Reason: fall TECHNIQUE: Axial computed tomography images of the cervical spine without intravenous contrast. CTDI is 10 mGy and DLP is 320 mGy-cm. This CT exam was performed using one or more of the following dose reduction techniques: automated exposure control, adjustment of the mA and/or kV according to patient size, and/or use of iterative reconstruction technique. COMPARISON: No relevant prior studies available. FINDINGS: Vertebrae: No acute fracture. Discs/spinal canal/neural foramina: degenerative changes. Soft tissues: No prevertebral swelling. 2.9 cm left thyroid gland mass Patulous esophagus. IMPRESSION: No acute fracture or subluxation. 2.9 cm left thyroid gland mass correlate with ultrasound Patulous esophagus.
[2025-03-12 03:34] LABS: Basophils # (A) 0.06 10*3/uL (0.00-0.10); Basophils % (A) 0.8 %; Eosinophils # (A) 0.19 10*3/uL (0.04-0.35); Eosinophils % (A) 2.6 %; HCT 38.2 % (37.2-46.3); HGB 11.8 g/dL (12.0-15.0); Lymphocytes # (A) 3.01 10*3/uL (0.90-5.00); Lymphocytes % (A) 41.2 %; MCH 23.5 pg (27.0-32.0); MCHC 30.9 g/dL (32.0-37.0); MCV 76.1 fL (80.0-97.0); Mean Platelet Volume 10.1 fL (9.5-12.2); Monocytes # (A) 0.74 10*3/uL (0.20-1.00); Monocytes % (A) 10.1 %; Neutrophils # (A) 3.26 10*3/uL (1.80-7.70); Neutrophils % (A) 44.6 %; Platelet Count 262 10*3/uL (140-440); RBC 5.02 10*6/uL (4.10-5.20); RDW 14.6 % (11.5-14.5); WBC 7.31 10*3/uL (4.50-10.00)
[2025-03-12 03:49] LABS: INR 0.9 (<1.2); Partial Thromboplastin Time 22.6 sec (22.0-30.0)
--- NOTE | 2025-03-12 03:57 | XR ---
EXAM: XR Chest, 1 View CLINICAL HISTORY: Weakness TECHNIQUE: Frontal view of the chest. COMPARISON: 03/17/2019 FINDINGS: Lungs: Small amount of linear opacities over the left lower lung zone, likely represent atelectasis. Pleural space: Unremarkable. Mediastinum: Unremarkable. Normal mediastinal contour. Bones/joints: No acute findings. IMPRESSION: Small amount of left basilar atelectasis and less likely pneumonia.
[2025-03-12 04:01] LABS: ALT 10 U/L (4-34); AST 18 U/L (14-36); African American GFR (CKD) >90 (>60 ml/min/1.73 sqM); Albumin 4.5 g/dL (3.5-5.0); Alkaline Phosphatase 98 U/L (38-126); Anion Gap 11 mmol/L; Blood Urea Nitrogen 24 mg/dL (7-17); Calcium 10.4 mg/dL (8.4-10.2); Carbon Dioxide 26 mmol/L (22-30); Chloride 101 mmol/L (98-107); Glucose 143 mg/dL (74-99); Magnesium 1.5 mg/dL (1.6-2.3); Non-African American GFR(CKD) >90 (>60 ml/min/1.73 sqM); Potassium 4.1 mmol/L (3.5-5.1); Sodium 138 mmol/L (137-145); Total Bilirubin 0.2 mg/dL (0.2-1.3); Total Protein 7.1 g/dL (6.3-8.2)
[2025-03-12 04:48] LABS: Appearance,Urine Clear (Clear); Bilirubin,Urine Negative (Negative); Blood,Urine Negative (Negative); Color,Urine Colorless; Glucose,Urine (UA) Negative (Negative); Ketones,Urine Negative (Negative); Leukocyte Esterase,Urine Negative (Negative); Nitrite,Urine Negative (Negative); PH, Urine 6.5 (5.0-8.0); Protein,Urine Negative (Negative); Specific Gravity,Urine 1.004 (1.001-1.035); Urobilinogen,Urine <2.0 mg/dL (<2.0)
[2025-03-12 05:18] VITALS: BP 189/96; PULSE 89; RESP 16
== END 2025-03-12 05:29 | disposition home or self-care (01) ==
LOC: EC 02:08
DX: S09.90XA Unspecified injury of head, initial encounter (principal); Z88.6 Allergy status to analgesic agent; Z91.09 Other allergy status, other than to drugs and biological substances; Z88.8 Allergy status to other drugs, medicaments and biological substances; W19.XXXA Unspecified fall, initial encounter
CPT/HCPCS: 36415; 70450; 71045; 72125; 80053; 81003; 83735; 85025; 85610; 85730; 93005; 99285

== ENCOUNTER → 2025-04-05 | Outpatient (CLI) | payer MEDICARE ==
--- NOTE | 2025-04-05 13:33 | US ---
EXAMINATION TYPE: US thyroid st tissue head/neck DATE OF EXAM: 04/05/2025 COMPARISON: CT cervical spine 03/12/2025 CLINICAL INDICATION: Female, 74 years old with history of E07.9 DISORDER OF THYROID; Abnormal CT, pt states right thyroidectomy years ago TECHNIQUE: Grayscale and color Doppler imaging of the thyroid gland. FINDINGS: GLAND SIZE: Right Lobe: Surgically absent Left Lobe: 6.1 x 2.1 x 2.6 cm Overall Parenchyma: Markedly heterogeneous and mildly hyperemic glandular parenchyma. Isthmus Thickness: 0.6 cm NODULES RIGHT: #of nodules measured on right: 0 LEFT: # of nodules measured on left: 0 ISTHMUS: # of nodules measured in the isthmus: 0 [employer] Manager notes: Bilateral neck scanned, no evidence of lymphadenopathy. Right thyroid bed wnl, lef t thyroid enlarged extending below clavicle. Appearance is above. There graft IMPRESSION: 1. Status post right thyroidectomy. No discrete abnormality within the right thyroidectomy bed. 2. Markedly heterogeneous and enlarged left lobe of the thyroid gland with some hyperemia. Consider d iffuse thyroiditis or goiter. No discrete nodule. [facility], Workstation: [employer] [email or web address], 04/05/2025 1:30 PM
== END | disposition home or self-care (01) ==
LOC: RADUSWWP 12:23
PROVIDERS: ATTEND Family Medicine
DX: E04.1 Nontoxic single thyroid nodule (principal); E07.89 Other specified disorders of thyroid
CPT/HCPCS: 76536

== ENCOUNTER → 2025-04-08 | Outpatient (CLI) | payer MEDICARE ==
--- NOTE | 2025-04-09 08:51 | MM ---
Reason for Exam: Screening (asymptomatic). Last screening mammogram was performed 12 month(s) ago. Patient History: Menarche at age 10. First Full-Term at age 28. Postmenopausal. Patient has history of breast feeding. Estrogen for 2 years until age 51. Progesterone for 2 years until age 51. 01/30/2013, Bilateral High risk Excisional Biopsy. 01/23/2013, High risk Core Biopsy on the left side. Risk Values: Madhuri 5 year model risk: 3.2%. NCI Lifetime model risk: 6.9%. Prior Study Comparison: 02/22/2022 Bilateral MG 3D screening mammo w/cad, [facility]. 02/24/2023 Bilateral MG 3D screening mammo w/cad, [facility]. 03/28/2024 Bilateral MG 3D screening mammo w/cad, [facility]. Tissue Density: There are scattered areas of fibroglandular density. Findings: Analyzed By CAD. Right breast: There is no suspicious group of microcalcifications or new suspicious mass. Left breast: There is no suspicious group of microcalcifications or new suspicious mass. Overall Assessment: Negative, BI-RAD 1 Management: Screening Mammogram of both breasts in [address] [facility] will attempt to contact patient to return for supplemental views and ultrasound if indicated. Patient should continue monthly self-breast exams. A clinical breast exam by your physician is recommended on an annual basis. This exam should not preclude additional follow-up of suspicious palpable abnormalities. Note on Madhuri scores and lifetime risk: 1. A Madhuri score greater than 3% is considered moderate risk. If this is the case, consider specialist referral to assess eligibility for a risk reducing agent. 2. If overall lifetime risk for the development of breast cancer is 20% or higher, the patient may qualify for future screening with alternating mammogram and breast MRI. [facility], , 04/09/2025 8:48 AM. Electronically signed and approved by: Shashank May DO
== END | disposition home or self-care (01) ==
LOC: RADMAMWWP 15:41
PROVIDERS: ATTEND Family Medicine
DX: Z12.31 Encounter for screening mammogram for malignant neoplasm of breast (principal); R92.323 Mammographic fibroglandular density, bilateral breasts; Z78.0 Asymptomatic menopausal state
CPT/HCPCS: 77063; 77067